=== PATIENT | female | born 1955 | race Caucasian/White ===

== ENCOUNTER → 2017-10-25 10:41 | Outpatient (CLI) | payer OTHER, SELFPAY ==
[2017-10-25 12:47] LABS: AST(SGOT) 19 U/L (15-37); Alanine Aminotransfer ALT/SGPT 30 U/L (13-56); Albumin, Serum 3.7 g/dL (3.2-5.0); Alkaline Phosphatase 70 U/L (45-117); Bilirubin, Direct 0.19 mg/dL (0.00-0.30); Cholesterol 129 mg/dL (200); Globulin 3.2 g/dL (2.2-4.2); High Density Lipoprotein 73 mg/dL; Protein, Total 6.9 g/dL (6.4-8.2); Triglycerides 40 mg/dL; Very Low Density Lipoprotein 8 mg/dL (5-40)
== END ==
PROVIDERS: Family Provider Family Medicine; PCP Family Medicine; Visit Provider Internal Medicine Cardiovascular Disease
DX: E78.5 Hyperlipidemia, unspecified (principal); Z79.899 Other long term (current) drug therapy
CPT/HCPCS: 36415; 80061; 80076

== ENCOUNTER → 2017-11-14 10:41 | Outpatient (CLI) | payer OTHER, SELFPAY ==
--- NOTE | 2017-11-14 10:42 | ECHOD_ITS ---
Reason For Study: CAD/ASHD Procedure This was a 2D Doppler, Color Flow transthoracic echocardiogram. Exam performed in department. Left Ventricle Normal size and thickness. The estimated ejection fraction is 65 %. Normal diastology for age. No regional wall motion abnormalities noted. Right Ventricle Normal size and thickness. Normal systolic function. Atria Normal left atrium. Normal right atrium. Normal atrial septum. Mitral Valve The mitral valve is structurally normal. No prolapse or stenosis seen. Tricuspid Valve Normal tricuspid valve. Mild (1+) tricuspid valve insufficiency. Right ventricular systolic pressure estimated to be 27 mmHg. Aortic Valve Normal aortic valve. Trisinus/trileaflet aortic valve. Pulmonic Valve Normal pulmonic valve. Great Vessels Normal aortic root. Normal arch. Normal inferior vena cava. Inferior vena cava collapse with sniff. Pericardium/Pleural No pericardial effusion. MMode/2D Measurements & Calculations LVIDd: 4.0 cm IVSd: 0.92 cm Ao root diam: 3.2 cm LVIDs: 2.4 cm LVPWd: 0.55 cm RVDd: 2.7 cm FS: 40.2 % LAV(MOD-bp): 35.9 ml EDV(MOD-sp4): 50.5 ml SV(MOD-sp4): 32.9 ml LAV(MOD-bp) Indexed: 19.2 ml/m2 ESV(MOD-sp4): 17.6 ml LAV(MOD-sp2): 39.0 ml EF(MOD-sp4): 65.2 % LAV(MOD-sp4): 33.1 ml LA A4 area: 14.4 cm2 RA A4 area: 14.2 cm2 Time Measurements MV dec time: 0.28 sec Doppler Measurements & Calculations MV E max pasquale: 78.2 cm/sec Lat Peak E' Pasquale: 11.8 cm/sec Med Peak E' Pasquale: 16.8 cm/sec MV A max pasquale: 63.5 cm/sec E/E' lat: 6.6 E/E' med: 4.6 MV E/A: 1.2 Ao V2 max: 141.0 cm/sec LV V1 max: 112.3 cm/sec PA V2 max: 88.1 cm/sec Ao max P.0 mmHg LV V1 max P.0 mmHg TR max pasquale: 235.7 cm/sec TR max P.2 mmHg Interpretation Summary The estimated ejection fraction is 65 %. Normal diastology for age. Mild (1+) tricuspid valve insufficiency. Right ventricular systolic pressure estimated to be 27 mmHg. Compared to echo report dated 04/07/2015, no appreciable changes noted. Ordering Physician: Jimy Oconnell Referring Physician: ARSENIO SORIANO Performed By: Mariam Higginbotham RDCS
== END ==
PROVIDERS: Family Provider Family Medicine; PCP Family Medicine; Visit Provider Internal Medicine Cardiovascular Disease
DX: I25.10 Atherosclerotic heart disease of native coronary artery without angina pectoris (principal); I25.2 Old myocardial infarction
CPT/HCPCS: 93306

== ENCOUNTER → 2017-11-24 13:23 | Outpatient (CLI) | payer OTHER, SELFPAY ==
--- NOTE | 2017-11-24 13:24 | STE_ITS ---
Reason For Study: CHEST PAIN Stress Results Protocol: Bradley Protocol Maximum Predicted HR: 160 bpm Target HR: 136 bpm% Max imum Predicted HR: 101 % DurationHeart Rate Stage (mm:ss) (bpm) BPCom ment BASELINE 79 150/90 STAGE 1 3:00 13 4 182/98 STAGE 2 3:00 15 5 194/98 STAGE 3 1:00 16 2 / SOB , FATIGUE RECOVERY 105 152/9 0 Stress Duration: 7:00 mm:ss Maximum Stress HR: 162 bpm Baseline Echocardiogram Findings The estimated ejection fraction is 65 %. Stress Echo Wall motion Data Resting WMIntermediate WMStress WM Resting Wall Motion No regional wall motion abnormalities noted. EKG Data The baseline ECG demonstrates normal sinus rhythm with at rate of _ beats per minute. The patient exercised according to the regular Bradley protocol for a total duration of 7:00. The maximum heart rate attained was 164 beats per minute. This was 102% of maximum predicted heart rate. The patient exercised into stage 3 of the Bradley protocol. During stress, there were no ST or T wave changes noted to suggest ischemia. No clinical angina was noted. No arrhythmias noted. Interpretation Summary The estimated ejection fraction is 65 %. Normal adequate treadmill echocardiogram. Negative for ischemia by EKG and echocardiographic criteria. No anginal symptoms noted. No arrhythmias noted. Hypertensive blood pressure response to exercise. Average exercise capacity for age. Test terminated due to dyspnea and target heart rate achieved. Final LVEF of 75%. Ordering Physician: Jimy Oconnell Referring Physician: Jimy Oconnell Performed By: Gillian Uribe RDCS
== END ==
PROVIDERS: Family Provider Family Medicine; PCP Family Medicine; Visit Provider Internal Medicine Cardiovascular Disease
DX: I25.10 Atherosclerotic heart disease of native coronary artery without angina pectoris (principal); I25.2 Old myocardial infarction; Z95.5 Presence of coronary angioplasty implant and graft
CPT/HCPCS: 93017; 93350

== ENCOUNTER → 2018-03-14 11:24 | Outpatient (CLI) | payer OTHER, SELFPAY ==
--- NOTE | 2018-03-14 11:29 | RAD_ITS ---
STUDY: X-RAY - LUMBAR SPINE REASON FOR EXAM: Female, 62 years old. Lower back pain. Right hip pain. No recent injury. TECHNIQUE: 5 view(s) of the lumbar spine were obtained. COMPARISON: None FINDINGS: Normal lumbar lordosis. There is no substantial scoliosis. There is a normal alignment of the vertebrae. Minimal endplate spondylosis at L2-3. Normal disc space heights. There is no evidence of acute fracture or loss of vertebral axial height. The soft tissue structures are unremarkable. RAD/L/S Spine Min 4 Views IMPRESSION: Minimal degenerative changes of the lumbar spine. Electronically Signed: Frank Florez DO at 21:18 EDT Tel [phone], Service support ,
== END ==
PROVIDERS: Family Provider Family Medicine; PCP Family Medicine; Visit Provider Family Medicine
DX: G57.01 Lesion of sciatic nerve, right lower limb (principal)
CPT/HCPCS: 72110

== ENCOUNTER → 2018-04-25 12:18 | Outpatient (CLI) | payer OTHER, SELFPAY ==
--- NOTE | 2018-04-25 12:21 | RAD_ITS ---
STUDY: X-RAY - RIGHT KNEE REASON FOR EXAM: Female, 62 years old. Knee pain TECHNIQUE: 4 view(s) of the knee. COMPARISON: None. FINDINGS: Normal visualized distal femur. Normal visualized proximal tibia and fibula. Normal proximal tibiofibular articulation. There is mild degenerative arthrosis of the medial femorotibial compartment. Normal lateral femorotibial compartment. There is mild degenerative arthrosis of the patellofemoral articulation. The soft tissue structures are unremarkable. RAD/Knee 4 or More Views IMPRESSION: Degenerative arthrosis. Electronically Signed: Azul Escalante MD at 7:55 EDT Tel , Service support ,
== END ==
PROVIDERS: Family Provider Family Medicine; PCP Family Medicine; Visit Provider Family Medicine
DX: M25.562 Pain in left knee (principal)
CPT/HCPCS: 73564

== ENCOUNTER → 2018-05-01 09:32 | Outpatient (CLI) | payer OTHER, SELFPAY ==
[2018-05-01 12:28] LABS: AST(SGOT) 23 U/L (15-37); Alanine Aminotransfer ALT/SGPT 28 U/L (13-56); Albumin, Serum 3.8 g/dL (3.2-5.0); Alkaline Phosphatase 84 U/L (45-117); Bilirubin, Direct 0.25 mg/dL (0.00-0.30); Cholesterol 138 mg/dL (200); Globulin 3.2 g/dL (2.2-4.2); High Density Lipoprotein 85 mg/dL; Triglycerides 40 mg/dL; Very Low Density Lipoprotein 8 mg/dL (5-40)
== END ==
PROVIDERS: Family Provider Family Medicine; PCP Family Medicine; Visit Provider Internal Medicine Cardiovascular Disease
DX: E78.5 Hyperlipidemia, unspecified (principal); Z79.899 Other long term (current) drug therapy
CPT/HCPCS: 36415; 80061; 80076

== ENCOUNTER 2018-05-07 11:30 | Outpatient (RCR) | payer OTHER, SELFPAY ==
--- NOTE | 2018-05-07 11:58 | HP.PTDCSUM ---
HP - PT D/C Summary It has been my pleasure to treat MARY VICTOR under orders from Jericho Gastelum, for the diagnosis of PIRIFORMIS AND SCIATICA RIGHT SIDE for a total of 9 visit(s). Discharge Date: 05/07/18 Please see the following information for a summary of their discharge status. - Subjective Subjective: doing well .. no pain - Pain Right Lower Extremity Pain Intensity (Out of 10): 0 - Overall Improvement % Improvement: 75 - Objective Objective/Function: POSTURE: WFL. FLEXABLITY: WFL. MMT: quads/hams /hip 4/5. -SLR. LUMBAR ROM: flexion MIN ,extension min loss,side glides - Goals Goal 1:: Independant with HEP. Goal Progress: Goal Met Goal 2:: Decrease pain 50% right L-S region symptoms below knee to improve function. Goal Progress: Goal Met Goal 3:: Patient to improve ablity to squat and perform job demands /jousework tasks with mi limiations Goal Progress: Goal Met Goal 4:: Patient be d/c to prophalaxis Goal Progress: Goal Met - Plan Plan: D/C TO HEP - D/C Information Discharge Comments: HEP ,PLANS TO JOIN If there are questions or concerns regarding this patient's physical therapy, please feel free to call me at [phone]. Thank you for the referral of this patient. Sincerely, Izaiah Padilla, PT,
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
== END 2018-05-07 19:00 | disposition home or self-care (01) ==
LOC: PT 11:30
PROVIDERS: Family Provider Family Medicine; PCP Family Medicine; Visit Provider Family Medicine
DX: M54.31 Sciatica, right side (principal)
CPT/HCPCS: 97014; 97110; 97162; 97530; G0283

== ENCOUNTER → 2018-05-18 07:06 | Outpatient (CLI) | payer OTHER, SELFPAY ==
--- NOTE | 2018-05-18 07:45 | MRI_ITS ---
STUDY: MRI RIGHT KNEE REASON FOR EXAM: Female, 62 years old. Posterior knee pain x6 months TECHNIQUE: Standardized fat and water weighted pulse sequences were obtained in all 3 orthogonal planes. COMPARISON: X-ray April 25, 2018 FINDINGS: Normal medial meniscus. Normal hyaline cartilage of the medial femorotibial compartment. There is mild osteoarthritic spur formation of the medial knee compartment. Normal medial collateral ligamentous complex (MCL). Normal distal semimembranosus, gracilis and semitendinosus tendons. Normal lateral meniscus. Normal hyaline cartilage of the lateral femorotibial compartment. There is mild osteoarthritic spur formation of the lateral knee compartment. Normal proximal tibiofibular articulation. Normal lateral collateral (fibular) ligament. Normal popliteus tendon. Normal biceps femoris tendon. Normal anterior cruciate ligament (ACL). Normal posterior cruciate ligament (PCL). There is arthrosis of the patellofemoral articulation. There is diffuse, full thickness articular cartilage loss of the patellofemoral compartment. Normal medial and lateral patellar retinaculum. Normal quadriceps tendon. Normal patellar tendon. Normal Hoffa's fat pad. There is a moderate volume joint effusion. There is 0.6 diminished signal in the body of the posterior joint, series 3 image 27/40 There is a 3.3 cm Funes's cyst. The soft tissues are unremarkable. The otherwise visualized osseous structures are unremarkable. MRI/Lower Ext Joint Only (Routine) IMPRESSION: No meniscal tear. Tricompartmental change. Joint effusion with loose body in popliteal cyst Electronically Signed: Chava Rojas MD at 10:48 EDT , Service support ,
== END ==
PROVIDERS: Family Provider Family Medicine; PCP Family Medicine; Referring Provider Family Medicine; Visit Provider Family Medicine
DX: M25.561 Pain in right knee (principal)
CPT/HCPCS: 73721

== ENCOUNTER → 2018-06-19 12:22 | Outpatient (CLI) | payer OTHER, SELFPAY ==
--- NOTE | 2018-06-19 12:24 | BI_ITS ---
MAMMOGRAPHY - BILATERAL SCREENING REASON FOR EXAM: Female, 62 years old. Routine annual screening examination. PERTINENT HISTORY: Non-contributory. TECHNIQUE: Digital bilateral breast peter (3D mammographic acquisition) in the CC and MLO projections. 2-D mediolateral oblique (MLO) and craniocaudad (CC) views of both breasts were obtained. CAD: Full Field Digital Mammography with Computer Added Detection was performed. COMPARISON: Comparison is made with prior study dated May 27, 2015. FINDINGS: Breast Composition: There are scattered areas of fibroglandular density. There are no dominant masses or suspicious calcifications. Stable small bilateral axillary lymph nodes. No other significant abnormalities are identified. There has been no significant change since the prior study. BI/SCREENING MAMM (CAD), BILAT IMPRESSION: Stable bilateral screening mammogram. Yearly follow-up mammogram recommended. (A) ASSESSMENT CATEGORY: BIRADS Category 2: Benign. A letter regarding these results will be sent to the patient by the facility within 30 days. Approximately 10% of breast cancers are not detected by mammography. A normal mammogram should not delay biopsy of a clinically suspicious abnormality. [id number] Electronically Signed: Jimenez Perera MD at 15:38 EST Tel [phone], Service support ,
--- NOTE | 2018-06-19 12:26 | BD_ITS ---
STUDY: DUAL ENERGY X-RAY ABSORPTIOMETRY / DXA REASON FOR EXAM: Female, 62 years old. The patient is postmenopausal. Loss of height. TECHNIQUE: Bone Mineral Density (BMD) measurements of lumbar spine and bilateral hips were obtained. COMPARISON: None. FINDINGS: Lumbar Spine (L1-L4): g/cm2 (0.946) / T-score (-1.9) / Z-score (-0.7) Findings are suggestive of osteopenia with a moderate fracture risk. Left Femur Total: g/cm2 (0.957) / T-score (-0.4) / Z-score (0.5) Left Femoral Neck: g/cm2 (0.934) / T-score (-0.7) / Z-score (0.5) Right Femur Total: g/cm2 (0.938) / T-score (-0.6) / Z-score (0.4) Right Femoral Neck: g/cm2 (0.907) / T-score (-0.9) / Z-score (0.3) BD/Dexa Bone Density Study IMPRESSION: The patient is considered osteopenic as outlined below according to World Harshad Organization (WHO) criteria with a moderate fracture risk. Reference Information: The T-score is the number of standard deviations above or below the standard which is normal for young adults at their peak bone mineral density. The World Health Organization (WHO) interprets the T-scores as follows: Above -1 Normal bone density Between -1 and -2.5 Osteopenia Equal to / or below -2.5 Osteoporosis As a practical clinical guideline, osteopenia may be graded as follows: Mild -1 through -1.5 Moderate -1.6 through -2.0 Severe -2.1 through -2.4 The Z-score is the number of standard deviations above or below age-matched controls. A Z-score of less than -1.5 would be considered abnormal. References: 1. NIH Osteoporosis and Related Bone Diseases http://www.osteo.org 2. International Society for Clinical Densitometry http://www.iscd.org 3. National Osteoporosis Foundation http://www.nof.org Electronically Signed: Jimenez Perera MD at 9:27 EST Tel [phone], Service support ,
== END ==
PROVIDERS: Family Provider Family Medicine; PCP Family Medicine; Referring Provider Family Medicine; Visit Provider Family Medicine
DX: Z12.31 Encounter for screening mammogram for malignant neoplasm of breast (principal); M85.80 Other specified disorders of bone density and structure, unspecified site; Z78.0 Asymptomatic menopausal state
CPT/HCPCS: 77063; 77067; 77080

== ENCOUNTER → 2018-08-17 14:22 | Outpatient (CLI) | payer OTHER, SELFPAY ==
[2018-06-08 16:05] VITALS: BMI 23.8
[2018-08-17 15:49] LABS: Absolute Lymphocyte Count 1.62 X10^3/ul (0.83-4.51); Absolute Neutrophil Count 2.7 X10^3/uL (2.0-7.7); Basophil# 0.05 X10^3/uL; Eosinophil# 0.12 X10^3/uL; Eosinophils% 2.5 % (0-5); Hematocrit 39.6 % (37-47); Hemoglobin 13.1 g/dl (12.0-15.0); Lymphocyte # 1.62 X10^3/ul (4.0); Lymphocyte % 33.3 % (19-41); Mean Corp Hgb Conc 33.1 g/gl (32-36); Mean Corpuscular Hgb 31.4 pg (27.0-32.0); Mean Platelet Vol. 11.4 fl (6.2-12.0); Monocyte# 0.35 X10^3/uL; Monocyte% 7.2 % (0-10); Neutrophil # 2.72 X10^3/uL (2.7-7.7); Neutrophil % 55.8 % (47-70); Platelet Count 173 K/mm3 (150-450); RBC Distribution Width CV 12.6 % (11.6-14.6); RBC Distribution Width SD 42.8 fl (35.1-43.9); Red Blood Count 4.17 M/mm3 (4.2-5.4); White Blood Count 4.9 K/mm3 (4.4-11.0)
[2018-08-17 15:50] LABS: POSITIVE COUNT NO; POSITIVE DIFFERENTIAL NO; POSITIVE MORPHOLOGY NO
[2018-08-17 16:25] LABS: ALB/GLOB Ratio 1.4 RATIO (0.9-2.4); AST(SGOT) 20 U/L (15-37); Alanine Aminotransfer ALT/SGPT 31 U/L (13-56); Albumin, Serum 3.8 g/dL (3.2-5.0); Alkaline Phosphatase 75 U/L (45-117); Anion Gap 9 (5-15); BUN 13 mg/dL (7-18); BUN/Creat Ratio 17.1 RATIO (10-20); Calcium,Total 8.8 mg/dL (8.5-10.1); Chloride 107 mmol/L (98-107); Creatinine, Serum 0.76 mg/dL (0.55-1.02); EST Glomerular Filtration Rate 82 mL/min (>60); Est Glom Filt Rate - Afr Amer 100 mL/min (>60); Ferritin 56 ng/mL (8-252); Globulin 2.7 g/dL (2.2-4.2); Glucose 82 mg/dL (74-106); Iron 101 ug/dL (50-170); Protein, Total 6.5 g/dL (6.4-8.2); Sodium Level 142 mmol/L (136-145)
[2018-08-17 16:43] LABS: Vitamin B12 224 pg/mL (211-911); Vitamin D,25 Hydroxy 40.1 ng/mL (29.95-100.01)
== END ==
PROVIDERS: Family Provider Family Medicine; PCP Family Medicine; Referring Provider Family Medicine; Visit Provider Family Medicine
DX: R53.83 Other fatigue (principal)
CPT/HCPCS: 36415; 80053; 82306; 82607; 82728; 83540; 84443; 85025

== ENCOUNTER → 2018-12-31 08:53 | Outpatient (CLI) | payer OTHER, SELFPAY ==
[2018-12-31 13:59] LABS: Vitamin B12 549 pg/mL (211-911)
== END ==
PROVIDERS: Family Provider Family Medicine; PCP Family Medicine; Referring Provider Family Medicine; Visit Provider Family Medicine
DX: E53.8 Deficiency of other specified B group vitamins (principal)
CPT/HCPCS: 36415; 82607

== ENCOUNTER → 2019-07-17 10:54 | Outpatient (CLI) | payer OTHER, SELFPAY ==
[2019-05-30 11:18] VITALS: BMI 21.9
[2019-07-17 11:54] LABS: AST(SGOT) 24 U/L (15-37); Alanine Aminotransfer ALT/SGPT 33 U/L (13-56); Albumin, Serum 3.7 g/dL (3.2-5.0); Alkaline Phosphatase 80 U/L (45-117); Bilirubin, Direct 0.19 mg/dL (0.00-0.30); Cholesterol 156 mg/dL (200); Globulin 3.1 g/dL (2.2-4.2); High Density Lipoprotein 83 mg/dL; Protein, Total 6.8 g/dL (6.4-8.2); Triglycerides 57 mg/dL; Very Low Density Lipoprotein 11 mg/dL (5-40)
== END ==
PROVIDERS: Family Provider Family Medicine; PCP Family Medicine; Referring Provider Internal Medicine Cardiovascular Disease; Visit Provider Internal Medicine Cardiovascular Disease
DX: E78.00 Pure hypercholesterolemia, unspecified (principal)
CPT/HCPCS: 36415; 80061; 80076

== ENCOUNTER → 2019-08-08 09:19 | Outpatient (CLI) | payer OTHER, SELFPAY ==
[2019-07-22 15:23] VITALS: BMI 23.2
--- NOTE | 2019-08-08 09:19 | ECHOD_ITS ---
Reason For Study: CAD/ASHD Procedure This was a 2D Doppler, Color Flow transthoracic echocardiogram. Exam performed in department. Left Ventricle Normal size and thickness. The estimated ejection fraction is 65 %. Stage 1 diastolic dysfunction. No regional wall motion abnormalities noted. Right Ventricle Normal size and thickness. Normal systolic function. Atria Normal left atrium. Normal right atrium. Normal atrial septum. Mitral Valve The mitral valve is structurally normal. No prolapse or stenosis seen. Trivial mitral valve insufficiency. Tricuspid Valve Normal tricuspid valve. Mild (1+) tricuspid valve insufficiency. Right ventricular systolic pressure estimated to be 27 mmHg. Aortic Valve Normal aortic valve. Trisinus/trileaflet aortic valve. Pulmonic Valve Normal pulmonic valve. Great Vessels Normal aortic root. Normal arch. Normal inferior vena cava. Inferior vena cava collapse with sniff. Pericardium/Pleural No pericardial effusion. MMode/2D Measurements & Calculations LVIDd: 4.9 cm IVSd: 1.0 cm Ao root diam: 3.2 cm LVIDs: 3.1 cm LVPWd: 0.90 cm RVDd: 2.9 cm FS: 37.6 % LAV(MOD-bp): 72.8 ml LA A4 area: 20.9 cm2 LA dimension(2D): 3.6 cm LAV(MOD-bp) Indexed: 39.0 ml/m2 LAV(MOD-sp2): 74.8 ml LAV(MOD-sp4): 62.4 ml RA A4 area: 15.9 cm2 Time Measurements MV dec time: 0.21 sec Doppler Measurements & Calculations MV E max pasquale: 71.6 cm/sec Lat Peak E' Pasquale: 10.3 cm/sec Med Peak E' Pasquale: 7.7 cm/sec MV A max pasquale: 86.1 cm/sec E/E' lat: 6.9 E/E' med: 9.3 MV E/A: 0.83 Ao V2 max: 121.8 cm/sec LV V1 max: 113.9 cm/sec PA V2 max: 81.4 cm/sec Ao max P.9 mmHg LV V1 max P.2 mmHg TR max pasquale: 231.8 cm/sec TR max P.5 mmHg Interpretation Summary The estimated ejection fraction is 65 %. Stage 1 diastolic dysfunction. Trivial mitral valve insufficiency. Mild (1+) tricuspid valve insufficiency. Right ventricular systolic pressure estimated to be 27 mmHg. Compared to echo report dated 11/14/2017, no appreciable changes noted. Ordering Physician: Jimy Oconnell Referring Physician: Jericho Gastelum Performed By: Solange Luna, KATELIN, RVT
== END ==
PROVIDERS: Family Provider Family Medicine; PCP Family Medicine; Referring Provider Internal Medicine Cardiovascular Disease; Visit Provider Internal Medicine Cardiovascular Disease
DX: I25.10 Atherosclerotic heart disease of native coronary artery without angina pectoris (principal); I25.2 Old myocardial infarction; I36.1 Nonrheumatic tricuspid (valve) insufficiency; Z95.5 Presence of coronary angioplasty implant and graft
CPT/HCPCS: 93306

== ENCOUNTER → 2019-08-23 10:10 | Outpatient (CLI) | payer OTHER, SELFPAY ==
[2019-07-22 15:23] VITALS: BMI 23.2
--- NOTE | 2019-08-23 10:12 | STEWCON_ITS ---
Reason For Study: CAD/ASHD Stress Results Protocol: Bradley Protocol WITH DEFINITY Maximum Predicted HR: 159 bpm Target HR: 135 bpm % Maximum Predicted HR: 97 % DurationHeart Rate Stage (mm:ss) (bpm) BP BASELINE 76 170/94 STAGE 1 3:00 118 174/94 STAGE 2 3:00 144 190/100 STAGE 3 3:00 155 210/110 RECOVERY 98 164/98 Stress Duration: 9:00 mm:ss Maximum Stress HR: 155 bpm Baseline Echocardiogram Findings The estimated ejection fraction is 65 %. Stress Echo Wall motion Data Resting WM Intermediate WM Stress WM Resting Wall Motion Wall Motion Stress No regional wall motion No regional wall motion abnormalities noted. abnormalities noted. EKG Data The baseline ECG displays normal sinus rhythm. The patient exercised according to the regular Bradley protocol for a total duration of 9:00. The maximum heart rate attained was 166 beats per minute. This was 104% of maximum predicted heart rate. The patient exercised into stage 4 of the Bradley protocol. During stress, there were no ST or T wave changes noted to suggest ischemia. No clinical angina was noted. No arrhythmias noted. Interpretation Summary The estimated ejection fraction is 65 %. Normal, adequate, treadmill echocardiogram. Negative for ischemia by EKG and echocardiographic criteria. No anginal symptoms noted. Rare PVC noted. Hypertensiive blood pressure response to exercise. Average exercise capacity for age. Test terminated due to the attainment target heart rate. Final LVEF is 75%. Decreased sensitivity due to poor echo windows requirinng Definity enhancing agent. Patient tolerated procedure well. No complications. The study was technically difficult. Contrast injection was performed. Ordering Physician: Jimy Oconnell MD Referring Physician: Jimy Oconnell Performed By: Alcon Medina RCS
== END ==
PROVIDERS: Family Provider Family Medicine; PCP Family Medicine; Referring Provider Internal Medicine Cardiovascular Disease; Visit Provider Internal Medicine Cardiovascular Disease
DX: I25.10 Atherosclerotic heart disease of native coronary artery without angina pectoris (principal); I25.2 Old myocardial infarction; Z95.5 Presence of coronary angioplasty implant and graft
CPT/HCPCS: 93017; 93350; Q9957; A4216; C8928

== ENCOUNTER → 2020-03-09 07:12 | Outpatient (CLI) | payer OTHER, SELFPAY ==
[2019-10-08 10:05] VITALS: BMI 23.2
--- NOTE | 2020-03-09 07:14 | BI_ITS ---
MAMMOGRAPHY - BILATERAL SCREENING REASON FOR EXAM: Female, 64 years old. Routine annual screening examination. PERTINENT HISTORY: Non-contributory. TECHNIQUE: Digital bilateral breast jose luis (3D mammographic acquisition) in the CC and MLO projections. 2-D mediolateral oblique (MLO) and craniocaudad (CC) views of both breasts were obtained. CAD: Full Field Digital Mammography with Computer Added Detection was performed. COMPARISON: Comparison is made with prior study dated 06-19-18 and 05-27-15. FINDINGS: Breast Composition: There are scattered areas of fibroglandular density. There are no dominant masses or suspicious calcifications. Stable benign-appearing bilateral axillary lymph nodes No other significant abnormalities are identified. There has been no significant change since the prior study. BI/SCREEN MAMM (CAD) W/JOSE LUIS BILAT IMPRESSION: Stable bilateral screening mammogram. Yearly follow-up mammogram recommended. (A) ASSESSMENT CATEGORY: BIRADS Category 2: Benign. A letter regarding these results will be sent to the patient by the facility within 30 days. Approximately 10% of breast cancers are not detected by mammography. A normal mammogram should not delay biopsy of a clinically suspicious abnormality. [id number] Electronically Signed: Jimenez Perera, at 8:40 EDT , Service support ,
== END ==
PROVIDERS: PCP Family Medicine; Referring Provider Family Medicine; Visit Provider Family Medicine
DX: Z12.31 Encounter for screening mammogram for malignant neoplasm of breast (principal)
CPT/HCPCS: 77063; 77067

== ENCOUNTER → 2020-04-17 09:45 | Outpatient (CLI) | payer OTHER, SELFPAY ==
[2019-10-08 10:05] VITALS: BMI 23.2
[2020-04-17 11:09] LABS: AST(SGOT) 24 U/L (15-37); Alanine Aminotransfer ALT/SGPT 30 U/L (13-56); Albumin, Serum 3.9 g/dL (3.2-5.0); Alkaline Phosphatase 78 U/L (45-117); Bilirubin, Direct 0.24 mg/dL (0.00-0.30); Cholesterol 140 mg/dL (200); Globulin 3.1 g/dL (2.2-4.2); High Density Lipoprotein 82 mg/dL; Triglycerides 45 mg/dL; Very Low Density Lipoprotein 9 mg/dL (5-40)
== END ==
PROVIDERS: PCP Family Medicine; Referring Provider Internal Medicine Cardiovascular Disease; Visit Provider Internal Medicine Cardiovascular Disease
DX: E78.00 Pure hypercholesterolemia, unspecified (principal)
CPT/HCPCS: 80061; 80076

== ENCOUNTER 2020-04-29 17:15 | Outpatient (RCR) | payer OTHER, SELFPAY ==
[2019-10-08 10:05] VITALS: BMI 23.2
== END 2020-04-29 18:00 | disposition home or self-care (01) ==
LOC: EMPH 17:15
PROVIDERS: PCP Family Medicine; Visit Provider Family Medicine Geriatric Medicine
DX: Z11.59 Encounter for screening for other viral diseases (principal)
CPT/HCPCS: 87635; U0003

== ENCOUNTER 2020-06-11 15:52 | Outpatient (RCR) | payer OTHER, SELFPAY ==
[2019-10-08 10:05] VITALS: BMI 23.2
[2020-05-20 14:44] VITALS: BMI 22.8
== END 2020-06-13 23:59 ==
LOC: EMPH 15:52
PROVIDERS: PCP Family Medicine; Referring Provider Family Medicine Geriatric Medicine; Visit Provider Family Medicine Geriatric Medicine
DX: Z03.818 Encounter for observation for suspected exposure to other biological agents ruled out (principal)
CPT/HCPCS: 87426

== ENCOUNTER 2020-07-08 13:39 | Outpatient (RCR) | payer OTHER, SELFPAY ==
[2020-05-20 14:44] VITALS: BMI 22.8
== END 2020-07-13 23:59 ==
LOC: EMPH 13:39
PROVIDERS: PCP Family Medicine; Referring Provider Family Medicine Geriatric Medicine; Visit Provider Family Medicine Geriatric Medicine
DX: Z03.818 Encounter for observation for suspected exposure to other biological agents ruled out (principal)
CPT/HCPCS: 87426

== ENCOUNTER 2020-08-10 11:42 | Outpatient (RCR) | payer OTHER, SELFPAY ==
[2020-05-20 14:44] VITALS: BMI 22.8
[2020-08-10 11:40] LABS: Probe Check PASS; Specimen Processing Control PASS
== END 2020-08-13 23:59 ==
LOC: EMPH 11:42
PROVIDERS: PCP Family Medicine; Referring Provider Family Medicine Geriatric Medicine; Visit Provider Family Medicine Geriatric Medicine
DX: Z03.818 Encounter for observation for suspected exposure to other biological agents ruled out (principal)
CPT/HCPCS: 87426; 87635; U0002

== ENCOUNTER 2020-11-13 08:47 | Emergency (ER) | payer OTHER, SELFPAY ==
[2020-05-20 14:44] VITALS: BMI 22.8
[2020-11-13 08:48] VITALS: BP 197/101; PULSE 87; RESP 18; TEMP 36.9; O2SAT 100; BMI 23.6
[2020-11-13 09:00] VITALS: BP 199/99; PULSE 75; RESP 15; O2SAT 100
--- NOTE | 2020-11-13 09:04 | ED.RN ---
No visual acuity done per verbal MD instruction.
--- NOTE | 2020-11-13 09:05 | EKG12_ITS ---
Test Reason : LEFT ARM PAIN Blood Pressure : / mmHG Vent. Rate : 071 BPM Atrial Rate : 071 BPM P-R Int : 146 ms QRS Dur : 124 ms QT Int : 440 ms P-R-T Axes : 065 029 011 degrees QTc Int : 478 ms Normal sinus rhythm Right bundle branch block Abnormal ECG Confirmed by WALLACE PAPPAS, MISTI ([id number]), desk editor VAZQUEZ PÉREZ ([id number]) on 11/18/2020 8:08:38 AM Referred By: NAIF Confirmed By:MISTI GONSALEZ MD
--- NOTE | 2020-11-13 09:10 | ED.DCSUM_ITS ---
- ER Visit Summary Date of Service: 11/13/20 Chief Complaint: Left shoulder pain and left eye twitching History of Present Illness: The patient is a 65 F who presents with left shoulder pain and left eye twitching that has been intermittent over the past week. Patient describes her pain as aching. Patient states it is over the posterior aspect of her left shoulder. Patient states nothing makes it better nothing makes it worse. Patient states this pain is different from the pain she had with her OK 6 years ago. Patient states it is her left eyelid that twitches occasionally. Patient is unsure if this is related to allergies. Patient denies any visual changes. Patient denies any foreign body sensation. Patient denies any shortness of breath. Patient denies any nausea or vomiting. Patient denies any diaphoresis. Physical Examination: Vital signs are stable except for an elevated blood pressure of 197/101. Patient is afebrile. Patient is in no acute distress. Oral mucosa is pink and moist. Neck is supple. Trachea is midline. There is no JVD noted. Heart was regular rate and rhythm. Lungs are clear and equal bilaterally. Abdomen is soft. Bowel sounds are normal. There is no tenderness. There is no rebound or guarding noted. Skin is warm dry. Cranial nerves II through XII are intact. There are no focal motor or sensory deficits noted. Extremities are intact. There is no calf tenderness or edema. There is mild tenderness and spasm of the left supraspinatus muscle. There is no bony crepitance or step-off. There is good range of motion of the left shoulder. Test Results: EKG was obtained. On my interpretation, it showed a normal sinus rhythm with a rate of []. ME interval, QRS interval, and QTc intervals were all normal. [place] was normal. There are no acute ST or T wave changes. There is a right bundle branch block pattern noted. There are no prior EKGs available for comparison. Portable 1 view chest x-ray was obtained. On my interpretation, lung macias are clear. There is normal cardiac silhouette. Bony thorax is normal. There is no acute process noted. Radiologist also interpreted the x- ray and agrees. CBC, basic metabolic profile, and troponin were obtained and were within normal limits. Emergency Department Course and Treatment: Patient was given aspirin. Patient's blood pressure improved to 173/82. Patient was feeling better on reevaluation. Patient was advised of her findings. Patient has a HEART score of 3. Patient was advised that this is low risk for acute cardiac event. 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 Patient was instructed to return if worse in any way. Patient understood and was agreeable with the plan. All questions were answered. Disposition: Discharge home Impression: 1. Left shoulder pain This note was generated with [employer] dictation software. It may contain incorrect words, spelling, and punctuation that were not noted in review of the chart prior to signing ED Disposition - Plan for ED Patient: Disposition: Home or Assisted Living Diagnosis: Left shoulder pain Instructions: ED Shoulder Pain, Uncertain Cause Referrals: Kaushal Gastelum MD [Primary Care Provider] - 5-7 Days
[2020-11-13 09:36] LABS: Absolute Neutrophil Count 3.2 X10^3/uL (2.0-7.7); Basophil% 1.2 % (0-1); Eosinophils% 2.6 % (0-5); Hematocrit 41.5 % (37-47); Hemoglobin 13.7 g/dL (12.0-15.0); Mean Corpuscular Hgb 31.3 pg (27.0-32.0); Mean Corpuscular Volume 94.7 fL (81-99); Mean Platelet Vol. 10.8 fl (6.2-12.0); Neutrophil # 3.24 X10^3/uL (2.7-7.7); Platelet Count 199 K/mm3 (150-450); RBC Distribution Width CV 13.1 % (11.6-14.6); RBC Distribution Width SD 45.7 fl (35.1-43.9); Red Blood Count 4.38 M/mm3 (4.2-5.4)
[2020-11-13 09:37] LABS: Basophil# 0.06 X10^3/uL; Eosinophil# 0.13 X10^3/uL; Monocyte# 0.35 X10^3/uL; NRBC Flagged by Analyzer 0 % (0-5)
[2020-11-13] MEDS: Aspirin 81 MG TAB.CHEW 324 MG PO (09:51)
--- NOTE | 2020-11-13 09:53 | RAD_ITS ---
STUDY: X-RAY CHEST REASON FOR EXAM: Female, 65 years old. Chest pain TECHNIQUE: Single AP portable view of the chest. COMPARISON: Comparison is made with prior study dated 11/18/2014. FINDINGS: EKG electrodes are seen. Hyperinflation. The lungs are clear. There is no demonstrated pleural abnormality. Normal size heart. Normal mediastinum and isidro. Normal visualized pulmonary arteries. Normal visualized aortic arch and descending thoracic aorta. Normal visualized thoracic spine. Normal visualized ribs, clavicles, and shoulders. There is no demonstrated abnormality of the visualized soft tissue structures of the upper abdomen. RAD/Chest 1 View (Portable) IMPRESSION: Hyperinflation. The lungs are clear. Electronically Signed: Jimenez Perera MD at 10:10 EDT , Service support ,
[2020-11-13 09:54] LABS: Anion Gap 4 (5-15); BUN 11 mg/dL (7-18); BUN/Creat Ratio 14.5 RATIO (10-20); Calcium,Total 9.1 mg/dL (8.5-10.1); Chloride 105 mmol/L (98-107); Creatinine, Serum 0.76 mg/dL (0.55-1.02); EST Glomerular Filtration Rate 82 mL/min (>60); Est Glom Filt Rate - Afr Amer 99 mL/min (>60); Estimated Creatinine Clearance 79.18 ml/min; Glucose 95 mg/dL (74-106); Potassium 3.7 mmol/L (3.5-5.1); Sodium Level 138 mmol/L (136-145)
[2020-11-13 09:55] VITALS: O2SAT 99
[2020-11-13 10:32] VITALS: BP 184/79; PULSE 62; RESP 15; O2SAT 97
== END 2020-11-13 10:35 | disposition home or self-care (01) ==
PROVIDERS: Emergency Provider Emergency Medicine; PCP Family Medicine
DX: M25.512 Pain in left shoulder (principal); I25.10 Atherosclerotic heart disease of native coronary artery without angina pectoris; I10 Essential (primary) hypertension; I25.2 Old myocardial infarction; M19.90 Unspecified osteoarthritis, unspecified site; Z79.82 Long term (current) use of aspirin; Z79.899 Other long term (current) drug therapy
CPT/HCPCS: 71045; 80048; 84484; 85025; 93005; 99285

== ENCOUNTER → 2021-04-01 12:35 | Outpatient (CLI) | payer OTHER, SELFPAY ==
[2020-05-20 14:44] VITALS: BMI 22.8
--- NOTE | 2021-04-01 12:37 | BI_ITS ---
MAMMOGRAPHY - BILATERAL SCREENING REASON FOR EXAM: Female, 65 years old. Routine annual screening examination. PERTINENT HISTORY: Non-contributory. TECHNIQUE: Digital bilateral breast peter (3D mammographic acquisition) in the CC and MLO projections. 2-D mediolateral oblique (MLO) and craniocaudad (CC) views of both breasts were obtained. CAD: Full Field Digital Mammography with Computer Added Detection was performed. COMPARISON: Comparison is made with prior study dated 03/09/2020 and 06/19/2018. FINDINGS: Breast Composition: There are scattered areas of fibroglandular density. There are no dominant masses or suspicious calcifications. Stable small benign-appearing bilateral axillary lymph nodes. No other significant abnormalities are identified. There has been no significant change since the prior study. BI/SCREENING MAMM (CAD), BILAT IMPRESSION: Stable bilateral screening mammogram. Yearly follow-up mammogram recommended. (A) ASSESSMENT CATEGORY: BIRADS Category 2: Benign. A letter regarding these results will be sent to the patient by the facility within 30 days. Approximately 10% of breast cancers are not detected by mammography. A normal mammogram should not delay biopsy of a clinically suspicious abnormality. [id number] Electronically Signed: Jimenez Perera MD at 13:57 EDT , Service support ,
== END ==
PROVIDERS: PCP Family Medicine; Referring Provider Family Medicine; Visit Provider Family Medicine
DX: Z12.31 Encounter for screening mammogram for malignant neoplasm of breast (principal)
CPT/HCPCS: 77067

== ENCOUNTER → 2022-04-13 | Outpatient (CLI) | payer OTHER, SELFPAY ==
--- NOTE | 2022-04-13 12:17 | BI_ITS ---
MAMMOGRAPHY - BILATERAL SCREENING REASON FOR EXAM: Female, 66 years old. Routine annual screening examination. PERTINENT HISTORY: Non-contributory. TECHNIQUE: Digital bilateral breast jose luis (3D mammographic acquisition) in the CC and MLO projections. 2-D mediolateral oblique (MLO) and craniocaudad (CC) views of both breasts were obtained. CAD: Full Field Digital Mammography with Computer Added Detection was performed. COMPARISON: Comparison is made with prior study 04/01/2021 and 03/09/2020. FINDINGS: Breast Composition: There are scattered areas of fibroglandular density. There are no dominant masses or suspicious calcifications. Stable small benign-appearing bilateral axillary lymph nodes. No other significant abnormalities are identified. There has been no significant change since the prior study. BI/SCRN MAMM (CAD)W/JOSE LUIS BILAT IMPRESSION: Stable bilateral screening mammogram. Yearly follow-up mammogram recommended. (A) ASSESSMENT CATEGORY: BIRADS Category 2: Benign. A letter regarding these results will be sent to the patient by the facility within 30 days. Approximately 10% of breast cancers are not detected by mammography. A normal mammogram should not delay biopsy of a clinically suspicious abnormality. [id number] Electronically Signed: Jimenez Perera MD at 12:54 EDT ,
== END | disposition home or self-care (01) ==
PROVIDERS: PCP Family Medicine; Referring Provider Family Medicine; Visit Provider Family Medicine
DX: Z12.31 Encounter for screening mammogram for malignant neoplasm of breast (principal)
CPT/HCPCS: 77063; 77067

== ENCOUNTER → 2022-05-04 | Outpatient (CLI) | payer OTHER, SELFPAY ==
[2022-05-04 17:53] LABS: Anion Gap 8 (5-15); BUN 12 mg/dL (7-18); BUN/Creat Ratio 15.9 RATIO (10-20); Calcium,Total 9.2 mg/dL (8.5-10.1); Chloride 105 mmol/L (98-107); Creatinine, Serum 0.75 mg/dL (0.55-1.02); EST Glomerular Filtration Rate 82 mL/min (>60); Est Glom Filt Rate - Afr Amer 99 mL/min (>60); Glucose 90 mg/dL (74-106); Potassium 3.8 mmol/L (3.5-5.1); Sodium Level 141 mmol/L (136-145)
== END | disposition home or self-care (01) ==
LOC: MFPLAB 14:53
PROVIDERS: PCP Family Medicine; Referring Provider Family Medicine; Visit Provider Family Medicine
DX: Z00.00 Encounter for general adult medical examination without abnormal findings (principal); I10 Essential (primary) hypertension
CPT/HCPCS: 36415; 80048

== ENCOUNTER 2023-01-16 19:08 | Emergency (ER) | payer OTHER, SELFPAY ==
[2023-01-16 19:09] VITALS: BP 213/100; PULSE 105; RESP 18; TEMP 36.1; O2SAT 100; BMI 23.8
--- NOTE | 2023-01-16 19:41 | CT_ITS ---
EXAM: CT HEAD WITHOUT INTRAVENOUS CONTRAST CLINICAL INDICATION: vertigo TECHNIQUE: Multiple axial images were obtained of the head without intravenous contrast. This CT exam was performed using one or more of the following dose reduction techniques: automated exposure control, adjustment of the mA and/or kV according to patient size, and/or use of iterative reconstruction technique. RADIATION DOSE: CTDIvol = 44.99 mGy, DLP = 863.60 mGy-cm COMPARISON: No relevant prior studies available. FINDINGS: BRAIN AND EXTRA-AXIAL SPACES: Unremarkable. No intra- or extra-axial hemorrhage. No evidence of acute infarct. No intracranial mass or mass effect. There is preservation of the lundy/white matter interface. Posterior fossa structures are unremarkable. Ventricles are appropriate for age. No hydrocephalus. Basal cisterns are patent. BONES/JOINTS: Unremarkable. No discrete lytic or blastic abnormalities. SINUSES: Unremarkable as visualized. Clear. MASTOID AIR CELLS: Unremarkable. Clear. ORBITS: Visualized globes, extraocular muscles, optic nerves and retrobulbar fat appear unremarkable. CT/Brain/Head without Contrast IMPRESSION: Negative head/brain CT without intravenous contrast. Electronically Signed: Sammy Barragan MD at 20:15 EDT ,
--- NOTE | 2023-01-16 19:41 | EKG12_ITS ---
Test Reason : DYSRHYTHMIA Blood Pressure : / mmHG Vent. Rate : 088 BPM Atrial Rate : 088 BPM P-R Int : 142 ms QRS Dur : 122 ms QT Int : 402 ms P-R-T Axes : 068 022 -04 degrees QTc Int : 486 ms Normal sinus rhythm Right bundle branch block T wave abnormality, consider inferior ischemia Abnormal ECG Confirmed by ELSA PAPPAS, KAYE ([id number]), editor greeting card RUSS DEXTER ([id number]) on 01/18/2023 9:35:14 AM Referred By: GERALD Confirmed By:KAYE HUNTER MD
--- NOTE | 2023-01-16 19:43 | EDS_ITS ---
HPI History of Present Illness Chief Complaint: Hypertension Narrative Narrative: Patient presents with elevated blood pressure and a couple episodes of transient vertigo. Patient states that when she rolled over in bed this morning she got vertigo. She went back to sleep. She was able to get up and do normal things. When she tilted her head far to the left she got vertigo for a moment again but then went away. As long as she does not make a quick move or bending to the side she feels fine. No numbness tingling weakness or discoordination though. No headache. She does check her blood pressure frequently and noticed that today her blood pressure is elevated. Normally it is in the low 100s. She was switched from metoprolol 25 twice a day to losartan back in June. She is also on hydrochlorothiazide. She does admit that she ate differently over the weekend and had some very salty burritos that may have contributed to this. She also has some allergy symptoms. But she has no chest pain trouble breathing. She has had a heart attack in 2014 but no symptoms related to that at all. [facility] Medical History (Updated 01/16/23 @ 20:[address] Jasper Hurst MD) Allergies Arthritis Atherosclerosis of [place] coronary artery of [place] heart without angina pectoris Bilateral headaches Essential (primary) hypertension Mixed hyperlipidemia Non-rheumatic tricuspid valve insufficiency Old myocardial infarction (~11/18/14) Home Medications aspirin 81 mg tablet,delayed release (Adult Low Dose Aspirin) 81 mg PO Q OTHER DAY 12/09/20 [History Last Taken Unknown] atorvastatin 80 mg tablet 80 mg PO QHS #90 tabs 10/25/21 [Rx Last Taken Unknown] hydrochlorothiazide 25 mg tablet 25 mg PO DAILY #90 tabs 04/19/22 [Rx Last Taken Unknown] losartan 25 mg tablet 50 mg PO DAILY 01/16/23 [History Last Taken Unknown] Allergy/AdvReac Type Severity Reaction Status Date / Time codeine Allergy Itching Verified 01/16/23 19:09 lisinopril AdvReac Intermediate cough Verified 01/16/23 19:09 Family History Other Cancer Hypertension Surgical History H/O total hysterectomy History of coronary artery stent placement (~11/18/14) Social History Smoking Status: Former smoker alcohol intake: current alcohol intake frequency: a few times a month Alcohol type: wine substance use type: does not use what type of physical activity do you participate in: walking frequency: 3-4 times per week ROS ROS ED ROS Narrative A complete review of systems was performed and is negative except as documented in the history of present illness. Some specific details below. Constitutional: No recent fevers or chills. No malaise. EYE: No discharge, visual complaints, or pain. ENT: No difficulty swallowing. No swelling. No pain. No reflux symptoms. Mild nasal congestion and runny nose. She occasionally feels as though her ears might be plugged slightly. But no pain. CV: No chest pain pressure tightness or palpitations. Respiratory: No cough or trouble breathing. GI: No abdominal pain. No nausea vomiting diarrhea. No blood in stool. : No frequency dysuria or hematuria. Musculoskeletal: No recent trauma. No pains. No swelling. Skin: No rash. Nondiaphoretic. Neuro: No weakness or numbness. Please see history of present illness. Endocrine: No polyuria or polydipsia. EXAM Physical Exam Narrative Exam Narrative: CONSTITUTIONAL: Patient is nontoxic in appearance. The patient looks comfortable. Work of breathing looks normal. HEENT: No notable trauma. Mucous membranes moist. No sinus tenderness. No indication of pain with swallowing. EYES: No conjunctival injection. No proptosis. NECK:No JVD. No stridor. No bruits are heard. CARDIOVASCULAR: Regular rate. Regular rhythm. No notable murmur. No JVD. Heart rate on the monitor is about 90 and appears to be normal sinus rhythm. RESPIRATORY: No respiratory distress. Breathing is unlabored. No wheezes. No rhonchi. No rales. No pain with a deep breath. No chest wall tenderness. GASTROINTESTINAL: Not distended. Bowel sounds are normal. No tenderness. No guarding. No rebound. No palpable mass. No bruit is heard. GENITOURINARY: No tenderness over the bladder. No CVA tenderness. MUSCULOSKELETAL: Atraumatic. No peripheral edema. No cord. No tenderness along the deep venous system. No asymmetry. No distended veins. NEUROLOGICAL: Patient is alert and appropriate. No focal deficit noted. No discoordination. No sensory loss. Speech is normal. She has no symptoms of any neurologic deficit or vertigo at this time either. SKIN: No noted rashes. No diaphoresis. PSYCHIATRIC: Patient is calm. Mood is appropriate. Const Vital Signs: 01/16/23 19:09 01/16/23 19:19 01/16/23 20:35 Temperature 97 F L Temperature Source Temporal Pulse Rate 105 H 72 Respiratory Rate 18 18 Respiratory Effort Normal Non-Labored Respiratory Pattern Normal Blood Pressure 213/100 H 163/88 H Blood Pressure Mean 137 113 Pulse Ox 100 98 Oxygen Delivery Method Room Air Room Air MDM MDM MDM Narrative Medical decision making narrative: My independent interpretation the patient's CT scan of the head without contrast shows no acute process. Final reading was negative head/brain CT without IV contrast. Patient CBC is normal. Patient's electrolytes are normal other than minimally low potassium at 3.1. This should self correct with diet. Patient's blood pressure is down to 168/88 at this time without therapy. She now recalls that she took her medicines with a glass of wine after dinner last night. Normally she takes them separately later in the evening. This certainly could have caused some variation in absorption. It is also possible that the salty burrito contributed to her transient elevation of blood pressure. Her vertigo is only there if she turns certain directions. I do not think this req uires any further evaluation or treatment. She has an appointment with her physician tomorrow at about 11:45 in the morning which she will keep. I think she is appropriate for discharge. I do not think we need to change her medications at this time. Lab Data Attestation: I reviewed the patient's lab results. Labs: Laboratory Results - last 24 hr 01/16/23 01/16/23 19:50 19:50 WBC 5.9 RBC 4.23 Hgb 13.0 Hct 39.6 MCV 93.6 MCH 30.7 MCHC 32.8 RDW Std Deviation 42.7 RDW Coeff of Chapo 12.4 Plt Count 194 MPV 10.2 Immature Gran % (Auto) 0.200 Neut % (Auto) 66.4 Lymph % (Auto) 23.6 [place] % (Auto) 7.5 Eos % (Auto) 1.4 Baso % (Auto) 0.9 Absolute Neuts (auto) 3.9 Absolute Lymphs (auto) 1.38 Nucleated RBC % 0 Sodium 142 Potassium 3.1 L Chloride 107 Carbon Dioxide 29.0 Anion Gap 6 BUN 9 Creatinine 0.76 Estim Creat Clear Calc 77.12 Est GFR (MDRD) Af Amer 99 Est GFR (MDRD) Non-Af 82 BUN/Creatinine Ratio 11.9 Glucose 99 Calcium 9.4 Radiography Diagnostic Testing: Clinical Impression(s) from Imaging Studies Brain CT 01/16/23 19:41 IMPRESSION: Negative head/brain CT without intravenous contrast. Electronically Signed: Sammy Barragan MD at 20:15 EDT , EKG Initial EKG: Comments: My independent interpretation the patient's EKG shows normal sinus rhythm with a right bundle branch block which is not new. Overall rate is 88. Diffuse nonspecific ST and T wave changes likely related to the bundle branch block. [place] interval is normal. QRS duration is slightly long at 122 ms. QTc is slightly long at 486 ms. However, these EKG findings are similar to 13 November 2020. Discharge Plan Triage Chief Complaint: Hypertension ED Provider: Jasper Hurst Dx/Rx/DC Orders Clinical Impression: Elevated blood pressure reading, Intermittent vertigo Instructions: ED High Blood Pressure Hypertension Prescriptions: No Action aspirin [Adult Low Dose Aspirin] 81 mg tablet,delayed release (DR/EC) 81 mg PO Q OTHER DAY Rx Instructions: Alternates plavix and aspirin losartan 25 mg tablet 50 mg PO DAILY atorvastatin 80 mg tablet 80 mg PO QHS Qty: 90 3RF hydrochlorothiazide 25 mg tablet 25 mg PO DAILY Qty: 90 3RF Primary Care Provider: Kaushal Gastelum Referrals: Kaushal Gastelum MD [Primary Care Provider] - 1 Day Disposition Disposition: Home, Self Care
[2023-01-16 20:00] LABS: Absolute Lymphocyte Count 1.38 X10^3/uL (0.83-4.51); Absolute Neutrophil Count 3.9 X10^3/uL (2.0-7.7); Basophil# 0.05 X10^3/uL; Basophil% 0.9 % (0-1); Eosinophil# 0.08 X10^3/uL; Eosinophils% 1.4 % (0-5); Hematocrit 39.6 % (37-47); Lymphocyte # 1.38 X10^3/ul (0.83-4.51); Lymphocyte % 23.6 % (19-41); Mean Corp Hgb Conc 32.8 g/dL (32-36); Mean Corpuscular Hgb 30.7 pg (27.0-32.0); Mean Corpuscular Volume 93.6 fL (81-99); Mean Platelet Vol. 10.2 fl (6.2-12.0); Monocyte# 0.44 X10^3/uL; Monocyte% 7.5 % (0-10); NRBC Flagged by Analyzer 0 % (0-5); Neutrophil # 3.89 X10^3/uL (2.7-7.7); Neutrophil % 66.4 % (47-70); Platelet Count 194 K/mm3 (150-450); RBC Distribution Width CV 12.4 % (11.6-14.6); RBC Distribution Width SD 42.7 fl (35.1-43.9); Red Blood Count 4.23 M/mm3 (4.2-5.4); White Blood Count 5.9 K/mm3 (4.4-11.0)
[2023-01-16 20:16] LABS: Anion Gap 6 (5-15); BUN 9 mg/dL (7-18); BUN/Creat Ratio 11.9 RATIO (10-20); Calcium,Total 9.4 mg/dL (8.5-10.1); Chloride 107 mmol/L (98-107); Creatinine, Serum 0.76 mg/dL (0.55-1.02); EST Glomerular Filtration Rate 82 mL/min (>60); Est Glom Filt Rate - Afr Amer 99 mL/min (>60); Estimated Creatinine Clearance 77.12 ml/min; Glucose 99 mg/dL (74-106); Potassium 3.1 mmol/L (3.5-5.1); Sodium Level 142 mmol/L (136-145)
[2023-01-16 20:35] VITALS: BP 163/88; PULSE 72; RESP 18; O2SAT 98
[2023-01-16 20:44] VITALS: BP 172/89; PULSE 87; RESP 18; O2SAT 100
== END 2023-01-16 20:56 | disposition home or self-care (01) ==
PROVIDERS: Emergency Provider Emergency Medicine; PCP Family Medicine; Visit Provider Emergency Medicine
DX: R42 Dizziness and giddiness (principal); Z87.891 Personal history of nicotine dependence; I25.10 Atherosclerotic heart disease of native coronary artery without angina pectoris; I10 Essential (primary) hypertension; E78.2 Mixed hyperlipidemia; Z79.899 Other long term (current) drug therapy
CPT/HCPCS: 70450; 80048; 85025; 93005; 99282; A4216

== ENCOUNTER → 2023-04-24 | Outpatient (CLI) | payer OTHER, SELFPAY ==
--- NOTE | 2023-04-24 10:51 | BI_ITS ---
MAMMOGRAPHY - BILATERAL SCREENING REASON FOR EXAM: Female, 67 years old. Routine annual screening examination. PERTINENT HISTORY: Non-contributory. TECHNIQUE: Digital bilateral breast jose luis (3D mammographic acquisition) in the CC and MLO projections. 2-D mediolateral oblique (MLO) and craniocaudad (CC) views of both breasts were obtained. CAD: Full Field Digital Mammography with Computer Added Detection was performed. COMPARISON: Comparison is made with prior study dated April 13, 2022 and April 01, 2021. FINDINGS: Breast Composition: There are scattered areas of fibroglandular density. There are no dominant masses or suspicious calcifications. Stable benign-appearing bilateral axillary lymph nodes. No other significant abnormalities are identified. There has been no significant change since the prior study. BI/SCRN MAMM (CAD)W/JOSE LUIS BILAT IMPRESSION: Stable bilateral screening mammogram. Yearly follow-up mammogram recommended. (A) ASSESSMENT CATEGORY: BIRADS Category 2: Benign. A letter regarding these results will be sent to the patient by the facility within 30 days. Approximately 10% of breast cancers are not detected by mammography. A normal mammogram should not delay biopsy of a clinically suspicious abnormality. [id number] Electronically Signed: Jimenez Perera MD at 12:43 EDT ,
== END | disposition home or self-care (01) ==
LOC: OPBI 10:50
PROVIDERS: PCP Family Medicine; Referring Provider Family Medicine; Visit Provider Family Medicine
DX: Z12.31 Encounter for screening mammogram for malignant neoplasm of breast (principal)
CPT/HCPCS: 77063; 77067

== ENCOUNTER → 2023-06-07 | Outpatient (CLI) | payer OTHER, SELFPAY ==
--- NOTE | 2023-06-07 13:35 | CT_ITS ---
STUDY: CT ABDOMEN AND PELVIS WITHOUT CONTRAST REASON FOR EXAM: Female, 67 years old. URINARY STONE-LEFT FLANK PAIN. PRIOR HERNIA ,HYSTER RADIATION DOSAGE (If Supplied By Facility): CTDIvol = ( 7.78 ) mGy, DLP = ( 352.30 ) mGycm TECHNIQUE: Transaxial images were obtained from the dome of the diaphragm to the symphysis pubis without oral contrast, and without intravenous contrast. Sagittal and coronal images were reconstructed. Individualized dose optimization techniques were used for this CT. COMPARISON: None. FINDINGS: The visualized lung bases are unremarkable. The visualized portions of the heart are within normal limits. Normal liver. Normal gallbladder and extrahepatic biliary system. Normal spleen. Normal pancreas. Normal bilateral adrenal glands. Normal right kidney. Punctate calcification seen in the upper and lower pole of the left renal cortex. Normal visualized stomach. Normal small intestine. There are multiple colonic diverticula consistent with diverticulosis. The appendix is visualized and appears normal. There is scattered atherosclerotic calcification of the abdominal aorta, without a demonstrated aneurysm. Normal inferior vena cava. Normal retroperitoneum. Normal urinary bladder. There is absence of the uterus consistent with a prior hysterectomy. There is evidence of prior right inguinal hernia repair with a mesh. There are mild degenerative changes of the visualized lumbar spine. CT/Abdomen/Pelvis without Cont IMPRESSION: No obstructive uropathy is seen at this time. Electronically Signed: Jimenez Perera MD at 15:25 EDT ,
== END | disposition home or self-care (01) ==
LOC: CT 13:33
PROVIDERS: PCP Family Medicine; Referring Provider Family Medicine; Visit Provider Family Medicine
DX: R10.9 Unspecified abdominal pain (principal)
CPT/HCPCS: 74176

== ENCOUNTER → 2023-09-26 | Outpatient (CLI) | payer OTHER, SELFPAY ==
--- OUTSIDE RECORDS SUMMARY | 2023-09-26 06:33 | XMS RPT_ITS | CCD ---
Author Name Unknown Address [id number] [place] [address] Organization [facility] Care Team Providers Care Nail Feeder Name Role Phone Cathryn Borja LPN Unavailable [phone] NANCI Mccann, Fanny Sauceda Unavailable Unavailmelissa Mccann RN, Fanny Sauceda Unavailable Unavailmelissa almazan DeFinis, Harumi Y Unavailable Unavailable Kim Shultz Unavailable Unavailable Amber Pineda LPN Unavailable Unavailable Amber Pineda LPN Unavailable Unavailable Unavailable Primary Care Provider Arsenio Ford MD Primary Care Provider OLE DORADO Attending Unavailable SELF, SELF Referring Unavailable ARSENIO SORIANO Primary Care Unavailmelissa almazan Allergies Allergy Classification Reported Allergen(s) Allergy Type Date of Onset Reaction(s) Facility (7 sources) lisinopril drug allergy 11-25-2014 Cough [facility] Work Phone: (2 sources) Codeine Drug Allergy 06-21-2022 [facility] Medications Current Medications Medication Drug Class(es) Dates Sig (Normalized) Sig (Original) aspirin 81 mg chewable tablet (20 sources) Nonsteroidal Anti-inflammatory Drug Start: 06-21-2022 aspirin 81 MG Chew Tab chewable tablet Indications: Coronary artery disease involving [place] coronary artery of [place] heart without angina pectoris , Essential hypertension, benign , Mixed hyperlipidemia Chew 1 tablet daily. 0 06/21/2022 Active Completed/Discontinued Medications Medication Drug Class(es) Dates Sig (Normalized) Sig (Original) azithromycin 250 mg oral tablet (1 source) Macrolide Antimicrobial Start: 05-09-20 End: 05-14-20 17 ZITHROMAX Z-LORE 250 MG TABS Take 2 pills on day 1 then 1 pill days 2 through 5 AZITHROMYCIN [id number] [facility] clopidogrel 75 mg oral tablet (7 sources) P2Y12 Platelet Inhibitor Start: 11-26-19 15 take 1 tablet by mouth once daily PLAVIX 75 MG TABS One tablet by mouth daily CLOPIDOGREL BISULFATE [id number] Jimy Oconnell MD hydroCHLOROthiazide 12.5 mg oral tablet (9 sources) Thiazide Diuretic Start: 05-25-20 16 take 1 tablet by mouth once daily HYDROCHLOROTHIAZIDE 12.5 MG TABS One tablet by mouth daily HYDROCHLOROTHIAZIDE [id number] Jimy Oconnell MD Problems Active Problems Problem Classification Problem Date Documented Date Episodic/Chronic Acute myocardial infarction (20 [address]) ST elevation (STEMI) myocardial infarction involving other coronary artery of anterior wall; Translations: [Myocardial infarction] Onset: 12-01-2014 Resolved: 05-06-2016 05-06-2016 Chronic Coronary atherosclerosis and other heart disease (20 sources) Atherosclerotic heart disease of [place] coronary artery without angina pectoris; Translations: [Old myocardial infarction] Onset: 11-25-2014 11-25-2014 Chronic Disorders of lipid metabolism (9 sources) Hyperlipidemia; Translations: [Mixed hyperlipidemia] Onset: 11-25-2014 11-25-2014 Chronic Essential hypertension (9 sources) Hypertensive disorder; Translations: [Benign essential hypertension] Onset: 11-25-2014 11-25-2014 Chronic Heart valve disorders (7 sources) Nonrheumatic tricuspid (valve) insufficiency; Translations: [Nonrheumatic tricuspid (valve) insufficiency] Onset: 05-06-2016 05-06-2016 Chronic Past or Other Problems Problem Classification Problem Date Documented Da te Episodic/Chronic Chronic obstructive pulmonary disease and bronchiectasis (1 source) Bronchitis; Translations: [Bronchitis, not specified as acute or chronic] Onset: 05-09-2017 05-09-2017 Episodic Coronary atherosclerosis and other heart disease (7 sources) Coronary angioplasty status; Translations: [Coronary angioplasty status] Onset: 11-25-2014 11-25-2014 Episodic Other aftercare (14 sources) Long-term (current) use of other medications; Translations: [Other ad terminal makeup operator (current) drug therapy] Onset: 11-25-2014 11-25-2014 Episodic Other upper respiratory infections (8 sources) Sinusitis; Translations: [Acute pharyngitis] Onset: 08-19-2016 05-09-2017 Episodic Superficial injury; contusion (7 sources) Contusion of left thumb without damage to nail, initial encounter; Translations: [Contusion of left thumb without damage to nail, initial encounter] Onset: 02-17-2017 02-17-2017 Episodic Results Test Name Value Interpretation Reference Range Facil ity Vital Signs Date Time Vital Sign Value Performing Clinician Irlanda bowmany 06-22-2023 11:36-0500 Body height 177.8 cm [facility] APARTMENT LEASING MANAGER-DIRECTOR STAGE Work Phone: [facility] 06-22-2023 11:36-0500 Body mass index (BMI) [Ratio] 23.17 kg/m2 [facility] APARTMENT LEASING MANAGER-DIRECTOR STAGE Work Phone: [facility] 06-22-2023 11:36-0500 Body weight 73.26 kg [facility] APARTMENT LEASING MANAGER-DIRECTOR STAGE Work Phone: [facility] 06-22-2023 11:36-0500 Diastolic blood pressure 80 mm[Hg] [facility] APARTMENT LEASING MANAGER-DIRECTOR STAGE Work Phone: [facility] 06-22-2023 11:36-0500 Heart rate 67 /min [facility] APARTMENT LEASING MANAGER-DIRECTOR STAGE Work Phone: [facility] 06-22-2023 11:36-0500 SaO2% (BldA) [Mass fraction] 99 % [facility] APARTMENT LEASING MANAGER-DIRECTOR STAGE Work Phone: [facility] 06-22-2023 11:36-0500 Systolic blood pressure 150 mm[Hg] [facility] APARTMENT LEASING MANAGER-DIRECTOR STAGE Work Phone: [facility] 06-21-2022 14:38-0500 Body height 176.5 cm Simone Fritz DO Work Phone: [facility] 06-21-2022 14:38-0500 Body mass index (BMI) [Ratio] 23.65 kg/m2 Simone Fritz DO Work Phone: [facility] 06-21-2022 14:38-0500 Body weight 73.71 kg Simone Fritz DO Work Phone: [facility] 06-21-2022 14:38-0500 Diastolic blood pressure 72 mm[Hg] Simone Fritz DO Work Phone: [facility] 06-21-2022 14:38-0500 Heart rate 65 /min Simone Fritz DO Work Phone: [facility] 06-21-2022 14:38-0500 Systolic blood pressure 122 mm[Hg] Simone Fritz DO Work Phone: [facility] 05-09-2017 10:27-0400 BMI (Body Mass Index) 22.96 kg/m2 Cathryn Reynosotheresa PAZN [facility] Work Phone: 05-09-2017 10:27-0400 Body Temperature 97 [degF] Cathryn Reynosotheresa PAZN [facility] Work Phone: 05-09-2017 10:27-0400 BP Diastolic 84 mm[Hg] Cathryn Reynosotheresa YARD ASSISTANT [facility] Work Phone: 05-09-2017 10:27-0400 BP Systolic 122 mm[Hg] Cathryn eRynosotheresa YARD ASSISTANT [facility] Work Phone: 05-09-2017 10:27-0400 Height 177.8 cm Cathryn Reynosotheresa YARD ASSISTANT [facility] Work Phone: 05-09-2017 10:27-0400 Pulse (Heart Rate) 87 /min Cathryn Reynosotheresa PAZN [facility] Work Phone: 05-09-2017 10:27-0400 Respiratory Rate 16 /min Catrhyn Reynosotheresa PAZN [facility] Work Phone: 05-09-2017 10:27-0400 Weight 72.58 kg Cathryn Borja [facility] Work Phone: 04-13-2017 14:10-0400 BMI (Body Mass Index) 22.96 kg/m2 [facility] Work Phone: 04-13-2017 14:10-0400 BP Diastolic 62 mm[Hg] [facility] Work Phone: 04-13-2017 14:10-0400 BP Systolic 126 mm[Hg] [facility] Work Phone: 04-13-2017 14:10-0400 Height 177.8 cm [facility] Work Phone: 04-13-2017 14:10-0400 Pulse (Heart Rate) 68 /min [facility] Work Phone: 04-13-2017 14:10-0400 Respiratory Rate 18 /min [facility] Work Phone: 04-13-2017 14:10-0400 Weight 72.58 kg [facility] Work Phone: 02-17-2017 11:30-0400 BMI (Body Mass Index) 23.01 kg/m2 Amber Pineda [facility] Work Phone: 02-17-2017 11:30-0400 Body Temperature 97.7 [degF] Amber Pineda [facility] Work Phone: 02-17-2017 11:30-0400 BP Diastolic 70 mm[Hg] Amber Pineda LPN [facility] Work Phone: 02-17-2017 11:30-0400 BP Systolic 130 mm[Hg] Amebr Pineda LPN [facility] Work Phone: 02-17-2017 11:30-0400 Height 177.8 cm Amber Pineda LPN [facility] Work Phone: 02-17-2017 11:30-0400 Pulse (Heart Rate) 70 /min Amber Pineda [facility] Work Phone: 02-17-2017 11:30-0400 Weight 72.76 kg Amber Pineda LPN [facility] Work Phone: 10-03-2016 12:46-0500 BSA (Body Surface Area) 1.89 m2 Amber Pineda LPN [facility] Work Phone: 10-03-2016 12:46-0500 Respiratory Rate 18 /min Amber Pineda LPN [facility] Work Phone: 08-19-2016 13:36-0500 Height 177.8 cm Amber Pineda LPN [facility] Work Phone: 08-19-2016 13:36-0500 Weight 72.45 kg Amber Pineda LPN [facility] Work Phone: Encounters Encounter Date Encounter Type Care Provider Facility Start: 06-22-2023 ambulatory [facility] Facility:[facility] Start: 06-22-2023 End: 06-22-2023 Office outpatient visit [address] [facility] [address] APARTMENT LEASING MANAGER-DIRECTOR STAGE Work Phone: [facility] [place] Procedures Date Procedure Procedure Detail Performing Clinician Start: 04-13-2017 End: 04-18-2017 *Hepatic Function Panel Jimy Oconnell MD Work Phone: Start: 04-13-2017 End: 04-13-2017 МАРИЯ Oconnell MD Work Phone: Start: 04-13-2017 End: 04-13-2017 Follow Up Appt 6 months Jimy Oconnell MD Work Phone: Start: 04-13-2017 End: 04-18-2017 Lipid panel [AGGREGATE] Jimy Oconnell MD Work Phone: Start: 10-03-2016 End: 10-03-2016 МАРИЯ Oconnell MD Work Phone: Start: 10-03-2016 End: 10-03-2016 Follow Up Appt 6 months Jimy Oconnell MD Work Phone: Start: 08-19-2016 End: 08-19-2016 Rapid strep test [facility] Work Phone: Start: 08-19-2016 End: 08-19-2016 Strep a assay w/optic [facility] PA Work Phone: Start: 06-08-2016 End: 06-08-2016 *BMP Ling Jeffries PA-C Work Phone: Start: 06-08-2016 End: 06-08-2016 Follow Up BP Check Ling Jeffries PA-C Work Phone: Start: 05-06-2016 End: 05-06-2016 МАРИЯ Oconnell MD Work Phone: Start: 05-06-2016 End: 05-06-2016 Follow Up Appt 6 months Jimy Oconnell MD Work Phone: Start: 05-06-2016 End: 05-06-2016 Follow Up BP Check Jimy Oconnell MD Work Phone: Start: 04-25-2016 End: 06-09-2016 *Hepatic Function Panel Jimy Oconnell MD Work Phone: Start: 04-25-2016 End: 06-09-2016 Lipid panel [AGGREGATE] Jimy Oconnell MD Work Phone: Start: 10-06-2015 End: 10-23-2015 *Hepatic Function Panel Jimy Oconnell MD Work Phone: Start: 10-06-2015 End: 10-06-2015 ESTIVENN Jimy Oconnell MD Work Phone: Start: 10-06-2015 End: 10-06-2015 Follow Up Appt 1 year Sohail Combs Work Phone: Start: 10-06-2015 End: 10-23-2015 Lipid panel [AGGREGATE] Jimy Oconnell MD Work Phone: Start: 06-12-2015 End: 10-06-2015 *Hepatic Function Panel Jimy Oconnell MD Work Phone: Start: 06-12-2015 End: 10-06-2015 Lipid panel [AGGREGATE] Jimy Oconnell MD Work Phone: Start: 03-31-2015 End: 03-31-2015 ESTVIENN Jimy Oconnell MD Work Phone: Start: 03-31-2015 End: 04-08-2015 Echocardiography Jimy Oconnell MD Work Phone: Start: 03-31-2015 End: 03-31-2015 Follow Up Appt 6 months Jimy Oconnell MD Work Phone: Start: 03-31-2015 End: 04-28-2015 Thyroid stimulating hormone (TSH) Jimy Oconnell MD Work Phone: Start: 03-31-2015 End: 04-28-2015 Thyroxine (T4) Jimy Oconnell MD Work Phone: Start: 12-11-2014 End: 12-11-2014 *Hepatic Function Panel Jimy Oconnell MD Work Phone: Start: 12-11-2014 End: 01-29-2015 Lipid panel [AGGREGATE] Jimy Oconnell MD Work Phone: Start: 12-11-2014 End: 01-29-2015 Thyroxine (T4) Jimy Oconnell MD Work Phone: Start: 12-01-2014 End: 12-01-2014 Cardiac Rehab Jimy Oconnell MD Work Phone: Start: 12-01-2014 End: 12-01-2014 ESTIVENN Jimy Oconnell MD Work Phone: Start: 12-01-2014 End: 03-25-2015 Echocardiography Jimy Oconnell MD Work Phone: Start: 12-01-2014 End: 12-01-2014 Electrocardiogram, complete Jimy christine MD Work Phone: Start: 12-01-2014 End: 12-01-2014 Follow Up Appt 4 months Jimy Oconnell MD Work Phone: Start: 11-25-2014 End: 12-01-2014 Cardiac Rehab Jimy Oconnell MD Work Phone: Plan of Treatment Date Care Activity Detail Author Start: 05-07-2028 Tetanus vaccination TETANUS [facility] Start: 05-29-2024 End: 05-29-2024 Patient encounter procedure 05/29/2024 2:00 PM EDT Office Visit [facility] [place] [address] [phone] Ole Dorado APRN-CNP [address] [phone] [facility] [place] Start: 06-27-2023 End: 06-27-2023 Patient encounter procedure 06/27/2023 Office Visit Cardiovascular Medicine Simone Fritz DO [address] [phone] [facility] [place] Start: 10-30-2017 End: 10-30-2017 Appointment Appointment [facility] Work Phone: Start: 10-16-2017 End: 04-21-2017 *Hepatic Function Panel *Hepatic Function Panel [facility] Work Phone: Start: 10-16-2017 End: 04-21-2017 Lipid panel [AGGREGATE] *Lipid Profile CC PCP [facility] Work Phone: Start: 04-13-2017 End: 04-13-2017 Appointment Appointment [facility] Work Phone: Start: 04-13-2017 End: 04-18-2017 *Hepatic Function Panel *Hepatic Function Panel [facility] Work Phone: Start: 04-13-2017 End: 04-13-2017 МАРИЯ HSIEH [facility] Work Phone: Start: 04-13-2017 End: 04-13-2017 Follow Up Appt 6 months Follow Up Appt 6 months [facility] Work Phone: Start: 04-13-2017 End: 04-18-2017 Lipid panel [AGGREGATE] *Lipid Profile CC PCP [facility] Work Phone: Start: 04-06-2017 End: 04-06-2017 Appointment Appointment [facility] Work Phone: Start: 02-17-2017 End: 02-17-2017 Appointment Appointment [facility] Work Phone: Start: 10-23-2016 End: 06-09-2016 *Hepatic Function Panel *Hepatic Function Panel [facility] Work Phone: Start: 10-23-2016 End: 06-09-2016 Lipid panel [AGGREGATE] *Lipid Profile CC PCP [facility] Work Phone: Start: 10-03-2016 End: 10-03-2016 МАРИЯ HSIEH [facility] Work Phone: Start: 10-03-2016 End: 10-03-2016 Follow Up Appt 6 months Follow Up Appt 6 months [facility] Work Phone: Start: 06-08-2016 End: 06-08-2016 *BMP *BMP [facility] Work Phone: Start: 06-08-2016 End: 06-08-2016 Follow Up BP Check Follow Up BP Check [facility] Work Phone: Start: 05-06-2016 End: 05-06-2016 МАРИЯ HSIEH [facility] Work Phone: Start: 05-06-2016 End: 05-06-2016 Follow Up Appt 6 months Follow Up Appt 6 months [facility] Work Phone: Start: 05-06-2016 End: 05-06-2016 Follow Up BP Check Follow Up BP Check [facility] Work Phone: Start: 04-25-2016 End: 06-09-2016 *Hepatic Function Panel *Hepatic Function Panel [facility] Work Phone: Start: 04-25-2016 End: 06-09-2016 Lipid panel [AGGREGATE] *Lipid Profile CC PCP [facility] Work Phone: Start: 10-06-2015 End: 10-23-2015 *Hepatic Function Panel *Hepatic Function Panel [facility] Work Phone: Start: 10-06-2015 End: 10-06-2015 DJN ESTIVENN [facility] Work Phone: Start: 10-06-2015 End: 10-06-2015 Follow Up Appt 1 year Follow Up Appt 1 year [facility] Work Phone: Start: 10-06-2015 End: 10-23-2015 Lipid panel [AGGREGATE] *Lipid Profile CC PCP [facility] Work Phone: Start: 06-12-2015 End: 10-06-2015 *Hepatic Function Panel *Hepatic Function Panel [facility] Work Phone: Start: 06-12-2015 End: 10-06-2015 Lipid panel [AGGREGATE] *Lipid Profile CC PCP [facility] Work Phone: Start: 03-31-2015 End: 03-31-2015 МАРИЯ DJN [facility] Work Phone: Start: 03-31-2015 End: 03-31-2015 Echocardiography Echocardiogram (complete) [facility] Work Phone: Start: 03-31-2015 End: 03-31-2015 Follow Up Appt 6 months Follow Up Appt 6 months [facility] Work Phone: Start: 03-31-2015 End: 04-28-2015 Thyroid stimulating hormone (TSH) *TSH [facility] Work Phone: Start: 03-31-2015 End: 04-28-2015 Thyroxine (T4) *T4 (Total) [facility] Work Phone: Start: 12-15-2014 End: 12-11-2014 *Hepatic Function Panel *Hepatic Function Panel [facility] Work Phone: Start: 12-15-2014 End: 12-02-2014 Lipid panel [AGGREGATE] *Lipid Profile CC PCP [facility] Work Phone: Start: 12-01-2014 End: 12-01-2014 Cardiac Rehab Cardiac Rehab [facility] Work Phone: Start: 12-01-2014 End: 12-01-2014 DJN DJN [facility] Work Phone: Start: 12-01-2014 End: 12-01-2014 Echocardiography Echocardiogram (complete) [facility] Work Phone: Start: 12-01-2014 End: 12-01-2014 Electrocardiogram, complete EKG (In office) [facility] Work Phone: Start: 12-01-2014 End: 12-01-2014 Follow Up Appt 4 months Follow Up Appt 4 months [facility] Work Phone: Start: 11-25-2014 End: 12-01-2014 Cardiac Rehab Cardiac Rehab [facility] Work Phone: Start: 2002 Screening for malignant neoplasm of colon COLORECTAL CANCER SCREENING DISCUSSION [facility] Start: 1997 Lipid panel LIPID SCREENING [facility] Start: 1997 Screening for malignant neoplasm of breast MAMMOGRAM SCREENING DISCUSSION [facility] Start: 1978 Screening for malignant neoplasm of cervix CERVICAL CANCER SCREENING DISCUSSION [facility] Start: 1972 HIV screening HIV SCREENING DISCUSSION [facility] Start: 04-07-1958 COVID-19 VACCINE (#1) COVID-19 VACCINE (#1) [facility] Start: 1957 Hepatitis C screening HEPATITIS C VIRUS SCREENING [facility] Start: 1957 Potassium [Moles/volume] in Serum or Plasma POTASSIUM [facility] Start: 1957 Screening for osteoporosis DEXA SCAN DISCUSSION [facility] Ambulatory ECG [place] ECG (OFFICE R EAD ONLY) [place] - OFFICE PERFORMED Routine Coronary artery disease involving [place] coronary artery of [place] heart without angina pectoris Essential hypertension, benign Mixed hyperlipidemia Ordered: 06/21/2022 [facility] Payers Date Payer Category Payer Private Health Insurance [employer] [id number] 2023-Present [address] JIM RAMIREZ [id number] 2023 Private Health Insurance [id number] 2019 Unknown [facility] [employer] [id number] 2019-Present [address] [address] [place] [address] [id number] 2019 Unknown [id number] 1957 Unknown [id number] 1957 Unknown [id number] 1957 Unknown [id number] 1957 Unknown [id number] Social History Date Type Detail Facility Start: 06-21-2022 Tobacco smoking stat [facility] Never smoked tobacco [facility] Start: 06-21-2022 Tobacco use and exposure Smokeless tobacco non-user [facility] Start: 06-21-2022 End: 06-22-2023 Alcohol intake Current drinker of alcohol (finding) [facility] Start: 06-21-2022 Alcohol Comment [address] [facility] Start: 1955 Sex Assigned At Not on file O JENKINS [facility] Start: 06-22-2023 History of Social function [facility] Start: 06-22-2023 Tobacco use panel [facility] History of Present illness Narrative 06-22-2023 Ole Dorado, LISSETTE-YANETH - 06/22/2023 12:00 PM EST Note Date & Type Note Facility 06-22-2023 History of Present illness Narrative , is a 67 y.o. female who presented 06/22/2023 at the [facility] [place]. Mary has a medical history of CAD/STEMI 11/2014 s/p MLAD PCI RENY, HTN, HLD who presented for a follow up. Patient states she is doing well. She is active w/o any cardiac symptoms. Denies chest pain, shortness of breath, palpitations, syncope, edema. Review of Systems All other systems reviewed and are negative. Physical Exam Vitals and nursing note reviewed. Constitutional: Appearance: Normal appearance. Cardiovascular: Rate and Rhythm: Normal rate and regular rhythm. Pulses: Normal pulses. Heart sounds: Normal heart sounds. Pulmonary: Effort: Pulmonary effort is normal. Breath sounds: Normal breath sounds. Skin: General: Skin is warm and dry. Neurological: General: No focal deficit present. Mental Status: Alert and oriented to person, place, and time. Psychiatric: Mood and Affect: Mood normal. Vitals: 06/22/23 1136 BP: 150/80 Pulse: 67 SpO2: 99% Weight: 73.3 kg (161 lb 8 oz) Height: 1.778 m (5' 10 ) Wt Readings from Last 3 Encounters: 06/22/23 73.3 kg (161 lb 8 oz) 06/21/22 73.7 kg (162 lb 8 oz) Body mass index is 23.17 kg/m . Current Outpatient Medications Medication Sig aspirin 81 MG Chew Tab chewable tablet Chew 1 tablet daily. atorvastatin 80 MG tablet Take 1 tablet by mouth at bedtime. hydroCHLOROthiazide 25 MG tablet Take 25 mg by mouth daily. Losartan 50 MG tablet Take 1 tablet by mouth daily. Metoprolol 25 MG tab regular release Take 1 tablet by mouth 2 times daily. Multiple Vitamins-Minerals (WOMENS MULTI PO) Take by mouth. tiZANidine 4 MG tablet Take 4 mg by mouth every 6 hours as needed for Muscle spasms. Vitamin D-Vitamin K (D3 + K2 DOTS PO) Take by mouth. Takes QOD Review Of Tests and Records: ELVIRA 2019 no evidence of ischemia, METS 10.1 TTE 2019 normal biV function, impaired relaxation, no significant valve disease [facility] 11/2014 s/p PCI RENY x1 mLAD, moderate disease distally w/o intervention ASSESSMENT/PLAN: * CAD - S/p STEMI PCI 2014 - 2019 no evidence of ischemia, METS 10.1 - TTE 2018 normal biV function, impaired relaxation, no significant valve disease - [facility] 11/2014 s/p PCI RENY x1 mLAD, moderate disease distally w/o intervention - Asympotmatic - Continue Metoprolol, Losartan, Atorvastatin, ASA, Hydrochlorothiazide * Essential hypertension - Blood pressure is suboptimal today at 150/80. Likely d/t situation. Patient reports her blood pressure is well controlled at home. - Continue current regimen * Hyperlipidemia - Continue high dose Atorvastatin ASA Follow up with Dr. Fritz in one year documented in this encounter [facility] History of Present illness Narrative 06-21-2022 Teresa Akers MA - 06/21/2022 2:30 PM ESTSimone Fritz DO - 06/21/2022 2:30 PM EST Note Date & Type Note Facility 06-21-2022 History of Present illness Narrative 12 Lead EKG performed per provider's order, per policy, and given to Dr. Fritz for interpretation. HISTORY It was my privilege to see Ms. Mary Victor at [facility] [place] on 06/21/2022 for her CAD. She is a 66 y.o. female hx CAD/STEMI 11/2014 s/p mLAD PCI RENY, HTN, HLP, presenting here to re-establish with cardiology. She denies any CP, SOB, orthopnea/PND, worsening LE edema, palpitations, syncope. 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 She reports compliance to her Lipitor/[place]arta/HCTZ, however has not taken her ASA for several years. She originally had a TTE post STEMI showing mild anteroapical WMA ~50% which reportedly resolved shortly after F/U TTE. She has since had multiple TTEs and stress echos (last stress echo 2019 performing 10.1 METs) that was unremarkable. Denies smoking. Last saw cardiology 10/2021 locally with no major issues at that time. ROS Pertinent negatives include: She denies angina, chest pain, SOB, SPARKS, orthopnea, palpitations, syncope, near syncope, or LE edema. She also denies fever, chills, n/v, and the remainder of her 12-point review of systems is otherwise negative. PAST MEDICAL HISTORY Past Medical History: Diagnosis Date CT (myocardial infarction) Migraine PAST SOCIAL HISTORY Social History Socioeconomic History Marital status: Single Spouse name: Not on file Number of children: Not on file Years of education: Not on file Highest education level: Not on file Occupational History Not on file Tobacco Use Smoking status: Never Smokeless tobacco: Never Vaping Use Vaping Use: Never used Substance and Sexual Activity Alcohol use: Yes Comment: 1 Drug use: Never Sexual activity: Not on file Other Topics Concern Not on file Social History Narrative Not on file Social Determinants of Health Financial Resource Strain: Not on file Food Insecurity: Not on file Transportation Needs: Not on file Physical Activity: Not on file Stress: Not on file Social Connections: Not on file Intimate Partner Violence: Not on file Housing Stability: Not on file MEDICATIONS AND ALLERGIES Current Outpatient Medications Medication Sig losartan 50 MG tablet Take 1 tablet by mouth daily. aspirin 81 MG Chew Tab chewable tablet Chew 1 tablet daily. atorvastatin 80 MG tablet Take 80 mg by mouth at bedtime. hydroCHLOROthiazide 25 MG tablet Take 25 mg by mouth daily. Multiple Vitamins-Minerals (WOMENS MULTI PO) Take by mouth. tiZANidine 4 MG tablet Take 4 mg by mouth every 6 hours as needed for Muscle spasms. Vitamin D-Vitamin K (D3 + K2 DOTS PO) Take by mouth. Takes QOD Allergies Allergen Reactions Codeine PHYSICAL EXAM BP 122/72 (BP Location: Left arm, BP Position: Sitting) Pulse 65 Ht 1.765 m (5' 9.5 ) Wt 73.7 kg (162 lb 8 oz) BMI 23.65 kg/m Smoking Status Never Wt Readings from Last 3 Encounters: 06/21/22 73.7 kg (162 lb 8 oz) Gen: Alert, Awake, Oriented x 3, in NAD Eyes: PERRLA, EOMI, no icterus ENT: MMM, trachea midline Resp: lungs are clear to auscultation bilaterally, with normal respiratory effort Cardio: RRR, normal S1, S2, no M/R/G. No CURLY. GI: Soft/Nontender/Non-distended, normoactive BS MS: No joint effusions or erythema: Skin: No jaundice or rash Neuro: auto radiator specialist grossly intact. Strength grossly equal in muscle groups of the bilateral UEs and LEs. Psych: appropriate affect and cognition LABS AND TEST RESULTS No results found for: CHOLESTEROL, TRIG, HDL, LDLCALC No results found for: ALT, GLUCOSE, HGBA1C, TSH No results found for: SODIUM, POTASSIUM, CHLORIDE, CO2, BUN, CREATSERUM, GLUCOSE Reviewed all testing and notes from 2014 to 10/2021 [facility] 11/2014 - s/p PCI RENY x 1 mLAD; moderate disease distally without intervention. TTE 2018 - normal biV function, impaired relaxation, no significant valve disease ELVIRA 2019 - no evidence of ischemia, 10.1 METs ASSESSMENT AND PLAN In summary, Ms. Mary Victor is a 66 y.o. female with hx CAD/STEMI 11/2014 s/p mLAD PCI RENY, HTN, HLP, presenting here to re-establish with cardiology. 1. CAD/STEMI - s/p PCI 2014. Recommend she restart ASA 81 mg daily. Will also consolidate some of her medications. Given no angina, OK to stop Lopressor. Reviewed 7 years worth of testing and notes that patient brought with her as described above. Reviewed [facility] film of her mLAD post-PCI that appears only mild-moderately stenosed distally. Would not recommend further ischemic eval for this given multiple stress test that were unremarkable with no Sx. 2. HTN - stable. Will try to consolidate Losartan to daily regimen. Recommend continued BP diary; if BP elevated, could increase Losartan dosing as needed. 3. HLP - LDL at goal on lipid panel 10/2021 60. I appreciate the opportunity to share in the care of this fine individual. I will plan to see her back in 1 year. Should any cardiovascular questions or concerns arise in the interim, please do not hesitate to contact me. Respectfully yours, Simone Fritz DO, [facility] [employer] Operator of Clinical Internal Medicine [facility] Note Date & Type Note [facility] Note Date & Type Note Facility documented in this encounter [facility] Summary Purpose Family History No Family History Records FoundNo Family History Records Found Advance Directives No Advanced Directives Records FoundNo Advanced Directives Records Found Additional Source Comments INFORMATION SOURCE (unrecogn ized section and content) DATE CREATED AUTHOR AUTHOR'S ORGANIZ ATION 06/24/2023 [facility] Reason for Visit (unrecogniz ed section and content) Reason Comments Follow-up 1 yr visit, pt state s she is feeling well with no real issues, pt states she was having some issues with vertigo in January and got some paperwork from a doctor there and would like you to read over it Care Teams (unrecognized sec tion and content) FOR RECORDS PERTAINING TO PATIENTS WHO ARE OR HAVE BEEN ENROLLED IN A CHEMICAL DEPENDENCY/SUBSTANCEABUSE PROGRAM, SOME INFORMATION MAY BE OMITTED. This clinical summary was aggregated from multiple sources. Caution should be exercised in using it in the provision of clinical care. This summary normalizes information from multiple sources, and as a consequence, information in this document may materially change the coding, format and clinical context of patient data. In addition, data may be omitted in some cases. CLINICAL DECISIONS SHOULD BE BASED ON THE PRIMARY CLINICAL RECORDS. [employer] provides no warranty or guarantee of the accuracy or completeness of information in this document.
--- NOTE | 2023-09-27 13:15 | STRESSREP ---
Stress Test Report Date: 09/26/2023 Procedure: Exercise tolerance test/imaging study Indications: Preoperative evaluation Consent: Per the patient Procedure: The patient exercised on a Bradley protocol for 7 minutes and 30 seconds achieving a peak heart rate of 148 bpm (95% predicted maximal heart rate) with a peak blood pressure 200/78 mmHg and a peak MET capacity of 10.1 METs. The baseline ECG demonstrated sinus rhythm, right bundle branch block, nonspecific ST-T changes. The peak exercise ECG demonstrated sinus tachycardia with about 1 mm horizontal to downsloping ST depressions in leads V3 and V4. Upsloping ST depressions noted in inferior leads and also V5 and V6. EKG during recovery revealed return of ST segments to baseline. There were 2 episodes of 3 beat runs of nonsustained V. tach and an 8 beat run of nonsustained V. tach in the recovery period. [There were no cardiac dysrhythmias pretest, during exercise, or recovery]. The functional capacity was considered normal for age. There was [no complaint of chest discomfort during exercise or recovery]. The examination was discontinued secondary to achieving target heart rate. Impression: 1. Technically adequate (percent predicted maximal heart rate greater than 85%) exercise tolerance test 2. Stress test is positive for exercise-induced EKG changes of ischemia and nonsustained V. tach in the recovery phase. 3. The test test is negative for exercise-induced chest pain 4. Functional capacity is normal for age 5. Nuclear images pending Myocardial perfusion imaging study: Technique: The patient was injected with 11.3 mCi of technetium 99m Cardiolite and subsequently rest SPECT Cardiolite nuclear imaging was obtained in the horizontal long, vertical long, and short axis views. The patient exercised on a Bradley protocol. Please see above for details. The patient was injected with 33.1 mCi of technetium 99m Cardiolite and subsequently stress SPECT Cardiolite nuclear imaging was obtained in the horizontal long, vertical long, and short axis views. A gated Cardiolite study at peak stress was obtained. Interpretation: Rest and stress SPECT Cardiolite nuclear imaging status post realignment, normalization, and attenuation correction, demonstrates overall normal myocardial radioisotope uptake. The gated Cardiolite study demonstrates no significant regional wall motion abnormalities. The reported LVEF is greater than 70%. Impression: 1. There is no evidence of significant ischemia or infarction. 2. The gated Cardiolite study reports an LVEF of greater than 70%. This note was generated with [email or web address] software. It may contain incorrect words, spelling, and punctuation that were not noted in checking the note before signing.
== END | disposition home or self-care (01) ==
LOC: CVS 06:31
PROVIDERS: PCP Family Medicine; Referring Provider Physician Assistant Medical; Visit Provider Physician Assistant Medical
DX: Z01.810 Encounter for preprocedural cardiovascular examination (principal); R94.31 Abnormal electrocardiogram [ECG] [EKG]; I25.10 Atherosclerotic heart disease of native coronary artery without angina pectoris; I25.2 Old myocardial infarction; Z95.5 Presence of coronary angioplasty implant and graft
CPT/HCPCS: 78452; 93017; A9500; A4216

== ENCOUNTER 2023-10-10 08:05 | Day surgery (SDC) | payer OTHER, SELFPAY ==
--- NOTE | 2023-10-03 12:18 | RAD_ITS ---
STUDY: X-RAY CHEST REASON FOR EXAM: Female, 67 years old. Abn EKG TECHNIQUE: PA and lateral views of the chest. COMPARISON: Comparison is made with prior study dated November 13, 2020. FINDINGS: Hyperinflation. The lungs are clear. There is no demonstrated pleural abnormality. Normal size heart. Normal mediastinum and isidro. Normal visualized pulmonary arteries. Normal visualized aortic arch and descending thoracic aorta. Normal visualized thoracic spine. Normal visualized ribs, clavicles, and shoulders. There is no demonstrated abnormality of the visualized soft tissue structures of the upper abdomen. RAD/Chest PA and Lateral IMPRESSION: Hyperinflation. The lungs are clear. Electronically Signed: Jimenez Perera MD at 15:39 EST ,
[2023-10-03 12:31] LABS: Absolute Lymphocyte Count 1.35 X10^3/uL (0.83-4.51); Absolute Neutrophil Count 2.8 X10^3/uL (2.0-7.7); Basophil# 0.06 X10^3/uL; Basophil% 1.3 % (0-1); Eosinophil# 0.09 X10^3/uL; Eosinophils% 1.9 % (0-5); Hematocrit 40.2 % (37-47); Hemoglobin 13.4 g/dL (12.0-15.0); Lymphocyte # 1.35 X10^3/ul (0.83-4.51); Lymphocyte % 29.1 % (19-41); Mean Corp Hgb Conc 33.3 g/dL (32-36); Mean Corpuscular Hgb 31.2 pg (27.0-32.0); Mean Corpuscular Volume 93.5 fL (81-99); Mean Platelet Vol. 10.3 fl (6.2-12.0); Monocyte# 0.37 X10^3/uL; NRBC Flagged by Analyzer 0 % (0-5); Neutrophil # 2.77 X10^3/uL (2.7-7.7); Neutrophil % 59.7 % (47-70); Platelet Count 201 K/mm3 (150-450); RBC Distribution Width CV 12.5 % (11.6-14.6); RBC Distribution Width SD 43.1 fl (35.1-43.9); White Blood Count 4.6 K/mm3 (4.4-11.0)
[2023-10-03 12:42] LABS: Partial Thromboplast Time 29.3 Seconds (24.1-36.2)
[2023-10-03 12:45] LABS: Anion Gap 4 (5-15); BUN 17 mg/dL (7-18); BUN/Creat Ratio 21.5 RATIO (10-20); Calcium,Total 9.3 mg/dL (8.5-10.1); Chloride 107 mmol/L (98-107); Creatinine, Serum 0.79 mg/dL (0.55-1.02); EST Glomerular Filtration Rate 78 mL/min (>60); Est Glom Filt Rate - Afr Amer 94 mL/min (>60); Glucose 99 mg/dL (74-106); Potassium 4.2 mmol/L (3.5-5.1); Sodium Level 141 mmol/L (136-145)
[2023-10-09 11:04] VITALS: BMI 23.2
--- OUTSIDE RECORDS SUMMARY | 2023-10-10 08:26 | XMS RPT_ITS | CCD ---
Author Name Unknown Address [address] [place] [address] Organization [facility] Care Team Providers Care Cardiac Catheterization Technician Name Role Phone Cathryn Borja LPN Unavailable [phone] NANCI Mccann, Fanny Sauceda Unavailable Unavailmelissa [...] (7 sources) lisinopril drug allergy 11-25-2014 Cough [facility] Work Phone: (2 sources) Codeine Drug Allergy 06-21-[address] [facility] Medications Current Medications Medication Drug Class(es) Dates Sig (Normalized) Sig (Original) aspirin 81 mg chewable tablet (20 sources) Nonsteroidal Anti-inflammatory Drug Start: 06-21-2022 aspirin 81 MG Chew Tab chewable tablet Indications: Coronary artery disease involving [place] coronary artery of [place] heart without angina pectoris , Essential hypertension, benign , Mixed hyperlipidemia Chew 1 tablet daily. 0 06/21/2022 Active Completed/Discontinued Medications Medication Drug Class(es) Dates Sig (Normalized) Sig (Original) azithromycin 250 mg oral tablet (1 source) Macrolide Antimicrobial Start: 05-09-20 17 End: 05-14-20 17 ZITHROMAX Z-LORE 250 MG TABS Take 2 pills on day 1 then 1 pill days 2 through 5 AZITHROMYCIN [id number] Best ALARCON clopidogrel 75 mg oral tablet (7 sources) P2Y12 Platelet Inhibitor Start: 11-26-19 15 take 1 tablet by mouth once daily PLAVIX 75 MG TABS One tablet by mouth daily CLOPIDOGREL BISULFATE [id number] Jimy Oconnell MD hydroCHLOROthiazide 12.5 mg oral tablet (9 sources) Thiazide Diuretic Start: 05-25-20 16 take 1 tablet by mouth once daily HYDROCHLOROTHIAZIDE 12.5 MG TABS One tablet by mouth daily HYDROCHLOROTHIAZIDE [id number] Jimy Oconnell MD Problems Active Problems Problem Classification Problem Date Documented Date Episodic/Chronic Acute myocardial infarction (20 sources) ST elevation (STEMI) myocardial infarction involving other coronary artery of anterior wall; Translations: [Myocardial infarction] Onset: 12-01-2014 Resolved: 05-06-2016 05-06-2016 Chronic Coronary atherosclerosis and other heart disease (20 sources) Atherosclerotic heart disease of [place] coronary artery without angina pectoris; Translations: [Old [...] (current) use of other medications; Translations: [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 06-22-2023 11:36-0500 Body mass index (BMI) [Ratio] 23.17 kg/m2 [facility] INFIRMARY ATTENDANT-PERFORMANCE INSTRUCTOR Work Phone: [facility] 06-22-2023 11:36-0500 Body weight 73.26 kg [facility] INFIRMARY ATTENDANT-PERFORMANCE INSTRUCTOR Work Phone: [facility] 06-22-2023 11:36-0500 Diastolic blood pressure 80 mm[Hg] [facility] INFIRMARY ATTENDANT-PERFORMANCE INSTRUCTOR Work Phone: [facility] 06-22-2023 11:36-0500 Heart rate 67 /min [facility] INFIRMARY ATTENDANT-PERFORMANCE INSTRUCTOR Work Phone: [facility] 06-22-2023 11:36-0500 SaO2% (BldA) [Mass fraction] 99 % [facility] INFIRMARY ATTENDANT-PERFORMANCE INSTRUCTOR Work Phone: [facility] 06-22-2023 11:36-0500 Systolic blood pressure 150 mm[Hg] [facility] INFIRMARY ATTENDANT-PERFORMANCE INSTRUCTOR Work Phone: [facility] 06-21-2022 14:38-0500 Body height 176.5 cm Simone Fritz DO Work Phone: [facility] 06-21-2022 14:38-0500 Body mass index (BMI) [Ratio] 23.65 kg/m2 Simone Fritz DO Work Phone: [facility] 06-21-2022 14:38-0500 Body weight 73.71 kg Simone Fritz DO Work Phone: [facility] 06-21-2022 14:38-0500 Diastolic blood pressure 72 mm[Hg] Simone Fritz DO Work Phone: [facility] 06-21-2022 14:38-0500 Heart rate 65 /min Simone Fritz DO Work Phone: [facility] 06-21-2022 14:38-0500 Systolic blood pressure 122 mm[Hg] Simone Fritz DO Work Phone: [facility] 05-09-2017 10:27-0400 BMI (Body Mass Index) 22.96 kg/m2 Cathryn Reynosotheresa PAZN [facility] Work Phone: 05-09-2017 10:27-0400 Body Temperature 97 [degF] Cathryn Reynosotheresa PAZN [facility] Work Phone: 05-09-2017 10:27-0400 BP Diastolic 84 mm[Hg] Cathryn Reynosotheresa ADMINISTRATION INTERN [facility] Work Phone: 05-09-2017 10:27-0400 BP Systolic 122 mm[Hg] Cathryn Reynosotheresa ADMINISTRATION INTERN [facility] Work Phone: 05-09-2017 10:27-0400 Height 177.8 cm Cathryn Reynosotheresa ADMINISTRATION INTERN [facility] Work Phone: 05-09-2017 10:27-0400 Pulse (Heart Rate) 87 /min Cathryn Reynosotheresa PAZN [facility] Work Phone: 05-09-2017 10:27-0400 Respiratory Rate 16 /min Cathryn Reynosotheresa PAZN [facility] Work Phone: 05-09-2017 10:27-0400 Weight 72.58 kg Cathryn Borja [facility] Work Phone: 04-13-2017 14:10-0400 BMI [...] (Body Mass Index) 23.01 kg/m2 Amber Pineda [facility] Work Phone: 02-17-2017 11:30-0400 Body Temperature 97.7 [degF] Amber [facility] Work Phone: 02-17-2017 11:30-0400 BP Diastolic 70 mm[Hg] Amber Pineda LPN [facility] Work Phone: 02-17-2017 11:30-0400 BP Systolic 130 mm[Hg] Amber Pineda LPN [facility] Work Phone: 02-17-2017 11:30-0400 Height 177.8 cm Amber Pineda LPN [facility] Work Phone: 02-17-2017 11:30-0400 Pulse (Heart Rate) 70 /min [facility] Work Phone: 02-17-2017 11:30-0400 Weight 72.76 kg Amber Pineda LPN [facility] Work Phone: 10-03-2016 12:46-0500 BSA (Body Surface Area) 1.89 m2 Amber Pineda LPN [facility] Work Phone: 10-03-2016 12:46-0500 Respiratory Rate 18 /min Amber Pineda LPN [facility] Work Phone: 08-19-2016 13:36-0500 Height 177.8 cm Amber Pineda LPN [facility] Work Phone: 08-19-2016 13:36-0500 Weight 72.45 kg Amber Pineda LPN [facility] Work Phone: Encounters Encounter Date Encounter Type Care Provider Facility Start: 06-22-2023 ambulatory [facility] Facility:[facility] Start: 06-22-2023 End: 06-22-2023 Office outpatient visit 15 minutes [facility] INFIRMARY ATTENDANT-PERFORMANCE INSTRUCTOR Work Phone: [facility] Procedures Date Procedure Procedure Detail Performing Clinician [...] MD Work Phone: Start: 03-31-2015 End: 03-31-2015 ESTIVENN Jimy Oconnell MD Work Phone: Start: 03-31-2015 [...] Detail Author Start: 05-07-2028 Tetanus vaccination TETANUS [facility] Start: 05-29-2024 End: 05-29-2024 Patient encounter procedure 05/29/2024 2:00 PM EDT Office Visit [facility] [address] [phone] [place] Dorado APRN-CNP [address] [phone] [facility] Start: 06-27-2023 End: 06-27-2023 Patient encounter procedure 06/27/2023 Office Visit Cardiovascular Medicine Simone Fritz DO [address] [phone] [facility] Start: 10-30-2017 End: 10-30-2017 Appointment Appointment [facility] Work Phone: Start: 10-16-2017 End: 04-21-2017 *Hepatic Function Panel *Hepatic Function Panel [facility] Work Phone: Start: 10-16-2017 End: 04-21-2017 Lipid panel [AGGREGATE] *Lipid Profile CC PCP [facility] Work Phone: Start: 04-13-2017 End: 04-13-2017 Appointment Appointment [facility] Work Phone: Start: 04-13-2017 End: 04-18-2017 *Hepatic Function Panel *Hepatic Function Panel [facility] Work Phone: Start: 04-13-2017 End: 04-13-2017 МАРИЯ HSIEH [facility] Work Phone: Start: 04-13-2017 End: 04-13-2017 Follow Up Appt 6 months Follow Up Appt 6 months [facility] Work Phone: Start: 04-13-2017 End: 04-18-2017 Lipid panel [AGGREGATE] *Lipid Profile CC PCP [facility] Work Phone: Start: 04-06-2017 End: 04-06-2017 Appointment Appointment [facility] Work Phone: Start: 02-17-2017 End: 02-17-2017 Appointment Appointment [facility] Work Phone: Start: 10-23-2016 End: 06-09-2016 *Hepatic Function Panel *Hepatic Function Panel [facility] Work Phone: Start: 10-23-2016 End: 06-09-2016 Lipid panel [AGGREGATE] *Lipid Profile CC PCP [facility] Work Phone: Start: 10-03-2016 End: 10-03-2016 МАРИЯ HSIEH [facility] Work Phone: Start: 10-03-2016 End: 10-03-2016 Follow Up Appt 6 months Follow Up Appt 6 months [facility] Work Phone: Start: 06-08-2016 End: 06-08-2016 *BMP *BMP [facility] Work Phone: Start: 06-08-2016 End: 06-08-2016 Follow Up BP Check Follow Up BP Check [facility] Work Phone: Start: 05-06-2016 End: 05-06-2016 МАРИЯ HSIEH [facility] Work Phone: Start: 05-06-2016 End: [...] Lipid panel [AGGREGATE] *Lipid Profile CC PCP [facility] Work Phone: Start: 10-06-2015 End: 10-23-2015 *Hepatic Function Panel *Hepatic Function Panel [facility] Work Phone: Start: 10-06-2015 End: 10-06-2015 DJN ESTIVENN [facility] Work Phone: Start: 10-06-2015 End: 10-06-2015 Follow Up Appt 1 year Follow Up Appt 1 year [facility] Work Phone: Start: 10-06-2015 End: 10-23-2015 Lipid panel [AGGREGATE] *Lipid Profile CC PCP [facility] Work Phone: Start: 06-12-2015 End: 10-06-2015 *Hepatic Function Panel *Hepatic Function Panel [facility] Work Phone: Start: 06-12-2015 End: 10-06-2015 Lipid panel [AGGREGATE] *Lipid Profile CC PCP [facility] Work Phone: Start: 03-31-2015 End: 03-31-2015 МАРИЯ DJN [facility] Work Phone: Start: 03-31-2015 End: 03-31-2015 Echocardiography Echocardiogram (complete) [facility] Work Phone: Start: 03-31-2015 End: 03-31-2015 Follow Up Appt 6 months Follow Up Appt 6 months [facility] Work Phone: Start: 03-31-2015 End: 04-28-2015 Thyroid stimulating hormone (TSH) *TSH [facility] Work Phone: Start: 03-31-2015 End: 04-28-2015 Thyroxine (T4) *T4 (Total) [facility] Work Phone: Start: 12-15-2014 End: 12-11-2014 *Hepatic Function Panel *Hepatic Function Panel [facility] Work Phone: Start: 12-15-2014 End: 12-02-2014 Lipid panel [AGGREGATE] *Lipid Profile CC PCP [facility] Work Phone: Start: 12-01-2014 End: 12-01-2014 Cardiac Rehab Cardiac Rehab [facility] Work Phone: Start: 12-01-2014 End: 12-01-2014 DJN DJN [facility] Work Phone: Start: 12-01-2014 End: 12-01-2014 Echocardiography Echocardiogram (complete) [facility] Work Phone: Start: 12-01-2014 End: 12-01-2014 Electrocardiogram, complete EKG (In office) [facility] Work Phone: Start: 12-01-2014 End: 12-01-2014 Follow Up Appt 4 months Follow Up Appt 4 months [facility] Work Phone: Start: 11-25-2014 End: 12-01-2014 Cardiac Rehab Cardiac Rehab [facility] Work Phone: Start: 2002 Screening for malignant neoplasm of colon COLORECTAL CANCER SCREENING DISCUSSION [facility] Start: 1997 Lipid panel LIPID SCREENING [facility] Start: 1997 Screening for malignant neoplasm of breast MAMMOGRAM SCREENING DISCUSSION [facility] Start: 1978 Screening for malignant neoplasm of cervix CERVICAL CANCER SCREENING DISCUSSION [facility] Start: 1972 HIV screening HIV SCREENING DISCUSSION [facility] Start: 04-07-1958 COVID-19 VACCINE (#1) COVID-19 VACCINE (#1) [facility] Start: 1957 Hepatitis C screening HEPATITIS C VIRUS SCREENING [facility] Start: 1957 Potassium [Moles/volume] in Serum or Plasma POTASSIUM [facility] Start: 1957 Screening for osteoporosis DEXA SCAN DISCUSSION [facility] Ambulatory ECG OR ECG (OFFICE R EAD ONLY) OR - OFFICE PERFORMED Routine Coronary artery disease involving [place] coronary artery of [place] heart without angina pectoris Essential hypertension, benign Mixed hyperlipidemia Ordered: 06/21/[address] [facility] Payers Date Payer Category Payer Private Health Insurance [employer] [id number] 2023-Present [address] [place] [id number] 2023 Private Health Insurance [id number] 2019 Unknown [facility] [employer] [id number] 2019-Present [address] [address] [place] [address] [id number] 2019 Unknown [id number] 1955 Unknown [id number] 1957 Unknown [id number] 1957 Unknown [id number] 1957 Unknown [id number] Social History Date Type Detail Facility Start: 06-21-2022 Tobacco smoking stat [facility] Never smoked tobacco [facility] Start: 06-21-2022 Tobacco use and exposure Smokeless tobacco non-user [facility] Start: 06-21-2022 End: 06-22-2023 Alcohol intake Current drinker of alcohol (finding) [facility] Start: 06-21-2022 Alcohol Comment 1 [facility] Start: 1955 Sex Assigned At Not on file O JENKINS [facility] Start: 06-22-2023 History of Social function [facility] Start: 06-22-2023 Tobacco use panel [facility] History of Present illness Narrative 06-22-2023 Ole Dorado, LISSETTE-YANETH - 06/22/2023 12:00 PM EST Note Date & Type Note Facility 06-22-2023 History of Present illness Narrative , is a 67 y.o. female who presented 06/22/2023 at the [facility]. Mary has a medical history of CAD/STEMI [...] function, impaired relaxation, no significant valve disease [facility] 11/2014 s/p PCI RENY x1 mLAD, moderate disease distally w/o intervention ASSESSMENT/PLAN: * CAD - S/p STEMI PCI 2014 - 2019 no evidence of ischemia, METS 10.1 - TTE 2018 normal biV function, impaired relaxation, no significant valve disease - [facility] 11/2014 s/p PCI RENY x1 mLAD, moderate [...] in one year documented in this encounter [facility] History of Present illness Narrative 06-21-2022 Teresa Akers MA - 06/21/2022 2:30 PM ESTSimone Fritz DO - 06/21/2022 2:30 PM EST Note Date & Type Note Facility 06-21-2022 History of Present illness Narrative 12 Lead EKG performed per provider's order, per policy, and given to Dr. Fritz for interpretation. HISTORY It was my privilege to see Ms. Mary Victor at [facility] [place] on 06/21/2022 for her CAD. She is a 66 y.o. female hx CAD/STEMI 11/2014 s/p mLAD PCI RENY, HTN, HLP, presenting here to re-establish with cardiology. She denies any CP, SOB, orthopnea/PND, worsening LE edema, palpitations, syncope. 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 She reports [...] MEDICAL HISTORY Past Medical History: Diagnosis Date MD (myocardial infarction) Migraine PAST SOCIAL HISTORY Social [...] erythema: Skin: No jaundice or rash Neuro: homebirth midwife grossly intact. Strength grossly equal in muscle groups of the bilateral UEs and LEs. Psych: appropriate affect and cognition LABS AND TEST RESULTS No results found for: CHOLESTEROL, TRIG, HDL, LDLCALC No results found for: ALT, GLUCOSE, HGBA1C, TSH No results found for: SODIUM, POTASSIUM, CHLORIDE, CO2, BUN, CREATSERUM, GLUCOSE Reviewed all testing and notes from 2014 to 10/2021 [facility] 11/2014 - s/p PCI RENY x 1 [...] brought with her as described above. Reviewed [facility] film of her mLAD post-PCI that appears [...] contact me. Respectfully yours, Simone Fritz DO, [facility] Bilingual Hr Generalist of Clinical Internal Medicine [facility] Note Date & Type Note Facility [facility] this [facility] Note Date & Type Note Facility documented in this encounter [facility] Summary Purpose Family History No Family History Records FoundNo Family History Records Found Advance Directives No Advanced Directives Records FoundNo Advanced Directives Records Found Additional Source Comments INFORMATION SOURCE (unrecogn ized section and content) DATE CREATED AUTHOR AUTHOR'S ORGANIZ ATION 06/24/2023 [facility] Reason for Visit (unrecogniz ed section [...] BE BASED ON THE PRIMARY CLINICAL RECORDS. [employer] provides no warranty or guarantee of the accuracy or completeness of information in this document.
--- NOTE | 2023-10-12 15:56 | CL.D_ITS ---
Patient Name: MARY VICTOR I Study Date: 10/10/2023 Performing: Briana Noland MD Ht: 69 inches 175.26 cm : 1955 Wt: 157.6 lbs 71.38 kg Age: 68 Gender: female BSA: 1.87 PROCEDURE(S) PERFORMED DC01-([id number])LHC/COR/LV CLINICAL PROFILE AND INDICATIONS Indications: Abnormal Stress test Heart Failure: None CONCLUSIONS CAD as described. LVEF is 60%. No significant aortic stenosis or mitral regurgitation RECOMMENDATIONS Medical therapy for CAD DESCRIPTION OF PROCEDURE The patient arrived to the procedure lab. The risks and benefits of the procedure as well as a full description of our services here and current unavailability of surgical backup were fully explained to the patient and/or their significant other prior to the catheterization. The Timeout was completed, verifying the correct patient and procedure. The patient's procedural site was prepped and draped in the usual fashion. Local anesthetic was given subcutaneously to right radial region with Lidocaine 2%. Using a modified Seldinger technique, arterial access was obtained via the right radial artery, a 6Fr sheath was inserted. Left Coronary Artery selective angiography was performed in multiple views using a 5 Fr. JL3.5 catheter. Left Ventriculography was performed in ARTEAGA projection using a 5 Fr.. LV to AO pullback pressures were then recorded. Right Coronary Artery selective angiography was then performed in multiple views using a 5 Fr. JR 4 catheter. Right Coronary Artery selective angiography was then performed in multiple views using a 5 Fr. JR 4 catheter.The arterial sheath was pulled and a TR Band was applied for hemostasis CORONARY ANGIOGRAPHY DOMINANCE: Right Dominant LEFT HEART ASSESSMENT Left Ventricular Ejection Fraction: by LV Gram 65 % LEFT MAIN: Mild luminal irregularities LEFT ANTERIOR DESCENDING ARTERY: Patent stent in the LAD. 30% stenosis distal to the stent. There is a small diagonal branch that is jailed by the stent that has 80% ostial stenosis. This is a very small branch, about 1.25 mm in diameter CIRCUMFLEX ARTERY: OM 1: Ostial - 40 % Stenosis RIGHT CORONARY ARTERY: 30% stenosis in the proximal right PDA VALVE FINDINGS: No Aortic Valve Stenosis No Mitral Insufficiency COMPLICATIONS No Complications PROCEDURE MEDICATIONS Versed 1 mg IV Fentanyl 50 mcg IV Oxygen: 2 L/min via nasal cannula Heparin given IA 10/10/2023 09:43:16 Verapamil 2.5mg, Ntg 100mcgs, 3000 units of Heparin given IA 10/10/2023 09:43:16 SUMMARY OF HEMODYNAMIC DATA Time AIR REST ECG 08:24:42 AO 159/87 (119) SA 09:45:38 LV 175/-4, 15 09:50:05 LV 176/-3, 18 09:50:14 LV 170/-2, 17 09:50:48 LVp 172/-1, 16 09:50:57 AOp 172/81 (121) 09:51:04 ECG 10:10:43 Signed By Briana Noland MD On 10/12/2023 15:56:18 Briana Noland MD
== END 2023-10-10 12:55 | disposition home or self-care (01) ==
LOC: CLSP 08:07
PROVIDERS: Physician Assistant Medical; PCP Family Medicine; Referring Provider Specialist; Visit Provider Specialist
DX: I25.10 Atherosclerotic heart disease of native coronary artery without angina pectoris (principal); I10 Essential (primary) hypertension; E78.2 Mixed hyperlipidemia; I25.2 Old myocardial infarction; Z95.5 Presence of coronary angioplasty implant and graft; Z79.82 Long term (current) use of aspirin; Z79.899 Other long term (current) drug therapy; Z87.891 Personal history of nicotine dependence
CPT/HCPCS: 36415; 71046; 80048; 85025; 85610; 85730; 93458; 99152; 99153; J7040; Q9967; C1769; C1894

== ENCOUNTER 2023-11-02 05:33 | Day surgery (SDC) | payer OTHER, SELFPAY ==
[2023-11-02] MEDS: Lactated Ringers 1,000 ML 15 ML IV (06:11)
[2023-11-02 06:12] VITALS: BP 156/87; PULSE 60; RESP 18; TEMP 36.8; O2SAT 100; BMI 23.3
--- NOTE | 2023-11-02 06:56 | PCM.HP.STD ---
HPI - General General Date of Admission: 11/02/23 Date of Service: 11/02/23 Chief Complaint: Screening colonoscopy HPI Narrative MARY VICTOR, is a 68 F who presents today for screening colonoscopy. She does not have any abdominal pain. Does not have any cramping. She does not have any chest pain or shortness of breath. Overall she is in very good health. She did have a colonoscopy approximately 10 years ago and had 1 benign polyp removed. She does have a past medical history of hypertension, hypercholesterolemia which are controlled with medicines. [facility] Medical History Allergies Arthritis Atherosclerosis of [place] coronary artery of [place] heart without angina pectoris Bilateral headaches Cardiology follow-up encounter Essential (primary) hypertension Former smoker History of echocardiogram History of stress test Hx of colonic polyp Mixed hyperlipidemia Non-rheumatic tricuspid valve insufficiency Old myocardial infarction (~11/18/14) Wears glasses Home Medications aspirin 81 mg tablet,delayed release (Adult Low Dose Aspirin) 81 mg PO DAILY 12/09/20 [History Last Taken 10/30/23] atorvastatin 80 mg tablet 80 mg PO QHS #90 tabs 10/25/21 [Rx Last Taken 11/01/23] hydrochlorothiazide 25 mg tablet 25 mg PO DAILY #90 tabs 04/19/22 [Rx Last Taken 11/01/23] metoprolol tartrate 25 mg tablet 25 mg PO BID 06/05/23 [History Last Taken 11/02/23 04:30] vrnbfttexvsk-Jv-jgxb-minerals 18 mg-0.4 mg tablet 1 tab PO DAILY 06/05/23 [History Last Taken Unknown] tizanidine 4 mg capsule 4 mg PO QHS PRN muscle spasticity 06/05/23 [History Last Taken Unknown] vitamin D3 125 mcg (5,000 unit)-vitamin K2 90 mcg capsule 1 cap PO DAILY 06/05/23 [History Last Taken Unknown] losartan 25 mg tablet 50 mg PO DAILY 09/26/23 [History Last Taken 11/02/23 04:30] Allergy/AdvReac Type Severity Reaction Status Date / Time codeine Allergy Itching Verified 11/02/23 06:10 lisinopril AdvReac Intermediate cough Verified 11/02/23 06:10 Family History Other Cancer Hypertension Surgical History H/O hernia repair H/O total hysterectomy History of coronary artery stent placement (~11/18/14) Hx of cardiac catheterization Hx of colonoscopy Social History current occupational status: employed current occupation: [employer] Smoking Status: Former smoker alcohol intake: current alcohol intake frequency: a few times a month Alcohol type: wine substance use type: does not use what type of physical activity do you participate in: walking frequency: 3-4 times per week ROS Review of Systems ROS Unobtainable: other Constitutional Constitutional: Denies fatigue, fever(s), poor appetite, weight gain or weight loss ENT HEENT: Denies mouth lesions Cardiovascular Cardiovascular: Denies abdominal bloating, abdominal edema or abdominal pain Respiratory/Chest Respiratory/Chest: Denies change in mental status, change in phlegm color, chest congestion or chest tightness Gastrointestinal Gastrointestinal: Denies belching, bloating, change in bowel habits, change in stool character, chewing difficulty, coffee ground emesis, constipation, cramping, diarrhea, dyspepsia, dysphagia, early satiety, excessive flatus, fecal incontinence, heartburn, hematemesis, hematochezia, hemorrhoids, loose stools, melena, nausea, odynophagia, rectal bleeding, tenesmus, vomiting or weight changes Genitourinary Genitourinary: Denies abdominal discomfort, burning urination or itching Musculoskeletal Musculoskeletal: Reports as per HPI; Denies muscle weakness or myalgias Integumentary Integumentary: Denies jaundice Neurologic Neurologic: Denies lack of coordination or weakness Psychiatric Psychiatric: Denies confusion, depression, memory loss, mood swings, paranoia or suicidal ideation Endocrine Endocrinology: Denies systems reviewed and no addt'l complaints, except as documented Hematologic/Lymphatic Hematologic/Lymphatic: Denies anemia, easy bleeding, easy bruising or lymphadenopathy Allergic/Immunologic Allergic/Immunologic: Denies systems reviewed and no addt'l complaints, except as documented Vital Signs Vital Signs Vital Signs: 11/02/23 06:12 11/02/23 06:12 Temperature 98.3 F Temperature Source Temporal Pulse Rate 60 Respiratory Rate 18 Respiratory Pattern Normal Blood Pressure 156/87 H Blood Pressure Mean 110 Blood Pressure Source Monitor Blood Pressure Position Semi-Fowlers Blood Pressure Location Right Arm Pulse Ox 100 Oxygen Delivery Method Room Air Weight Weight: 158 lb Body Mass Index (BMI) 23.3 Physical Exam Const alert General Appearance: cooperative Orientation / Consciousness: oriented to person HEENT hearing grossly normal bilaterally Head and Scalp: normal to inspection Face and Sinus: face symmetric Nose: external nose normal Mouth: oral and palatal mucosa normal Eyes conjunctivae normal General Eye: normal appearance of both eyes Neck full ROM General: normal visual inspection Lymph Lymphatic: no lymphadenopathy noted Chest inspection of chest normal and palpation of chest normal Chest: symmetrical chest wall rise Resp normal respiratory effort Effort and Inspection: able to speak in complete sentences Cardio regular rate GI non-distended Percussion: normal to percussion Rectal Exam: deferred Neuro Speech: speech normal Gait (Neuro): normal gait Assessment & Plan Assessment/Plan (1) Encounter for screening for malignant neoplasm of colon: PLAN: 68-year-old comes in with past medical history of hypertension, CAD history of PA status post PTCA with stents for screening colonoscopy. She was explained alternatives, risk, benefits including not withstanding bleeding, infection, sepsis, perforation, need for emergent surgery and . She will have an ASA of 3.
--- NOTE | 2023-11-02 07:00 | COLBX_PTH ---
PATIENT: MARY VICTOR I LOC: EN U#:[id number] AGE/SX: 68/F ROOM: RE11/02/[address]: Dr. Ramin Dunlap DO : 1955 BED: DIS: 11/02/2023 SPEC #: [id number] RECD: 11/02/23 10:14 STATUS: LAVELLE RONNA #: [id number] PAPI: 11/02/23 07:[address]: Ramin Dunlap DEPT: SURGICAL PATHOLOGY RECD BY: Melodie Owusu ENTERED: 11/02/23 11:52 SP TYPE: COLON BX OTHR DR: Dr. Jericho Gastelum MD Tissues: COLON BIOPSY Procedures: Surgery Specimen Level IV HEADER OPERATION: Colonoscopy, open access with biopsy PRE-OP DIAGNOSIS: Encounter for screening for malignant neoplasm of colon TISSUE SUBMITTED: Splenic flexure biopsy polyp MICROSCOPIC DIAGNOSIS Colonic polyp at hepatic flexure, biopsy; Tubular adenoma. AM/mr 11/03/2023 MICROSCOPIC DESCRIPTION Slides are reviewed. GROSS DESCRIPTION Received in fixative is one container labeled with the patient's name and designated Splenic flexure biopsy polyp. The specimen consists of one irregular fragment of light apple soft tissue that measures 0.4 x 0.3 x 0.1 cm. The specimen is totally submitted in one cassette. ANALI/ 11/02/2023 TC:5 CPT: 67947
[2023-11-02 07:27] VITALS: BP 118/82; BP 156/87; PULSE 71; RESP 16; TEMP 36.2; O2SAT 99
--- NOTE | 2023-11-02 07:27 | OP.CCLET_ITS ---
11/02/2023 Kaushal Gastelum [address] [place] [address] Re : Colonoscopy procedure for Taylor Valdez Dear Dr. Gastelum This procedure was performed on October. My impressions and recommendations are as follows: Impressions : - Diverticulosis in the recto-sigmoid colon, in the sigmoid colon and in the descending colon. - One 5 mm polyp at the splenic flexure, removed with a jumbo cold forceps. Resected and retrieved. Recommendations : - Repeat colonoscopy in 5 years for surveillance. - Continue present medications. My findings are described in the full procedure note, which is enclosed. If I can be of further assistance, please feel free to contact me at . Sincerely, Ramin Dunlap, 11/02/2023 7:27:03 AM This report has been signed electronically.
--- NOTE | 2023-11-02 07:27 | OP.COLON_ITS ---
Patient Name: Taylor Valdez Procedure Date: 11/02/2023 6:59 AM Date of : 1955 Age: 68 Procedure: Colonoscopy Indications: Screening for colorectal malignant neoplasm Providers: DO Bobbi Tillman MD: Kaushal Gastelum Medicines: Monitored Anesthesia Care Patient Profile: This is a 68 year old female. Refer to note in patient chart for documentation of history and physical. Last Colonoscopy: more than 10 years ago. Complications: No immediate complications. Procedure: Pre-Anesthesia Assessment: - Prior to the procedure, a History and Physical was performed, and patient medications and allergies were reviewed. The risks and benefits of the procedure and the sedation options and risks were discussed with the patient. All questions were answered and informed consent was obtained. Patient identification and proposed procedure were verified by the physician. Mental Status Examination: normal. Airway Examination: normal oropharyngeal airway and neck mobility. Prophylactic Antibiotics: The patient does not require prophylactic antibiotics. Prior Anticoagulants: The patient has taken no anticoagulant or antiplatelet agents. ASA Grade Assessment: III - A patient with severe systemic disease. After reviewing the risks and benefits, the patient was deemed in satisfactory condition to undergo the procedure. The anesthesia plan was to use monitored anesthesia care (MAC). Immediately prior to administration of medications, the patient was re-assessed for adequacy to receive sedatives. The heart rate, respiratory rate, oxygen saturations, blood pressure, adequacy of pulmonary ventilation, and response to care were monitored throughout the procedure. The physical status of the patient was re-assessed after the procedure. After I obtained informed consent, the scope was passed under direct vision. Throughout the procedure, the patient's blood pressure, pulse, and oxygen saturations were monitored continuously. The Colonoscope was introduced through the anus and advanced to the cecum, identified by appendiceal orifice and ileocecal valve. The colonoscopy was performed without difficulty. The patient tolerated the procedure well. The quality of the bowel preparation was adequate. The ileocecal valve, appendiceal orifice, and rectum were photographed. Scope In: 7:08:52 AM Scope Withdrawal Time 0 hours 9 minutes 15 seconds Scope Out: 7:20:51 AM Total Procedure Duration Time 0 hours 11 minutes 59 seconds Findings: The perianal and digital rectal examinations were normal. Multiple small and large-mouthed diverticula were found in the recto-sigmoid colon, sigmoid colon and descending colon. A 5 mm polyp was found in the splenic flexure. The polyp was sessile. The polyp was removed with a jumbo cold forceps. Resection and retrieval were complete. Verification of patient identification for the specimen was done. Estimated blood loss was minimal. Non-bleeding external and internal hemorrhoids were found during retroflexion. The hemorrhoids were Grade II (internal hemorrhoids that prolapse but reduce spontaneously). Impression: - Diverticulosis in the recto-sigmoid colon, in the sigmoid colon and in the descending colon. - One 5 mm polyp at the splenic flexure, removed with a jumbo cold forceps. Resected and retrieved. Recommendation: - Repeat colonoscopy in 5 years for surveillance. - Continue present medications. Procedure Code(s): --- Professional --- 62856, Colonoscopy, flexible; with biopsy, single or multiple CPT copyright 2021 [employer]. All rights reserved. The codes documented in this report are preliminary and upon professional fee coder review may be revised to meet current compliance requirements. Ramin Dunlap DO 11/02/2023 7:27:03 AM This report has been signed electronically. Number of Addenda: 0 Note Initiated On: 11/02/2023 6:59 AM
[2023-11-02 07:30] VITALS: BP 125/82; BP 156/87; PULSE 72; RESP 16; O2SAT 99
[2023-11-02 07:35] VITALS: BP 125/77; BP 156/87; PULSE 66; RESP 16; TEMP 36.1; O2SAT 97
[2023-11-02 08:08] VITALS: BP 156/87
== END 2023-11-02 08:10 | disposition home or self-care (01) ==
LOC: EN 05:36 → AC 05:37
PROVIDERS: PCP Family Medicine; Referring Provider Family Medicine; Visit Provider Internal Medicine Gastroenterology
PROC: 0DJD8ZZ Inspection of Lower Intestinal Tract, Via Natural or Artificial Opening Endoscopic (ICD-10-PCS; CPT 45378; principal; 2023-11-02 06:55)
DX: Z12.11 Encounter for screening for malignant neoplasm of colon (principal); D12.3 Benign neoplasm of transverse colon; K57.30 Diverticulosis of large intestine without perforation or abscess without bleeding; E78.2 Mixed hyperlipidemia; K64.1 Second degree hemorrhoids; I25.10 Atherosclerotic heart disease of native coronary artery without angina pectoris; I25.2 Old myocardial infarction; I10 Essential (primary) hypertension; Z95.5 Presence of coronary angioplasty implant and graft; Z79.82 Long term (current) use of aspirin; Z79.899 Other long term (current) drug therapy; Z86.010 Personal history of colon polyps; Z87.891 Personal history of nicotine dependence
CPT/HCPCS: 45380; 88305; J7120; J2405

== ENCOUNTER → 2024-05-01 | Outpatient (CLI) | payer OTHER, SELFPAY ==
--- NOTE | 2024-05-01 12:44 | BI_ITS ---
MAMMOGRAPHY - BILATERAL SCREENING REASON FOR EXAM: Female, 68 years old. Routine annual screening examination. PERTINENT HISTORY: Non-contributory. TECHNIQUE: Digital bilateral breast jose luis (3D mammographic acquisition) in the CC and MLO projections. 2-D mediolateral oblique (MLO) and craniocaudad (CC) views of both breasts were obtained. CAD: Full Field Digital Mammography with Computer Added Detection was performed. COMPARISON: Comparison is made with prior study dated April 24, 2023 and April 13, 2022. FINDINGS: Breast Composition: There are scattered areas of fibroglandular density. There are no dominant masses or suspicious calcifications. Stable small benign-appearing bilateral axillary lymph nodes. No other significant abnormalities are identified. There has been no significant change since the prior study. BI/SCRN MAMM (CAD)W/JOSE LUIS BILAT IMPRESSION: Stable bilateral screening mammogram. Yearly follow-up mammogram recommended. (A) ASSESSMENT CATEGORY: BIRADS Category 2: Benign. A letter regarding these results will be sent to the patient by the facility within 30 days. Approximately 10% of breast cancers are not detected by mammography. A normal mammogram should not delay biopsy of a clinically suspicious abnormality. [id number] Electronically Signed: Jimenez Perera MD at 13:36 EDT ,
== END | disposition home or self-care (01) ==
LOC: OPBI 12:40
PROVIDERS: PCP Family Medicine; Referring Provider Family Medicine; Visit Provider Family Medicine
DX: Z12.31 Encounter for screening mammogram for malignant neoplasm of breast (principal)
CPT/HCPCS: 77063; 77067

== ENCOUNTER → 2024-05-14 | Outpatient (CLI) | payer OTHER, SELFPAY ==
[2024-05-14 11:31] LABS: AST(SGOT) 21 U/L (15-37); Alanine Aminotransfer ALT/SGPT 28 U/L (13-56); Albumin, Serum 3.7 g/dL (3.2-5.0); Alkaline Phosphatase 82 U/L (45-117); Bilirubin, Direct 0.21 mg/dL (0.00-0.30); Cholesterol 171 mg/dL (200); Globulin 3.3 g/dL (2.2-4.2); High Density Lipoprotein 91 mg/dL; Triglycerides 58 mg/dL; Very Low Density Lipoprotein 12 mg/dL (5-40)
== END | disposition home or self-care (01) ==
LOC: LAB 09:45
PROVIDERS: PCP Family Medicine; Referring Provider Physician Assistant Medical; Visit Provider Physician Assistant Medical
DX: E78.2 Mixed hyperlipidemia (principal); I25.10 Atherosclerotic heart disease of native coronary artery without angina pectoris
CPT/HCPCS: 36415; 80061; 80076

== ENCOUNTER → 2024-06-13 | Outpatient (CLI) | payer OTHER, SELFPAY ==
--- NOTE | 2024-06-13 09:18 | BD_ITS ---
STUDY: DUAL ENERGY X-RAY ABSORPTIOMETRY / DXA REASON FOR EXAM: Female, 68 years old. V76.12ScreeningBONE DENSITY REASON FOR EXAM TECHNIQUE: Bone Mineral Density (BMD) measurements of lumbar spine and bilateral hips were obtained. COMPARISON: Comparison is made with prior study dated June 19, 2018. FINDINGS: Lumbar Spine (L1-L4): g/cm2 (0.776) / T-score (-2.5) / Z-score (-0.6) Findings are suggestive of osteopenia with a high fracture risk. Left Femur Total: g/cm2 (0.817) / T-score (-1.0) / Z-score (0.3) Left Femoral Neck: g/cm2 (0.718) / T-score (-1.2) / Z-score (0.4) Right Femur Total: g/cm2 (0.850) / T-score (-0.8) / Z-score (0.6) Right Femoral Neck: g/cm2 (0.680) / T-score (-1.5) / Z-score (0.1) The T-Scores on the most recent prior examination were: Lumbar Spine (L1-L4): There has been worsening of bone density since the previous examination. Left Femur Total: which represents a worsening of 8.4%. Right Femur Total: which represents a worsening of 2.8%. BD/Dexa Bone Density Study IMPRESSION: The patient is considered osteopenic as outlined below according to World Harshad Organization (WHO) criteria with a high fracture risk. There has been worsening of bone density since the previous examination. Reference Information: The T-score is the number of standard deviations above or below the standard which is normal for young adults at their peak bone mineral density. The World Health Organization (WHO) interprets the T-scores as follows: Above -1 Normal bone density Between -1 and -2.5 Osteopenia Equal to / or below -2.5 Osteoporosis As a practical clinical guideline, osteopenia may be graded as follows: Mild -1 through -1.5 Moderate -1.6 through -2.0 Severe -2.1 through -2.4 The Z-score is the number of standard deviations above or below age-matched controls. A Z-score of less than -1.5 would be considered abnormal. References: 1. NIH Osteoporosis and Related Bone Diseases www osteo.org 2. International Society for Clinical Densitometry www iscd.org 3. National Osteoporosis Foundation www nof.org Electronically Signed: Jimenez Perera MD at 12:37 EST ,
--- OUTSIDE RECORDS SUMMARY | 2024-06-13 10:13 | XMS RPT_ITS | CCD ---
Author Organization [facility] Care Team Providers Care Larry Car Operator Name Role Phone Cathryn Borja LPN Unavailable [phone] NANCI Mccann, Fanny Sauceda Unavailable Unavailmelissa Mccann RN, Fanny Sauceda Unavailable Unavailabl e Roxi Juaerz Unavailable Unavailable Kim Shultz Unavailable Unavailable Pineda Amber MCINTOSH Unavailable Unavailable Amber Pineda LPN Unavailable Unavailable Unavailable Primary Care Provider Arsenio Espinoza MD Primary Care Provider OLE DORADO Attending Unavailable SELF, SELF Referring Unavailable ARSENIO GASTELUM Primary Care ARSENIO Espinoza Referring ARSENIO Espinoza Primary Care Bernadette almazan Allergies Allergy Classification Reported Allergen(s) Allergy Type Date of Onset Reaction(s) Facility (7 sources) lisinopril drug allergy 11-25-2014 Cough [facility] Work Phone: (3 sources) Codeine Drug Allergy 06-21-2022 [facility] Medications Current Medications Medication Drug Class(es) Dates Sig (Normalized) Sig (Original) aspirin 81 mg chewable tablet (20 sources) Nonsteroidal Anti-inflammatory Drug Start: 06-21-2022 aspirin 81 MG Chew Tab chewable tablet Indications: Coronary artery disease involving [place] coronary artery of [place] heart without angina pectoris , Essential hypertension, benign , Mixed hyperlipidemia Chew 1 tablet daily. 06/21/2022 Active Start: 11-25-2014 take 1 tablet by hawa th once daily ASPIRIN 325 MG TABS One tablet by mouth daily ASPIRIN [id number] Fanny Mccann RN Start: 11-25-2014 take 1 tablet by hawa th once daily ASPIRIN 81 MG TABS One tablet by mouth daily ASPIRIN [id number] Jimy Oconnell MD Start: 11-25-2014 take 1 tablet by hawa th once daily ASPIRIN 81 MG TABS One tablet by mouth daily ASPIRIN [id number] Jimy Oconnell MD Start: 11-25-2014 take 1 tablet by hawa th once daily ASPIRIN EC 81 MG TBEC One tablet by mouth daily ASPIRIN [id number] Ling Albarran RN atorvastatin 80 mg oral tablet (11 sources) HMG-CoA Reductase Inhibitor Start: 10-03-2023 End: 06-10-2024 take 1 tablet by mouth at bedtime atorvastatin 80 MG tablet Take 1 tablet by mouth at bedtime. 90 tablet 2 06/10/2024 Active Start: 12-06-2022 take 1 tablet by hawa th at bedtime atorvastatin 80 MG tablet Take 1 tablet by mouth at bedtime. 90 tablet 2 12/06/2022 Active Start: 11-25-2014 ATORVASTATIN C ALCIUM 80 MG TABS One tablet by mouth ever evening ATORVASTATIN CALCIUM [id number] Jimy Oconnell MD losartan potassium 100 mg oral tablet (19 sources) Angiotensin 2 Receptor Aura Start: 06-10-2024 take 1 tablet by mouth once daily Losartan 100 MG tablet Indications: Coronary artery disease involving [place] coronary artery of [place] heart without angina pectoris , Essential hypertension, benign , Mixed hyperlipidemia Take 1 tablet by mouth daily. 90 tablet 3 06/10/2024 Active Start: 11-22-2023 End: 06-10-2024 take 1 tablet by mouth once daily Losartan 50 MG tablet Indications: Coronary artery disease involving [place] coronary artery of [place] heart without angina pectoris , Essential hypertension, benign , Mixed hyperlipidemia Take 1 tablet by mouth daily. 90 tablet 3 11/22/2023 06/10/2024 Discontinued Start: 12-05-2022 take 1 tablet by hawa th once daily Losartan 50 MG tablet Indications: Coronary artery disease involving [place] coronary artery of [place] heart without angina pectoris , Essential hypertension, benign , Mixed hyperlipidemia Take 1 tablet by mouth daily. 90 tablet 2 12/05/2022 Active Start: 06-21-2022 take 1 tablet by hawa th once daily losartan 50 MG tablet Indications: Coronary artery disease involving [place] coronary artery of [place] heart without angina pectoris , Essential hypertension, benign , Mixed hyperlipidemia Take 1 tablet by mouth daily. 90 tablet 3 06/21/2022 Active Start: 12-01-2014 End: 06-21-2022 take 1 tablet by mouth twice daily COZAAR 25 MG TABS One tablet by mouth twice daily LOSARTAN POTASSIUM [id number] Jimy Oconnell MD Start: 12-01-2014 take 1 tablet by hawa th once daily COZAAR 25 MG TABS One tablet by mouth daily LOSARTAN POTASSIUM [id number] Jimy Oconnell MD metoprolol tartrate 25 mg oral tablet (11 sources) beta-Adrenergic Aura Start: 12-14-2023 End: 06-10-2024 take 1 tablet by mouth twice daily Metoprolol 25 MG tab regular release Take 1 tablet by mouth 2 times daily. 180 tablet 3 06/10/2024 Active Start: 05-11-2023 take 1 tablet by hawa th twice daily Metoprolol 25 MG tab regular release Take 1 tablet by mouth 2 times daily. 180 tablet 0 05/11/2023 Active Start: 11-25-2014 End: 06-21-2022 take 1 tablet by mouth twice daily METOPROLOL TARTRATE 25 MG TABS One tablet by mouth twice daily METOPROLOL TARTRATE [id number] Jimy Oconnell MD Multiple Vitamins-Minerals ( WOMENS MULTI PO) (3 sources) Multiple Vitamin s-Minerals (WOMENS MULTI PO) Take by mouth. Active Multiple Vitamin s-Minerals (WOMENS MULTI PO) Take by mouth. 0 Active tiZANidine 4 mg oral tablet (3 sources) Central alpha-2 Adrenergic Agonist take 1 tablet by mouth every six hours as needed tiZANidine 4 MG tablet Take 1 tablet by mouth every 6 hours as needed for Muscle spasms. Active Vitamin D-Vitamin K (D3 + K2 DOTS PO) (3 sources) Vitamin D-Vitami n K (D3 + K2 DOTS PO) Take by mouth. Takes QOD Active Vitamin D-Vitami n K (D3 + K2 DOTS PO) Take by mouth. Takes QOD 0 Active Completed/Discontinued Medications Medication Drug Class(es) Dates Sig (Normalized) Sig (Original) azithromycin 250 mg oral tablet (1 source) Macrolide Antimicrobial Start: 05-09-20 End: 05-14-20 17 ZITHROMAX Z-LORE 250 MG TABS Take 2 pills on day 1 then 1 pill days 2 through 5 [facility] [id number] Best ALARCON clopidogrel 75 mg oral tablet (7 sources) P2Y12 Platelet Inhibitor Start: 11-26-19 15 take 1 tablet by mouth once daily PLAVIX 75 MG TABS One tablet by mouth daily CLOPIDOGREL BISULFATE [id number] Jimy Oconnell MD hydroCHLOROthiazide 12.5 mg oral tablet (10 sources) Thiazide Diuretic Start: 05-25-20 16 take 1 tablet by mouth once daily HYDROCHLOROTHIAZIDE 12.5 MG TABS One tablet by mouth daily HYDROCHLOROTHIAZIDE [id number] Jimy Oconnell MD take 1 tablet by mouth once cheryl y hydroCHLOROthiazide 25 MG tablet Take 1 tablet by mouth daily. Active zolpidem tartrate 5 mg oral tablet (14 sources) gamma-Aminobutyric Acid-ergic Agonist Start: 05-06-2016 End: 10-03-2016 take 1 tablet by mouth at bedtime AMBIEN 5 MG TABS One tablet by mouth at bedtime. ZOLPIDEM TARTRATE [id number] Jimy Oconnell MD Problems Active Problems Problem Classification Problem Date Documented Date Episodic/Chronic Acute myocardial infarction (20 sources) ST elevation (STEMI) myocardial infarction involving other coronary artery of anterior wall; Translations: [Myocardial infarction] Onset: 12-01-2014 Resolved: 05-06-2016 05-06-2016 Chronic Conduction disorders (2 sources) Right bundle branch block; Translations: [Unspecified right bundle-branch block] Onset: 06-10-2024 06-10-2024 Chronic Coronary atherosclerosis and other heart disease (20 sources) Atherosclerotic heart disease of [place] coronary artery without angina pectoris; Translations: [Old myocardial infarction] Onset: 11-25-2014 11-25-2014 Chronic Disorders of lipid metabolism (11 sources) Hyperlipidemia; Translations: [Mixed hyperlipidemia] Onset: 11-25-2014 11-25-2014 Chronic Essential hypertension (11 sources) Hypertensive disorder; Translations: [Benign essential hypertension] [...] (current) use of other medications; Translations: [Other local intermodal truck driver (current) drug therapy] Onset: 11-25-2014 11-25-2014 Episodic Other upper respiratory infections (8 sources) Sinusitis; Translations: [Acute pharyngitis] Onset: 08-19-2016 05-09-2017 Episodic Superficial injury; contusion (7 sources) Contusion of left thumb without damage to nail, initial encounter; Translations: [Contusion of left thumb without damage to nail, initial encounter] Onset: 02-17-2017 02-17-2017 Episodic Results Test Name Value Interpretation Reference Range Facility PROGRESSon 09-16-2019 PROGRESS HNO ID: [id number] Author: Silva Aviles Service: ? Author Type: Cold Roll Operator Type: Progress Notes Filed: 09/16/2019 11:25 AM Note Text: [facility] HEALTH AND SAFETY TECHNICIAN QUICKNOTE Provider Action/FYI: Mary returned my call and states she's no longer getting care with Dr. Penaloza. Dr. Penaloza removed as PCP. Patient identified by name and . Silva Aviles CMA [facility] PROGRESS HNO ID: [id number] Author: Silva Aviles Service: ? Author Type: Cold Roll Operator Type: Progress Notes Filed: 09/16/2019 11:25 AM Note Text: [facility] HEALTH AND SAFETY TECHNICIAN ERISNOTE Provider Action/FYI: 2nd attempt - Left message for patient to return call #[phone] Patient identified by name and . Silva Aviles CMA [facility] CNPTOUTREACHon 09-13-2019 CNPTOUTREACH Patient Outreach (INTMWS) ---- KAYLEIGHMARY I ([id number]) 1955 F Date Time Provider Department 09/13/19 SILVA AVILES) INTMWS During your visit today, we recorded the following information about you: Silva Aviles CMA 09/16/2019 11:25 AM Signed [facility] G[facility] REGISTRY DOCUMENTATION (OUTSIDE TEAMLET) Provider Action/FYI: PSR Action/FYI: Last patient activity 09/02/2016 Last PCP visit 05/13/2016 I will call patient to verify PCP/schedule re-establish care appointment (if patient agreeable). Health Maintenance Due: BP CONTROLLED (<130/80) due on 1975 HEPATITIS C SCREENING due on 2001 SHINGRIX VACCINE(1 of 2) due on 2007 LDL CHOLESTEROL due on 04/28/2016 MAMMOGRAM due on 05/27/2016 ANNUAL PCP TEAM CHRONIC DISEASE VISIT due on 05/13/2017 DTAP,TDAP,TD(2 - Td) due on 03/24/2019 INFLUENZA(1) due on 04/14/2019 DIABETES SCREEN due on 04/25/2019 Patient identified by name and date of . Last BP/Labs: Blood Pressure: Last 3 Encounter BP Readings: Date: BP: 05/13/2016 138/70 05/03/2016 150/90 02/08/2016 110/74 Lipids: Cholesterol (no units) Date Value 04/28/2015 110 HDL Cholesterol Date Value 04/28/2015 67 11/19/2014 52 mg/dL LDL Cholesterol (no units) Date Value 04/28/2015 35 LDL Chol, [place] (mg/dL) Date Value 05/04/2012 148 03/04/2009 148 LDL Calculated (mg/dL) Date Value 11/19/2014 127 Triglyceride Date Value 04/28/2015 41 11/19/2014 84 mg/dL HGB A1C: Lab Results Component Value Date HBA1C 5.8 11/19/2014 TSH: No results found for: TSH) ? Patient has the following care gap registry disease diagnosis: not seen in 3 + years ? CAD ? HTN ? Hyperlipiedemia ? Patient has the following open care gaps: Health Maintenance Due: BP CONTROLLED (<130/80) due on 1975 HEPATITIS C SCREENING due on 2001 SHINGRIX VACCINE(1 of 2) due on 2007 LDL CHOLESTEROL due on 04/28/2016 MAMMOGRAM due on 05/27/2016 ANNUAL PCP TEAM CHRONIC DISEASE VISIT due on 05/13/2017 DTAP,TDAP,TD(2 - Td) due on 03/24/2019 INFLUENZA(1) due on 04/14/2019 DIABETES SCREEN due on 04/25/2019 ? Last office visit: 05/13/2016 ? Future office visit: Verify pcp/physical/re-est [facility] care ANT [facility] 09/16/2019 11:25 AM Signed [facility] HEALTH AND SAFETY TECHNICIAN OLIVIA Provider Action/FYI: 1st attempt - MyChart message sent. Patient identified by name and . ANT [facility] 09/16/2019 11:25 AM Signed [facility] HEALTH AND SAFETY TECHNICIAN OLIVIA Provider Action/FYI: 2nd attempt - Left message for patient to return call #[phone] Patient identified by name and . ANT [facility] 09/16/2019 11:25 AM Signed [facility] ASSISTANT OLIVIA Provider Action/FYI: Mary returned my call and states she's no longer getting care with Dr. Penaloza. Dr. Penaloza removed as PCP. Patient identified by name and . Silva Aviles FINANCIAL UNDERWRITER Allergies As of Date: 09/13/2019 Noted Allergy Reaction CODEINE 11/18/2008 9 - Itching LISINOPRIL 04/28/2014 3 - Cough Date Reviewed: 05/13/2016 Reviewed by: Allie See LPN - Fully Assessed Reason for Visit: PHMA/Care Gap Outreach [[id number]] Prescriptions as of 09/13/2019 Sig: LOSARTAN 25 MG TABLET Take 1 tablet by mouth twice * LORATADINE 10 MG TABLET Take 1 tablet by mouth once d* ATORVASTATIN 80 MG TABLET Take 1 tablet by mouth once d* ASPIRIN 81 MG TABLET,DELAYED * Take 1 tablet by mouth once d* CLOPIDOGREL 75 MG TABLET Take 75 mg by mouth once cheryl* METOPROLOL TARTRATE 25 MG TAB* Take 25 mg by mouth twice polly* Problem List As Of Date 09/13/2019 Noted Resolved CHR SOLAR SKIN DAMAGE NOS [L57.8] 05/05/2008 DYSCHROMIA OTHER///solar lentigenes [L81.9] 05/05/2008 SEBORRHEIC KERATOSIS NOS [L82.1] 05/05/2008 ACTINIC KERATOSIS [L57.0] 05/05/2008 Tobacco use disorder [F17.200] 03/12/2009 More... Essential hypertension, benign [I10] 03/04/2014 More... CAD (coronary artery disease) [I25.10] 11/21/2014 More... Mixed hyperlipidemia [E78.2] 11/12/2015 More... Encounter Status:Closed by SILVA AVILES CMA on 09/16/19 Normal [facility] PROGRESSon 09-13-2019 PROGRESS HNO ID: [id number] Author: Silva Aviles Service: ? Author Type: Cold Roll Operator Type: Progress Notes Filed: 09/16/2019 11:25 AM Note Text: [facility] HEALTH AND SAFETY TECHNICIAN QUICKNOTE Provider Action/FYI: 1st attempt - Lumenz message sent. Patient identified by name and . Silva Aviles CMA [facility] PROGRESS HNO ID: [id number] Author: Silva Aviles Service: ? Author Type: Cold Roll Operator Type: Progress Notes Filed: 09/16/2019 11:25 AM Note Text: [facility] GAP REGISTRY DOCUMENTATION (OUTSIDE TEAMLET) Provider Action/FYI: PSR Action/FYI: Last patient activity 09/02/2016 Last PCP visit 05/13/2016 I will call patient to verify PCP/schedule re-establish care appointment (if patient agreeable). Health Maintenance Due: BP CONTROLLED (<130/80) due on 1975 HEPATITIS C SCREENING due on 2001 SHINGRIX VACCINE(1 of 2) due on 2007 LDL CHOLESTEROL due on 04/28/2016 MAMMOGRAM due on 05/27/2016 ANNUAL PCP TEAM CHRONIC DISEASE VISIT due on 05/13/2017 DTAP,TDAP,TD(2 - Td) due on 03/24/2019 INFLUENZA(1) due on 04/14/2019 DIABETES SCREEN due on 04/25/2019 Patient identified by name and date of . Last BP/Labs: Blood Pressure: Last 3 Encounter BP Readings: Date: BP: 05/13/2016 138/70 05/03/2016 150/90 02/08/2016 110/74 Lipids: Cholesterol (no units) Date Value 04/28/2015 110 HDL Cholesterol Date Value 04/28/2015 67 11/19/2014 52 mg/dL LDL Cholesterol (no units) Date Value 04/28/2015 35 LDL Chol, [place] (mg/dL) Date Value 05/04/2012 148 03/04/2009 148 LDL Calculated (mg/dL) Date Value 11/19/2014 127 Triglyceride Date Value 04/28/2015 41 11/19/2014 84 mg/dL HGB A1C: Lab Results Component Value Date HBA1C 5.8 11/19/2014 TSH: No results found for: TSH) ? Patient has the following care gap registry disease diagnosis: not seen in 3 + years ? CAD ? HTN ? Hyperlipiedemia ? Patient has the following open care gaps: Health Maintenance Due: BP CONTROLLED (<130/80) due on 1975 HEPATITIS C SCREENING due on 2001 SHINGRIX VACCINE(1 of 2) due on 2007 LDL CHOLESTEROL due on 04/28/2016 MAMMOGRAM due on 05/27/2016 ANNUAL PCP TEAM CHRONIC DISEASE VISIT due on 05/13/2017 DTAP,TDAP,TD(2 - Td) due on 03/24/2019 INFLUENZA(1) due on 04/14/2019 DIABETES SCREEN due on 04/25/2019 ? Last office visit: 05/13/2016 ? Future office visit: Verify pcp/physical/re-est [facility] care Silva Aviles, ANT Normal [facility] Office Visit: UC: cough/marguerite estionon 05-09-2017 Documentation of current medications (procedure) Done Invalid Interpretation Code [facility] Work Phone: Fall risk assessment No Invalid Interpretation Code [facility] Work Phone: Tobacco use [facility]PH[facility] Former smoker Invalid Interpretation Code [facility] Work Phone: Lab Report: Lipid Profileon 04-18-2017 Cholesterol 146 mg/dL Invalid Interpretation Code [facility] Work Phone: HDL Cholesterol 88 mg/dL Invalid Interpretation Code [facility] Work Phone: LDL Cholesterol 50 mg/dL Invalid Interpretation Code 0-130 [facility] Work Phone: [phone] Triglyceride 39 mg/dL Invalid Interpretation Code [facility] Work Phone: [phone] very low density lipoproteins 8 mg/dL Invalid Interpretation Code 5-40 [facility] Work Phone: [phone] Lab Report: Liver Profileon 04-18-2017 Alanine aminotransferase (ALT) 28 U/L Invalid Interpretation Code 12-78 [facility] Work Phone: [phone] Albumin 3.7 g/dL Invalid Interpretation Code 3.4-5.0 [facility] Work Phone: [phone] Alkaline phosphatase (ALP) 75 U/L Invalid Interpretation Code 45-117 [facility] Work Phone: [phone] Aspartate aminotransferase (AST) 24 U/L Invalid Interpretation Code 15-37 [facility] Work Phone: [phone] Bilirubin (direct) 0.18 mg/dL Invalid Interpretation Code 0.00-0.30 [facility] Work Phone: [phone] Bilirubin (total) 0.70 mg/dL Invalid Interpretation Code 0.20-1.00 [facility] Work Phone: [phone] Globulin 3.2 g/dL Invalid Interpretation Code 2.3-3.5 [facility] Work Phone: [phone] Protein 6.9 g/dL Invalid Interpretation Code 6.4-8.2 [facility] Work Phone: [phone] Office Visiton 04-13-2017 Documentation of current medications (procedure) Done Invalid Interpretation Code [facility] Work Phone: [phone] Office Visit: [facility]: [place] Documentation of current medications (procedure) Done Invalid Interpretation Code [facility] Work Phone: Fall risk assessment No Invalid Interpretation Code [facility] Work Phone: Tobacco use CPHS Former smoker Invalid Interpretation Code [facility] Work Phone: Clinical Lists Update: Prelo dental nurse 09-30-2016 Left ventricular Ejection fraction 65 % Invalid Interpretation Code [facility] Work Phone: Clinical Lists Update: Strep Teston 08-19-2016 Rapid strep test Negative Invalid Interpretation Code [facility] Work Phone: Lab Report: Basic Metabolic Profile (BMP)on 06-08-2016 Anion gap 8 mmol/L Invalid Interpretation Code 5-15 [facility] Work Phone: [phone] BUN/Creatinine Ratio 17.2 RATIO Invalid Interpretation Code 10-20 [facility] Work Phone: [phone] Calcium 8.5 mg/dL Invalid Interpretation Code 8.5-10.1 [facility] Work Phone: [phone] Chloride 106 mmol/L Invalid Interpretation Code 98-107 [facility] Work Phone: [phone] CO2 29.0 mmol/L Invalid Interpretation Code 21.0-32.0 [facility] Work Phone: Creatinine 0.76 mg/dL Invalid Interpretation Code 0.55-1.20 [facility] Work Phone: eGFR (non-black) 101 mL/min/{1.73_m2} Invalid Interpretation Code >60 [facility] Work Phone: eGFR (non-black) 83 mL/min/{1.73_m2} Invalid Interpretation Code >60 [facility] Work Phone: Glucose 90 mg/dL Invalid Interpretation Code 70-110 [facility] Work Phone: Potassium 3.8 mmol/L Invalid Interpretation Code 3.5-5.1 [facility] Work Phone: [phone] Sodium 143 mmol/L Invalid Interpretation Code 136-145 [facility] Work Phone: [phone] Urea nitrogen 13 mg/dL Invalid Interpretation Code 7-18 [facility] Work Phone: Chart Maintenanceon 05-25-20 16 Cholesterol 128 mg/dL Invalid Interpretation Code [facility] Work Phone: HDL Cholesterol 74 mg/dL Invalid Interpretation Code [facility] Work [phone] LDL Cholesterol 47 mg/dL Invalid Interpretation Code [facility] Work Phone: Triglyceride 34 mg/dL Invalid Interpretation Code [facility] Work Phone: Lab Report: Lipid Profileon 10-23-2015 very low density lipoproteins 12 mg/dL Invalid Interpretation Code 5-40 [facility] Work Phone: Lab Report: Liver Profileon 10-23-2015 Alanine aminotransferase (ALT) 27 U/L Invalid Interpretation Code 12-78 [facility] Work Phone: Albumin 3.8 g/dL Invalid Interpretation Code 3.4-5.0 [facility] Work Phone: Alkaline phosphatase (ALP) 69 U/L Invalid Interpretation Code 50-136 [facility] Work Phone: Aspartate aminotransferase (AST) 16 U/L Invalid Interpretation Code 15-37 [facility] Work Phone: Bilirubin (direct) 0.19 mg/dL Invalid Interpretation Code 0.00-0.30 [facility] Work Phone: Bilirubin (total) 0.70 mg/dL Invalid Interpretation Code 0.20-1.00 [facility] Work Phone: Globulin 3.1 g/dL Invalid Interpretation Code 2.3-3.5 [facility] Work Phone: Protein 6.9 g/dL Invalid Interpretation Code 6.4-8.2 [facility] Work Phone: Lab Report: T4 Total, Thyrox inon 04-28-2015 Thyroxine (T4) 9.6 ug/dL Invalid Interpretation Code 4.8-13.9 [facility] Work Phone: Lab Report: Thyroid Stim Hor star (TSH)on 04-28-2015 Thyroid stimulating hormone (TSH) 2.03 u[iU]/mL Invalid Interpretation Code 0.358-3.74 [facility] Work Phone: Office Visiton 03-31-2015 Smoking cessation education (procedure) yes Invalid Interpretation Code [facility] Work Phone: External Other: Preferred Me thod of Contacton 12-02-2014 Patient's prefered method of contact secmsg Invalid Interpretation Code [facility] Work Phone: Office Visiton 12-01-2014 cardiac risk group C Invalid Interpretation Code [facility] Work Phone: General cardiovascular disease 10Y risk [#] Jeanerette.D'Agostino N/A Invalid Interpretation Code [facility] Work Phone: Replaced Document: Yodit Almazan CG Observationson 12-01-2014 electrocardiogram interpretation Sinus Rhythm Low voltage in precordial leads. -RSR(V1) -nondiagnostic. - Negative T-waves May be normal -consider acute process. ABNORMAL Invalid Interpretation Code [facility] Work Phone: GE use only - for LinkLogic import when terms are not otherwise specified 429 ms Invalid Interpretation Code [facility] Work Phone: P wave axis, electrocardiogram 51 deg Invalid Interpretation Code [facility] Work Phone: MN interval, electrocardiogram 136 ms Invalid Interpretation Code [facility] Work Phone: Pulse (Heart Rate) 72 /min Invalid Interpretation Code [facility] Work Phone: QRS axis, electrocardiogram 42 deg Invalid Interpretation Code [facility] Work Phone: QRS duration, electrocardiogram 86 ms Invalid Interpretation Code [facility] Work Phone: QT interval, electrocardiogram new path ms Invalid Interpretation Code [facility] Work Phone: T wave axis, electrocardiogram 90 deg Invalid Interpretation Code [facility] Work Phone: Clinical Lists Update: Prelo dental nurse 11-18-2014 Hematocrit (HCT) 41.0 % Invalid Interpretation Code [facility] Work Phone: Hemoglobin (HGB) 13.9 g/dL Invalid Interpretation Code [facility] Work Phone: Platelets 215 10*3/mm3 Invalid Interpretation Code [facility] Work Phone: WBC (Leukocytes) 5.9 10*3/uL Invalid Interpretation Code [facility] Work Phone: Vital Signs Date Time Vital Sign Value Performing Clinician Irlanda lemons 06-10-2024 14:290400 Body height 175.3 cm [facility] Swing Type Lathe Operator [facility] 06-10-2024 14:29-0400 Body mass index (BMI) [Ratio] 24.75 kg/m2 [facility] Cardiovascular Swing Type Lathe Operator [facility] 06-10-2024 14:290400 Body weight 76.02 kg [facility] Cardiovascular Swing Type Lathe Operator [facility] 06-10-2024 14:-0400 Diastolic blood pressure 92 mm[Hg] [facility] Cardiovascular Swing Type Lathe Operator [facility] 06-10-2024 14:29-0400 Heart rate 64 /min [facility] Cardiovascular Swing Type Lathe Operator [facility] 06-10-2024 14:29-0400 Systolic blood pressure 134 mm[Hg] [facility] Cardiovascular Swing Type Lathe Operator [facility] 06-22-2023 11:36-0500 Body height 177.8 cm [facility] Short ASSET MANAGEMENT ANALYST-MAIL CLERKS SUPERVISOR Work Phone: [facility] 06-22-2023 11:36-0500 Body mass index (BMI) [Ratio] 23.17 kg/m2 [facility] Short ASSET MANAGEMENT ANALYST-MAIL CLERKS SUPERVISOR Work Phone: [facility] 06-22-2023 11:36-0500 Body weight 73.26 kg [facility] Short ASSET MANAGEMENT ANALYST-MAIL CLERKS SUPERVISOR Work Phone: [facility] 06-22-2023 11:36-0500 Diastolic blood pressure 80 mm[Hg] [facility] Short ASSET MANAGEMENT ANALYST-MAIL CLERKS SUPERVISOR Work Phone: [facility] 06-22-2023 11:36-0500 Heart rate 67 /min [facility] Short ASSET MANAGEMENT ANALYST-MAIL CLERKS SUPERVISOR Work Phone: [facility] 06-22-2023 11:36-0500 SaO2% (BldA) [Mass fraction] 99 % [facility] Short ASSET MANAGEMENT ANALYST-MAIL CLERKS SUPERVISOR Work Phone: [facility] 06-22-2023 11:36-0500 Systolic blood pressure 150 mm[Hg] Ole Dorado APRN-MAIL CLERKS SUPERVISOR Work Phone: [facility] 06-21-2022 14:38-0500 Body height 176.5 cm Simone Fritz DO Work Phone: [facility] 06-21-2022 14:38-0500 Body mass index (BMI) [Ratio] 23.65 kg/m2 Simone Fritz DO Work Phone: [facility] 06-21-2022 14:38-0500 Body weight 73.71 kg Simone Fritz DO Work Phone: [facility] 06-21-2022 14:38-0500 Diastolic blood pressure 72 mm[Hg] Simone Fritz DO Work Phone: [facility] 06-21-2022 14:38-0500 Heart rate 65 /min Simone Fritz DO Work Phone: [facility] 06-21-2022 14:38-0500 Systolic blood pressure 122 mm[Hg] Simone Fritz DO Work Phone: [facility] 05-09-2017 10:27-0400 BMI (Body Mass Index) 22.96 kg/m2 Cathryn Huong MCINTOSH [facility] Work Phone: 05-09-2017 10:27-0400 Body Temperature 97 [degF] Cathryn Huong PAZN [facility] Work Phone: 05-09-2017 10:27-0400 BP Diastolic 84 mm[Hg] Cathryn Huong [facility] Work Phone: 05-09-2017 10:27-0400 BP Systolic 122 mm[Hg] Cathryn Reynosotheresa [facility] Work Phone: 05-09-2017 10:27-0400 Height 177.8 cm Cathryn Borja LPN [facility] Work Phone: 05-09-2017 10:27-0400 Pulse (Heart Rate) 87 /min Cathryn Borja LPN [facility] Work Phone: 05-09-2017 10:27-0400 Respiratory Rate 16 /min Cathryn Borja LPN [facility] Work Phone: 05-09-2017 10:27-0400 Weight 72.58 kg Cathryn Borja LPN [facility] Work Phone: 04-13-2017 14:10-0400 BMI (Body Mass Index) 22.96 kg/m2 [facility] Work Phone: 04-13-2017 14:10-0400 BP Diastolic 62 mm[Hg] [facility] Work Phone: 04-13-2017 14:10-0400 BP Systolic 126 mm[Hg] [facility] Work Phone: 04-13-2017 14:10-0400 Height 177.8 cm [facility] Work Phone: 04-13-2017 14:10-0400 Pulse (Heart Rate) 68 /min [facility] Work Phone: 04-13-2017 14:10-0400 Respiratory Rate 18 /min [facility] Work Phone: 04-13-2017 14:10-0400 Weight 72.58 kg [facility] Work Phone: 02-17-2017 11:30-0400 BMI (Body Mass Index) 23.01 kg/m2 Amber Pineda [facility] Work Phone: 02-17-2017 11:30-0400 Body Temperature 97.7 [degF] Amber Pineda [facility] Work Phone: 02-17-2017 11:30-0400 BP Diastolic 70 mm[Hg] Amber Pineda LPN [facility] Work Phone: 02-17-2017 11:30-0400 BP Systolic 130 mm[Hg] Amber Pineda LPN [facility] Work Phone: 02-17-2017 11:30-0400 Height 177.8 cm Amber Pineda LPN [facility] Work Phone: 02-17-2017 11:30-0400 Pulse (Heart Rate) 70 /min Amber Pineda LPN [facility] Work Phone: 02-17-2017 11:30-0400 Weight 72.76 kg Amber Pineda LPN [facility] Work Phone: 10-03-2016 12:46-0500 BSA (Body Surface Area) 1.89 m2 Amber Pineda LPN [facility] Work Phone: 10-03-2016 12:46-0500 Respiratory Rate 18 /min Amber Pineda LPN [facility] Work Phone: 08-19-2016 13:36-0500 Height 177.8 cm Amber Pineda LPN [facility] Work Phone: 08-19-2016 13:36-0500 Weight 72.45 kg Amber Pineda LPN [facility] Work Phone: Encounters Encounter Date Encounter Type Care Provider Facility Start: 06-10-2024 End: 06-10-2024 Office outpatient visit 25 minutes Sasha Willard ASSET MANAGEMENT [employer] Work Phone: [facility] [place] Comment on above: Right bundle branch block (Primary Dx); Coronary artery disease involving [place] coronary artery of [place] heart without angina pectoris; Essential hypertension, benign; Mixed hyperlipidemia Start: 06-10-2024 ambulatory ARSENIO santana:[facility] Start: 06-22-2023 End: 06-22-2023 Office outpatient visit 15 minutes Ole Dorado ASSET MANAGEMENT ANALYST-MAIL CLERKS SUPERVISOR Work Phone: [facility] [place] Comment on above: Coronary artery dise ase involving [place] coronary artery of [place] heart without angina pectoris (Primary Dx); Essential hypertension; Mixed hyperlipidemia Start: 06-22-2023 ambulatory [facility] Facility:[facility] Start: 06-21-2022 End: 06-21-2022 Office outpatient new 60 minutes Simone Fritz DO Work Phone: [facility] [place] Comment on above: Coronary artery dise ase involving [place] coronary artery of [place] heart without angina pectoris (Primary Dx); Essential hypertension, benign; Mixed hyperlipidemia Procedures Date Procedure Procedure Detail Performing Clinician [...] End: 08-19-2016 Strep a assay w/optic [facility] Work Phone: Start: 06-08-2016 End: 06-08-2016 *BMP [...] MD Work Phone: Start: 03-31-2015 End: 03-31-2015 МАРИЯ Oconnell MD Work Phone: Start: 03-31-2015 End: [...] MD Work Phone: Start: 12-01-2014 End: 12-01-2014 DJN Jimy Oconnell MD Work Phone: Start: 12-01-2014 [...] Author Start: 05-07-2028 Tetanus vaccination TETANUS [facility] Start: 05-23-2025 End: 05-23-2025 Patient encounter procedure 05/23/2025 2:00 PM EDT [facility] [address] [phone] [facility] Start: 05-29-2024 End: 05-29-2024 Patient encounter procedure 05/29/2024 2:00 PM EDT Office Visit [facility] [address] [phone] Ole Dorado APRN-MAIL CLERKS SUPERVISOR [address] [place] [id number] [facility] Start: 04-14-2024 COVID-19 VACCINE () COVID-19 VACCINE () [facility] Start: 06-27-2023 End: 06-27-2023 Patient encounter procedure 06/27/2023 Office Visit Cardiovascular Medicine Simone Fritz, DO [address] [place] [phone] [facility] Start: 10-30-2017 End: 10-30-2017 Appointment Appointment [facility] Work Phone: Start: 10-16-2017 End: 04-21-2017 *Hepatic Function Panel *Hepatic Function Panel [facility] Work Phone: Start: 10-16-2017 End: 04-21-2017 Lipid panel [AGGREGATE] *Lipid Profile CC PCP [facility] Work Phone: Start: 2017 RSV VACCINE (1 - 1-d ose 60+ series) RSV VACCINE (1 - 1-dose 60+ series) [facility] Start: 04-13-2017 End: 04-13-2017 Appointment Appointment [facility] Work Phone: Start: 04-13-2017 End: 04-18-2017 *Hepatic Function Panel *Hepatic Function Panel [facility] Work Phone: Start: 04-13-2017 End: 04-13-2017 МАРИЯ HSIEH [facility] Work Phone: Start: 04-13-2017 End: 04-13-2017 Follow Up Appt 6 months Follow Up Appt 6 months [facility] Work Phone: Start: 04-13-2017 End: 04-18-2017 Lipid panel [AGGREGATE] *Lipid Profile CC PCP [facility] Work Phone: Start: 04-06-2017 End: 04-06-2017 Appointment Appointment [facility] Work Phone: Start: 02-17-2017 End: 02-17-2017 Appointment Appointment [facility] Work Phone: Start: 10-23-2016 End: 06-09-2016 *Hepatic Function Panel *Hepatic Function Panel [facility] Work Phone: Start: 10-23-2016 End: 06-09-2016 Lipid panel [AGGREGATE] *Lipid Profile CC PCP [facility] Work Phone: Start: 10-03-2016 End: 10-03-2016 МАРИЯ HSIEH [facility] Work Phone: Start: 10-03-2016 End: 10-03-2016 Follow Up Appt 6 months Follow Up Appt 6 months [facility] Work Phone: Start: 06-08-2016 End: 06-08-2016 *BMP *BMP [facility] Work Phone: Start: 06-08-2016 End: 06-08-2016 Follow Up BP Check Follow Up BP Check [facility] Work Phone: Start: 05-06-2016 End: 05-06-2016 МАРИЯ HSIEH [facility] Work Phone: Start: 05-06-2016 [...] Lipid panel [AGGREGATE] *Lipid Profile CC PCP [facility] Work Phone: Start: 10-06-2015 End: 10-23-2015 *Hepatic Function Panel *Hepatic Function Panel [facility] Work Phone: Start: 10-06-2015 End: 10-06-2015 ETSIVENLester ESTIVENN [facility] Work Phone: Start: 10-06-2015 End: 10-06-2015 Follow Up Appt 1 year Follow Up Appt 1 year [facility] Work Phone: Start: 10-06-2015 End: 10-23-2015 Lipid panel [AGGREGATE] *Lipid Profile CC PCP [facility] Work Phone: Start: 06-12-2015 End: 10-06-2015 *Hepatic Function Panel *Hepatic Function Panel [facility] Work Phone: Start: 06-12-2015 End: 10-06-2015 Lipid panel [AGGREGATE] *Lipid Profile CC PCP [facility] Work Phone: Start: 03-31-2015 End: 03-31-2015 МАРИЯ ESTIVENLester [facility] Work Phone: Start: 03-31-2015 End: 03-31-2015 Echocardiography Echocardiogram (complete) [facility] Work Phone: Start: 03-31-2015 End: 03-31-2015 Follow Up Appt 6 months Follow Up Appt 6 months [facility] Work Phone: Start: 03-31-2015 End: 04-28-2015 Thyroid stimulating hormone (TSH) *TSH [facility] Work Phone: Start: 03-31-2015 End: 04-28-2015 Thyroxine (T4) *T4 (Total) [facility] Work Phone: Start: 12-15-2014 End: 12-11-2014 *Hepatic Function Panel *Hepatic Function Panel [facility] Work Phone: Start: 12-15-2014 End: 12-02-2014 Lipid panel [AGGREGATE] *Lipid Profile CC PCP [facility] Work Phone: Start: 12-01-2014 End: 12-01-2014 Cardiac Rehab Cardiac Rehab [facility] Work Phone: Start: 12-01-2014 End: 12-01-2014 МАРИЯ ESTIVENLester [facility] Work Phone: Start: 12-01-2014 End: 12-01-2014 Echocardiography Echocardiogram (complete) [facility] Work Phone: Start: 12-01-2014 End: 12-01-2014 Electrocardiogram, complete EKG (In office) [facility] Work Phone: Start: 12-01-2014 End: 12-01-2014 Follow Up Appt 4 months Follow Up Appt 4 months [facility] Work Phone: Start: 11-25-2014 End: 12-01-2014 Cardiac Rehab Cardiac Rehab [facility] Work Phone: Start: 2002 Screening for malign ant neoplasm of colon COLORECTAL CANCER SCREENING DISCUSSION [facility] Start: 1997 Lipid panel LIPID SCREENING [facility] Start: 1997 Screening for malign ant neoplasm of breast MAMMOGRAM SCREENING DISCUSSION [facility] Start: 1978 Screening for malign ant neoplasm of cervix CERVICAL CANCER SCREENING DISCUSSION [facility] Start: 1972 HIV screening HIV SCREENING DISCUSSION [facility] Start: 04-07-1958 COVID-19 VACCINE (#1) COVID-19 VACCI NE (#1) [facility] Start: 1957 Hepatitis C screening HEPATITI S C VIRUS SCREENING [facility] Start: 1957 Potassium [Moles/vol ume] in Serum or Plasma POTASSIUM [facility] Start: 1957 Screening for osteoporosis DEXA SCAN DISCUSSION [facility] Ambulatory ECG MN ECG (OFFICE R EAD ONLY) [place] - OFFICE PERFORMED Routine Coronary artery disease involving [place] coronary artery of [place] heart without angina pectoris Essential hypertension, benign Mixed hyperlipidemia Ordered: 06/21/2022 [facility] Comment on above: Ordered: 06/21/2022 Patient Education [facility] Work Phone: Payers Date Payer Category Payer Private Health Insurance [employer]JEEV [employer]K [id number] 2023-Present [address] J[place] RAMIREZ [id number] 2023 Private Health Insurance [id number] 2019 Unknown [facility] ACCESS [id number] 2019-Present [address] [address] [place] [address] [id number] 1957 Unknown [id number] 1957 Unknown [id number] Social History Date Type Detail Facility Start: 06-21-2022 Tobacco smoking stat [facility] Never smoked tobacco [facility] Start: 06-21-2022 Tobacco use and exposure Smokeless tobacco non-user [facility] Start: 06-21-2022 End: 06-10-2024 Alcohol intake Current drinker of alcohol (finding) [facility] Start: 06-21-2022 Alcohol Comment 1 [facility] Start: 1955 Sex Assigned At Not on file O JENKINS [facility] Start: 06-22-2023 End: 06-10-2024 History of Social function [facility] Start: 06-22-2023 End: 06-10-2024 Tobacco use panel [facility] History of Present illness Narrative 06-10-2024 Sasha Willard APRN-YANETH - 06/10/2024 3:00 PM EDT Note Date & Type Note Facility 06-10-2024 History of Present illness Narrative Ms. Valdez, is a 68 y.o. female who presented 06/10/2024 at the [facility] [place] for a follow up visit. She has a history of CAD/STEMI 11/2014 s/p MLAD PCI RENY, RBBB, HTN, HLD. Last visit at [facility] Cardiology was 06/22/2023 with Ole Dorado CNP, at which time she was feeling well without cardiac concerns. History of Present Illness At today's visit, the patient reports feeling well overall. She denies chest pain, shortness of breath, lightheadedness, palpitations, syncope or swelling. 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 Her blood pressure readings have been elevated recently, around 135/80. Prior to her colonoscopy at [facility] in spring 2023, her anesthesia team requested a cardiac workup including stress test, LHC. Records not available but will request. Per patient, stress test was abnormal so a LHC ws ordered. The LHC showed stable coronary arteries and patent stent. Review of Systems Constitutional: Negative for activity change and fatigue. Respiratory: Negative for chest tightness and shortness of breath. Cardiovascular: Negative for chest pain and palpitations. Neurological: Negative for syncope and light-headedness. All other systems reviewed and are negative. Physical Exam Vitals and nursing note reviewed. Constitutional: Appearance: Normal appearance. Neck: Vascular: No carotid bruit. Cardiovascular: Rate and Rhythm: Normal rate and regular rhythm. Pulses: Normal pulses. Heart sounds: Normal heart sounds. Pulmonary: Effort: Pulmonary effort is normal. Breath sounds: Normal breath sounds. Musculoskeletal: Right lower leg: No edema. Left lower leg: No edema. Skin: General: Skin is warm and dry. Neurological: General: No focal deficit present. Mental Status: She is alert and oriented to person, place, and time. Psychiatric: Mood and Affect: Mood normal. Behavior: Behavior normal. Vitals: 06/10/24 1429 BP: (!) 134/92 Pulse: 64 Weight: 76 kg (167 lb 9.6 oz) Height: 1.753 m (5' 9 ) Wt Readings from Last 3 Encounters: 06/10/24 76 kg (167 lb 9.6 oz) 06/22/23 73.3 kg (161 lb 8 oz) 06/21/22 73.7 kg (162 lb 8 oz) Body mass index is 24.75 kg/m . Current Outpatient Medications Medication Sig aspirin 81 MG Chew Tab chewable tablet Chew 1 tablet daily. atorvastatin 80 MG tablet Take 1 tablet by mouth at bedtime. hydroCHLOROthiazide 25 MG tablet Take 1 tablet by mouth daily. Losartan 50 MG tablet Take 1 tablet by mouth daily. Metoprolol 25 MG tab regular release Take 1 tablet by mouth 2 times daily. Multiple Vitamins-Minerals (WOMENS MULTI PO) Take by mouth. tiZANidine 4 MG tablet Take 1 tablet by mouth every 6 hours as needed for Muscle spasms. Vitamin D-Vitamin K (D3 + K2 DOTS PO) Take by mouth. Takes QOD Review Of Tests and Records: ELVIRA 2019 no evidence of ischemia, METS 10.1 TTE 2019 normal biV function, impaired relaxation, no significant valve disease [facility] 11/2014 s/p PCI RENY x1 mLAD, moderate disease distally w/o intervention ECG 06/21/2022 NSR at 65 bpm w RBBB ASSESSMENT/PLAN: Assessment & Plan Coronary artery disease - [facility] 11/2014 s/p PCI RENY x1 mLAD, moderate disease distally w/o intervention - [facility] at [facility] 09/2023 reportedly stable, records requested - Appears stable, asymptomatic at today's visit - Risk factor modification: control weight and diet, exercise regularly. Control HTN and HLD. - Continue metoprolol tartrate, atorvastatin, aspirin. Increase Losartan from 50mg daily to 100mg daily. RBBB - ECG 06/21/2022 NSR at 65 bpm w RBBB Hypertension BP Readings from Last 3 Encounters: 06/10/24 (!) 134/92 06/22/23 150/80 06/21/22 122/72 - BP at home usually <130/80, monitors regularly - Encouraged low sodium diet, exercise, weight control, stress/anxiety management, avoid NSAIDS - Continue hydrochlorothiazide, metoprolol tartrate. Increase Losartan from 50mg daily to 100mg daily. Hyperlipidemia - Outside labs 05/14/2024 TC 167, TG 59, HDL 91, LDL 64 - Encouraged low saturated fat diet, regular moderate intensity exercise 150 mins/week - Continue atorvastatin, Aspirin Follow up in one year, sooner should need arise. documented in this encounter [facility] History of Present illness Narrative 11-09-2023 Ole oDrado, ASSET MANAGEMENT ANALYST-MAIL CLERKS SUPERVISOR - 06/22/2023 12:00 PM EST Note Date & Type Note Facility 06-22-2023 History of Present illness Narrative , is a 67 y.o. female who presented 06/22/2023 at the [facility] [place]. Mary has a medical history of CAD/STEMI [...] Takes QOD Review Of Tests and Records: 2019 no evidence of ischemia, METS 10.1 TTE 2019 normal biV function, impaired relaxation, no significant valve disease [facility] 11/2014 s/p PCI RENY x1 mLAD, moderate disease distally w/o intervention ASSESSMENT/PLAN: * CAD - S/p STEMI PCI 2014 - 2019 no evidence of ischemia, METS 10.1 - TTE 2019 normal biV function, impaired relaxation, no significant valve disease - [facility] 11/2014 s/p PCI RENY x1 mLAD, moderate [...] one year documented in this encounter [facility] History of Present illness Narrative 06-21-2022 Teresa Akers MA - 06/21/2022 2:30 PM ESTSimone Fritz DO - 06/21/2022 2:30 PM EST Note Date & Type Note Facility 06-21-2022 History of Present illness Narrative 12 Lead EKG performed per provider's order, per policy, and given to Dr. Fritz for interpretation. HISTORY It was my privilege to see Ms. Mary Valdez at [facility] [place] on 06/21/2022 for her CAD. She is a 66 y.o. female hx CAD/STEMI 11/2014 s/p mLAD PCI RENY, HTN, HLP, presenting here to re-establish with cardiology. She denies any CP, SOB, orthopnea/PND, worsening LE edema, palpitations, syncope. 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 She reports [...] MEDICAL HISTORY Past Medical History: Diagnosis Date VT (myocardial infarction) Migraine PAST SOCIAL HISTORY Social [...] erythema: Skin: No jaundice or rash Neuro: superintendent tests grossly intact. Strength grossly equal in muscle groups of the bilateral UEs and LEs. Psych: appropriate affect and cognition LABS AND TEST RESULTS No results found for: CHOLESTEROL, TRIG, HDL, LDLCALC No results found for: ALT, GLUCOSE, HGBA1C, TSH No results found for: SODIUM, POTASSIUM, CHLORIDE, CO2, BUN, CREATSERUM, GLUCOSE Reviewed all testing and notes from 2014 to 10/2021 [facility] 11/2014 - s/p PCI RENY x 1 mLAD; moderate disease distally without intervention. TTE 2018 - normal biV function, impaired relaxation, no significant valve disease ELVIRA 2019 - no evidence of ischemia, 10.1 METs ASSESSMENT AND PLAN In summary, Ms. Mary Valdez is a 66 y.o. female with hx [...] brought with her as described above. Reviewed [facility] film of her mLAD post-PCI that appears [...] contact me. Respectfully yours, Simone Fritz DO, [facility] Window Clerk of Clinical Internal Medicine documented in this encounter [facility] Evaluation note Note Date & Type Note Facility Evaluation note Diagnosis Coronary artery disease involving [place] coronary artery of [place] heart without angina pectoris- Primary Essential hypertension, benign Mixed hyperlipidemia documented in this encounter [facility] Evaluation note Note Date & Type Note Facility Evaluation note Diagnosis Coronary artery disease involving [place] coronary artery of [place] heart without angina pectoris- Primary Essential hypertension Unspecified essential hypertension Mixed hyperlipidemia documented in this encounter [facility] Evaluation note Note Date & Type Note Facility Evaluation note Diagnosis Right bundle branch block- Primary Coronary artery disease involving [place] coronary artery of [place] heart without angina pectoris Essential hypertension, benign Mixed hyperlipidemia documented in this encounter [facility] Summary Purpose Family History No Family History Records FoundNo Family History Records Found Advance Directives No Advanced Directives Records FoundNo Advanced Directives Records Found Additional Source Comments INFORMATION SOURCE (unrecogn ized section and content) DATE CREATED AUTHOR 09/05/2020 [facility] DATE CREATED AUTHOR AUTHOR'S ORGANIZ ATION 06/11/2024 [facility] Reason for Visit (unrecogniz ed section and content) Reason Comments Heart Problem Patient presents in cardiology today. She sees a feather renovator at [facility]. She is retiring and here to establish care at [facility]. H/O VT in 2014. Reason Comments Follow-up 1 yr visit, pt state s she is feeling well with no real issues, pt states she was having some issues with vertigo in January and got some paperwork from a doctor there and would like you to read over it Reason Comments Follow-up 1 year follow up- De nies any cardiac symptoms Care Teams (unrecognized sec tion and content) Larry Car Operator Relationship Specialty Start Date End Date Arsenio Gastelum MD [address] [place] [id number] PCP - General 06/16/23 Larry Car Operator Relationship Specialty Start Date End Date Arsenio Gastelum MD [address] [place] [address] PCP - General 06/16/23 FOR RECORDS PERTAINING TO PATIENTS WHO ARE [...] BE BASED ON THE PRIMARY CLINICAL RECORDS. [facility] provides no warranty or guarantee of the accuracy or completeness of information in this document.
== END | disposition home or self-care (01) ==
LOC: OPBD 09:17
PROVIDERS: PCP Family Medicine; Referring Provider Family Medicine; Visit Provider Family Medicine
DX: Z13.820 Encounter for screening for osteoporosis (principal); Z78.0 Asymptomatic menopausal state
CPT/HCPCS: 77080

== ENCOUNTER → 2024-06-24 | Outpatient (CLI) | payer OTHER, SELFPAY ==
[2024-06-24 12:02] LABS: Ionized Calcium 5.23 mg/dL (4.36-5.20)
[2024-06-24 12:10] LABS: PTHIN 40.5 pg/mL (18.4-80.1)
[2024-06-24 12:37] LABS: Ionized Calcium Order ORDER TUBE
[2024-06-24 12:38] LABS: Anion Gap 5 (5-15); BUN 20 mg/dL (7-18); Calcium,Total 9.5 mg/dL (8.5-10.1); Chloride 108 mmol/L (98-107); Creatinine, Serum 0.95 mg/dL (0.55-1.02); EST Glomerular Filtration Rate 62 mL/min (>60); Est Glom Filt Rate - Afr Amer 75 mL/min (>60); Glucose 99 mg/dL (74-106); Magnesium 2.1 mg/dL (1.6-2.6); Phosphorus 4.4 mg/dL (2.5-4.9); Potassium 4.1 mmol/L (3.5-5.1); Sodium Level 141 mmol/L (136-145)
== END | disposition home or self-care (01) ==
LOC: LAB 11:31
PROVIDERS: PCP Family Medicine; Referring Provider Family Medicine; Visit Provider Family Medicine
DX: M81.0 Age-related osteoporosis without current pathological fracture (principal)
CPT/HCPCS: 80048; 82330; 82652; 83735; 83970; 84100; 84443

== ENCOUNTER → 2025-01-21 | Outpatient (CLI) | payer MEDICARE, SELFPAY ==
--- OUTSIDE RECORDS SUMMARY | 2025-01-21 06:35 | XMS RPT_ITS | CCD ---
Author Organization [facility] Care Team Providers Care Intranet Support Name Role Phone Cathryn Borja LPN N Unavailable [phone] NANCI Mccann, Fanny Sauceda Unavailable Unavailmelissa Mccann RN, Fanny Sauceda Unavailable Unavailabl e DeFinis, Harumi Y Unavailable Unavailable Emerita Shultzi Unavailable Unavailable Pineda DAYNA, Amber E Unavailable Unavailable Edwin MCINTOSH, Amber E Unavailable Unavailable Dr. Kaushal Gastelum Primary Care Provider Dr. Kaushal Gastelum Referring Provider Ruel MIXING PLANT DUMPER, MIXING PLANT DUMPER-C Emilia Buck Attending Provider Unavailable Primary Care Provider Arsenio Ford MD Primary Care Provider Dr. Kaushal Gastelum Primary Care Provider María Mayers Attending Provider Unavailable Dr. Kaushal Gastelum Referring Provider AGNES Saavedra Attending Provider AGNES Saavedra Referring Provider AGNES Saavedra Other Provider Dr. Deborah Noland Attending Provider Dr. Kaushal Gastelum Primary Care Provider [phone] Dr. Deborah Noland Attending Provider AGNES Saavedra Referring Provider Ranney, Dr. Kaushal Referring Provider AGNES Saavedra Attending Provider AGNES Saavedra Other Provider [phone] María Mayers Attending Provider Unavailable Friend, Dr. Faustin Attending Provider Friend, Dr. Faustin Other Provider [phone] MELINDA DORADO Attending Unavailable SELF, SELF Referring Unavailable RANNEY, CHRISTOPHER B Primary Care Unavailabl e RANNEY, CHRISTOPHER B Referring Unavailabl e RANNEY, CHRISTOPHER B Primary Care Unavailabl e Ranney, Christopher Primary Care Unavailable Friend, Ramin Referring Unavailable FriendRamin Attending Unavailable Ranney, Christopher Primary Care Unavailable Assessment, Health Risk Referring Unavaila ble Assessment, Health Risk Attending Unavaila ble Ranney, Christopher Primary Care Unavailable Nagajothi, Nagapradee Referring Unavailabl e Nagaalyssa, Skylaradee Attending Unavailabl e Ranney, Christopher Primary Care Unavailable María Mayers Attending Unavailable FriendRamin Consulting Unavailable Ranney, Christopher Primary Care Unavailable Ranney, Christopher Referring Unavailable Friend, Ramin Attending Unavailable Ranney, Christopher Primary Care Unavailable NagReynaldo haydenapradee Attending Unavailabl Ling Sandoval Consulting Unavail able Ling Saavedra Referring Unavail able Best [employer] Attending Unavailable Ranney, Christopher Primary Care Unavailable Ranney, Christopher Referring Unavailable Ranney, Christopher Primary Care Unavailable Ranney, Christqueer Referring Unavailable Ling Saavedra Attending Unavail able Ranney, Christopher Primary Care Unavailable Skylar Nolandadeheber Attending Unavailabl Ling Sandoval Referring Unavail able Ranney, Christopher Primary Care Unavailable Ling Saavedra Attending Unavail able Lign Saavedra Referring Unavail able RanneyArsenio Attending Unavailable Ranney, Christopher Primary Care Unavailable Ranney, Christopher Referring Unavailable Ranney, Christqueer Attending Unavailable Ranney, Christopher Primary Care Unavailable Ranney, Christopher Referring Unavailable Ranney, Christqueer Attending Unavailable Ranney, Christopher Primary Care Unavailable Ranney, Christopher Referring Unavailable Arsenio Gastelum Primary Care Unavailable Ling Saavedra Attending Unavail able Ling Saavedra Referring Unavail able Arsenio Gastelum Primary Care Unavailable Arsenio Gastelum Referring Unavailable Friend, Ramin Attending Unavailable Allergies Allergy Classification Reported Allergen(s) Allergy Type Date of Onset Reaction(s) Facility (13 sources) lisinopril; Translations: [lisinopril] drug allergy 11-25-2014 Cough [facility] Work Phone: (8 sources) Codeine Drug Allergy 03-25-2022 Itching [facility] (1 source) Codeine Drug Allergy 11-02-2023 [facility] Repository Medications Current Medications Medication Drug Class(es) Dates Sig (Normalized) Sig (Original) aspirin 81 mg chewable tablet (20 sources) Nonsteroidal Anti-inflammatory Drug Start: 06-21-2022 aspirin 81 MG Chew Tab chewable tablet Indications: 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 06/21/2022 Active Start: 12-09-2020 Aspirin (Adult Low Dose Aspirin) 81 mg tablet,delayed release (DR/EC) Active 81 MG PO every other day December 09, 2020 10:59am Alternates plavix and aspirin Start: 10-29-2017 End: 12-09-2020 Aspirin (Adult Low Dose Aspi rin) 81 mg tablet,delayed release (DR/EC) Active 81 MG PO DAILY December 09, 2020 10:59am Start: 11-25-2014 take 1 tablet by hawa th once daily ASPIRIN 325 MG TABS One tablet by mouth daily ASPIRIN [id number] Fanny Mccann RN Start: 11-25-2014 take 1 tablet by hawa th once daily ASPIRIN 81 MG TABS One tablet by mouth daily ASPIRIN [id number] Jimy Oconnell MD Start: 11-25-2014 take 1 tablet by hawa th once daily ASPIRIN 81 MG TABS One tablet by mouth daily ASPIRIN [id number] Jimy Oconnell MD Start: 11-25-2014 take 1 tablet by hawa th once daily ASPIRIN EC 81 MG TBEC One tablet by mouth daily ASPIRIN [id number] Ling Albarran RN atorvastatin 80 mg oral tablet (20 sources) HMG-CoA Reductase Inhibitor Start: 10-03-2023 End: 06-10-2024 take 1 tablet by mouth at bedtime atorvastatin 80 MG tablet Take 1 tablet by mouth at bedtime. 90 tablet 2 06/10/2024 Active Start: 11-25-2014 End: 10-25-2021 take 80 mg by mouth at bedtime Atorvastatin Discontinu ed 80 MG PO AT BEDTIME April 21, 2021 4:42pm October 25, 2021 9:27am hydroCHLOROthiazide 25 mg oral tablet (20 sources) Thiazide Diuretic Start: 11-11-2021 End: 04-19-2022 take 25 mg by mouth once daily Hydrochlorothiazide Active 25 MG PO DAILY April 19, 2022 11:55am Start: 10-29-2017 End: 05-20-2020 take 12.5 mg by mouth once daily in the morning Hydrochlorothiazide Discontinued 12.5 MG PO EVERY MORNING November 13, 2017 9:38am July 22, 2019 4:35pm Start: 05-25-2016 take 1 tablet by hawa th once daily HYDROCHLOROTHIAZIDE 12.5 MG TABS One tablet by mouth daily HYDROCHLOROTHIAZIDE [id number] Jimy Oconnell MD losartan potassium 100 mg oral tablet (20 sources) Angiotensin 2 Receptor Aura Start: 06-10-2024 take 1 tablet by mouth once daily Losartan 100 MG tablet Indications: 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 90 tablet 3 06/21/2022 Active Start: 12-01-2014 End: 09-26-2023 take 25 mg by mouth twice daily Losartan Discontinued 25 MG PO TWICE A DAY 180 October 25, 2021 8:40am January 16, 2023 7:19pm Start: 12-01-2014 take 1 tablet by hawa th once daily COZAAR 25 MG TABS One tablet by mouth daily LOSARTAN POTASSIUM [id number] Jimy Oconnell MD metoprolol tartrate 25 mg oral tablet (20 sources) beta-Adrenergic Aura Start: 12-14-2023 End: 06-10-2024 take 1 tablet by mouth twice daily Metoprolol 25 MG tab regular release Take 1 tablet by mouth 2 times daily. 180 tablet 3 06/10/2024 Active Start: 05-11-2023 take 25 mg by mouth twice daily Metoprolol Tartrate Active 25 MG PO TWICE A DAY June 05, 2023 12:00am Start: 11-25-2014 End: 06-21-2022 take 25 mg by mouth twice daily Metoprolol Tartrate Discontinued 25 MG PO TWICE A DAY 180 October 25, 2021 9:27am April 19, 2022 12:01pm Multiple Vitamins-Minerals ( WOMENS MULTI PO) (3 sources) Multiple Vitamin s-Minerals (WOMENS MULTI PO) Take by mouth. Active Multiple Vitamin s-Minerals (WOMENS MULTI PO) Take by mouth. 0 Active Rmlvzxbusamh-Gk-Iksp-Mineral s (2 sources) Start: 06-05-2023 take 1 tablet by mouth once daily Machexcrfykk-An-Zoma-Minerals Active 1 TABLET PO DAILY June 05, 2023 12:00am Start: 06-05-2023 take 1 tablet by hawa th once daily Wowujshgvxic-Il-Vplt-Minerals Active 1 T ABLET PO DAILY June 04, 2023 11:00pm tiZANidine 4 mg oral capsule (5 sources) Central alpha-2 Adrenergic Agonist Start: 06-05-2023 take 4 mg by mouth at bedtime Tizanidine Active 4 MG PO AT BEDTIME June 05, 2023 12:00am take 1 tablet by hawa every six hours as needed tiZANidine 4 [...] Take by mouth. Takes QOD 0 Active Vitamin D3-Vitamin K2 (2 sources) Start: 06-05-2023 take 1 capsule by mouth once daily Vitamin D3-Vitamin K2 Active 1 CAP PO DAILY June 05, 2023 12:00am Start: 06-05-2023 take 1 capsule [facility] daily Vitamin D3-Vitamin K2 Active 1 CAP PO DAILY June 04, 2023 11:00pm Completed/Discontinued Medications Medication Drug Class(es) Dates Sig (Normalized) Sig (Original) [id number] actuat albuterol 0.09 mg/actuat metered dose inhaler (6 sources) beta2-Adrenergic Agonist Start: 10-11-2019 End: 05-20-2020 Albuterol Sulfate Discontinued 2 PUFF INHALATION Q4H October 11, 2019 1:00am May 20, 2020 2:49pm 2 puffs every 4 hours while awake and every 2 hours PRN shortness of breath or wheezing amoxicillin 875 mg / clavulanate 125 mg oral tablet (5 sources) Penicillin-class Antibacterial Start: 10-04-2019 End: 10-14-2019 take 1 tablet by mouth every twelve hours Amoxicillin-Pot Clavulanate (Augmentin) 875-125 mg tablet Discontinued 1 TABLET PO Q12H 20 October 04, 2019 1:00am October 14, 2019 1:09am azithromycin 250 mg oral tablet (6 sources) Macrolide Antimicrobial Start: 2019 End: 05-20-2020 Azithromycin Discontinued 0 PO .COMPLEX 2019 1:00am May 20, 2020 2:48pm take 500 mg today (day 1), then 250 mg for 4 days (days 2-5) PO Start: 05-09-2017 End: 05-14-2017 ZITHROMAX Z-LORE 250 MG TABS Take 2 pills on day 1 then 1 pill days 2 through 5 [facility] [id number] [facility] ALARCON clopidogrel 75 mg oral tablet (20 sources) P2Y12 Platelet Inhibitor Start: 12-09-2020 End: 11-11-2021 take 75 mg by mouth every other day Clopidogrel Discontinued 75 MG PO every other day December 09, 2020 10:59am November 11, 2021 2:51pm Alternates plavix and aspirin Start: 11-25-2014 End: 12-09-2020 take 75 mg by mouth once daily Clopidogrel Discontinue d 75 MG PO DAILY 90 January 28, 2020 12:58pm December 09, 2020 11:01am gabapentin 100 mg oral capsule (5 sources) Anti-epileptic Agent Start: 04-25-2019 End: 07-22-2019 take 100 mg by mouth twice daily, then take 300 mg by mouth at bedtime Gabapentin Discontinued 100 MG PO DIRECTED 150 April 25, 2019 12:00am July 22, 2019 4:34pm 100 mg BID and 300 mg at bedtime zolpidem tartrate 5 mg oral tablet (14 sources) gamma-Aminobutyric Acid-ergic Agonist Start: 05-06-2016 End: 10-03-2016 take 1 tablet by mouth at bedtime AMBIEN 5 MG TABS One tablet by mouth at bedtime. ZOLPIDEM TARTRATE [id number] Jimy Oconnell MD Problems Active Problems Problem Classification Problem Date Documented Date Episodic/Chronic Acute myocardial infarction (20 sources) ST elevation (STEMI) myocardial infarction involving other coronary artery of anterior wall; Translations: [Myocardial infarction] Onset: 12-01-2014 Resolved: 05-06-2016 05-06-2016 Chronic Conditions associated with dizziness or vertigo (4 sources) Intermittent vertigo; Translations: [Dizziness and giddiness] 01-16-2023 Episodic Conduction disorders (2 sources) Right bundle branch block; Translations: [Unspecified right bundle-branch block] Onset: 06-10-2024 06-10-2024 Chronic Coronary atherosclerosis and other heart disease (20 sources) 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; Translations: [Old myocardial infarction] Onset: 11-12-2014 11-25-2014 Chronic Disorders of lipid metabolism (19 sources) Hyperlipidemia; Translations: [Mixed hyperlipidemia] Onset: 11-25-2014 11-25-2014 Chronic Essential hypertension (18 sources) Hypertensive disorder; Translations: [Essential hypertension] Onset: 11-25-2014 11-25-2014 Chronic Heart valve disorders (12 sources) Nonrheumatic tricuspid (valve) insufficiency; Translations: [Tricuspid incompetence, non-rheumatic ] Onset: 05-06-2016 05-06-2016 Chronic Immunizations and screening for infectious disease (8 sources) Patient encounter status; Translations: [Encounter for screening for COVID-19] Episodic Osteoporosis (1 source) Age-related osteoporosis without current pathological fracture; Translations: [Age-related osteoporosis without current pathological fracture] Onset: 07-23-2024 Chronic Other bone disease and musculoskeletal deformities (20 sources) Segmental and somatic dysfunction; Translations: [Segmental and somatic dysfunction of cervical region] 11-25-2020 Episodic Other circulatory disease (4 sources) Elevated blood pressure; Translations: [Elevated blood-pressure reading, without diagnosis of hypertension] 01-16-2023 Episodic Other non-traumatic joint disorders (2 sources) Shoulder pain; Translations: [Pain in left shoulder] 11-14-2020 Episodic Other non-traumatic joint disorders (3 sources) Pain in left shoulder; Translations: [Left shoulder pain] 11-14-2020 Episodic Other screening for suspected conditions (not mental disorders or infectious disease) (11 sources) Cardiovascular stress test abnormal; Translations: [Abnormal result of other cardiovascular function study] Onset: 10-04-2023 09-28-2023 Episodic Other upper respiratory disease (5 sources) Nasal congestion; Translations: [Nasal congestion] 03-25-2022 Episodic Other upper respiratory disease (1 source) Nasal congestion; Translations: [Other disease of nasal cavity and sinuses] Episodic Other upper respiratory infections (20 sources) Sinusitis; Translations: [Acute pharyngitis] Onset: 08-19-2016 05-09-2017 Episodic Otitis media and related conditions (5 sources) Acute bilateral otitis media ; Translations: [Otitis media, unspecified, bilateral] 10-04-2019 Episodic Spondylosis; intervertebral disc disorders; other back problems (5 sources) Degeneration of lumbar intervertebral disc; Translations: [Other intervertebral disc degeneration, lumbar region] 05-13-2019 Chronic Superficial injury; contusion (12 sources) Contusion of left thumb without damage to nail, initial encounter; Translations: [Contusion of thumb] Onset: 02-17-2017 02-17-2017 Episodic Past or Other Problems Problem Classification Problem Date Documented Da te Episodic/Chronic Chronic obstructive pulmonary disease and bronchiectasis (1 source) Bronchitis; Translations: [Bronchitis, not specified as acute or chronic] Onset: 05-09-2017 05-09-2017 Episodic Coronary atherosclerosis and other heart disease (8 sources) Coronary angioplasty status; Translations: [Presence of coronary angioplasty implant and graft] Onset: 11-25-2014 11-25-2014 Episodic Other aftercare (14 sources) Long-term (current) use of other medications; Translations: [Other long term care administrator (current) drug therapy] Onset: 11-25-2014 11-25-2014 Episodic Results Test Name Value Interpretation Reference Range Facility Vitamin D 1,25-Dihydroxyon 1 08-26-2023 VIT D 1,25 DIHY 52.0 pg/mL Normal 24.8-81.5 [facility] Comment on above: Order Comment: Order Date: 06/19/24Order Info: [id number] - [id number] Result Comment: Perf ormed at: [facility] [id number] Inspector Conveyor Line: Ella Dunham MD, Phone: [phone] Performed By: #### L 500.3400, L500.4100 #### [facility] [address] [place], [address] Basic Metabolic Profile (BMP )on 06-24-2024 BUN/CRE 21.0 RATIO High 10-20 [facility] Comment on above: Order Comment: Order Date: 06/19/24Order Info: [id number] - BMPOrder Info: [id number] - PHOSOrder Info: [id number] - MGOrder Info: [id number] - TSH Performed By: #### L 500.3400, L500.4100 #### [facility] [address] [place], [place], [address] CA,Total 9.5 mg/dL Normal 8.5-10.1 [facility] Comment on above: Order Comment: Order Date: 06/19/24Order Info: [id number] - BMPOrder Info: [id number] - PHOSOrder Info: [id number] - MGOrder Info: 3 - TSH Performed By: #### L 500.3400, L500.4100 #### [facility] [address] [place], [place], [address] Chloride [Moles/Vol] 108 mmol/L High 98-107 [facility] Comment on above: Order Comment: Order Date: 06/19/24Order Info: [id number] - BMPOrder Info: [id number] - PHOSOrder Info: - MGOrder Info: [id number] - TSH Performed By: #### L 500.3400, L500.4100 #### [facility] [address] [place], [place], [address] CO2 [Moles/Vol] 28.0 mmol/L Normal 21.0-32.0 [facility] Comment on above: Order Comment: Order Date: 06/19/24Order Info: [id number] - BMPOrder Info: [id number] - PHOSOrder Info: - MGOrder Info: [id number] - TSH Performed By: #### L 500.3400, L500.4100 #### [facility] [address] [place], [place], [address] Creatinine [Mass/Vol] 0.95 mg/dL Normal 0.55-1.02 [facility] Comment on above: Order Comment: Order Date: 06/19/24Order Info: [id number] - BMPOrder Info: [id number] - PHOSOrder Info: - MGOrder Info: [id number] - TSH Result Comment: The validity of the calculated GFR GFRAA in patients over 70 years has not been determined. Clinical correlation is essential. Performed By: #### L 500.3400, L500.4100 #### [facility] [address] [place], [address] EST GFR - AA 75 mL/min Normal >60 [facility] Comment on above: Order Comment: Order Date: 06/19/24Order Info: [id number] - BMPOrder Info: [id number]- - PHOSOrder Info: [id number] - MGOrder Info: [id number] - TSH Result Comment: Afri can [place] GFR Calc Performed By: #### L 500.3400, L500.4100 #### [facility] [address] [place], [address] GAP 5 Normal 5-15 [facility] Comment on above: Order Comment: Order Date: 06/19/24Order Info: [id number] - BMPOrder Info: [id number] - PHOSOrder Info: [id number] - MGOrder Info: 3 - TSH Performed By: #### L 500.3400, L500.4100 #### [facility] [address] [place], [address] GFR/1.73 sq M.predicted among non-blacks MDRD (S/P/Bld) [Vol rate/Area] 62 mL/min/{1.73_m2} Normal >60 [facility] Comment on above: Order Comment: Order Date: 06/19/24Order Info: [id number] - BMPOrder Info: [id number] - PHOSOrder Info: [id number] - MGOrder Info: [id number] - TSH Result Comment: Non- GFR Calc Performed By: #### L 500.3400, L500.4100 #### [facility] [address] [place], [address] Glucose [Mass/Vol] 99 mg/dL Normal 74-[address] [facility] Comment on above: Order Comment: Order Date: 06/19/24Order Info: 666- - BMPOrder Info: [id number]- - PHOSOrder Info: [id number] - MGOrder Info: [id number] - TSH Performed By: #### L 500.3400, L500.4100 #### [facility] [address] [place], [address] Potassium [Moles/Vol] 4.1 mmol/L Normal 3.5-5.1 [facility] Comment on above: Order Comment: Order Date: 06/19/24Order Info: [id number] - BMPOrder Info: [id number] - PHOSOrder Info: [id number] - MGOrder Info: [id number] - TSH Performed By: #### L 500.3400, L500.4100 #### [facility] [address] [place], [address] Sodium [Moles/Vol] 141 mmol/L Normal 136-[address] [facility] Comment on above: Order Comment: Order Date: 06/19/24Order Info: [id number] - BMPOrder Info: [id number] - PHOSOrder Info: - MGOrder Info: [id number] - TSH Performed By: #### L 500.3400, L500.4100 #### [facility] [address] [place], [address] Urea nitrogen [Mass/Vol] 20 mg/dL High 7-18 [facility] Comment on above: Order Comment: Order Date: 06/19/24Order Info: [id number] - BMPOrder Info: [id number] - PHOSOrder Info: - MGOrder Info: [id number] - TSH Performed By: #### L 500.3400, L500.4100 #### [facility] [address] [place], [address] L501.2276on 06-24-2024 Ionized Calcium 5.23 mg/dL High 4.36-5.20 [facility] Comment on above: Performed By: #### L 500.3400, L500.4100 #### [facility] [address] [place], [place], [address] Magnesiumon 06-24-2024 Magnesium [Mass/Vol] 2.1 mg/dL Normal 1.6-2.6 [facility] Comment on above: Order Comment: Order Date: 06/19/24Order Info: 06 - BMPOrder Info: [id number] - PHOSOrder Info: - MGOrder Info: [id number] - TSH Performed By: #### L 500.3400, L500.4100 #### [facility] [address] [place], [place], [address] PTHINon 06-24-2024 PTH 40.5 pg/mL Normal 18.4-80.1 [facility] Comment on above: Order Comment: Order Date: 06/19/24Order Info: [id number] - PTHIN Performed By: #### L 500.3400, L500.4100 #### [facility] [address] [place], [address] Phosphoruson 06-24-2024 Phosphate [Mass/Vol] 4.4 mg/dL Normal 2.5-4.9 [facility] Comment on above: Order Comment: Order Date: 06/19/24Order Info: [id number] - BMPOrder Info: [id number] - PHOSOrder Info: - MGOrder Info: [id number] - TSH Performed By: #### L 500.3400, L500.4100 #### [facility] [address] [place], [address] Thyroid Stim Hormone (TSH)on 06-24-2024 TSH 3.400 uIU/mL Normal 0.358-3.740 [facility] Comment on above: Order Comment: Order Date: 06/19/24Order Info: 06 - BMPOrder Info: [id number] - PHOSOrder Info: - MGOrder Info: [id number] - TSH Performed By: #### L 500.3400, L500.4100 #### [facility] [address] [place], [address] Dexa Bone Density Studyon Dexa Bone Density Study [facility] Imaging Services [address] [address] Dexa Bone Density Study MR#: [id number] Acct: [id number] Name: MARY VICTOR I Rep #: [id number] : 1955 F 68 From: Jimenez diamond MD PCP: Dr. Arsenio Gastelum MD Status: [facility] [address] Study: Dexa Bone Density Study Date of Exam: 06/13/24 Exam# [id number] Ordering Dr: Arsenio Gastelum [id number] STUDY: DUAL ENERGY X-RAY ABSORPTIOMETRY / DXA REASON FOR EXAM: Female, 68 years old. V76.12ScreeningBONE DENSITY REASON FOR EXAM TECHNIQUE: Bone Mineral Density (BMD) measurements of lumbar spine and bilateral hips were obtained. COMPARISON: Comparison is made with prior study dated June 19, 2018. FINDINGS: Lumbar Spine (L1-L4): g/cm2 (0.776) / T-score (-2.5) / Z-score (-0.6) Findings are suggestive of osteopenia with a high fracture risk. Left Femur Total: g/cm2 (0.817) / T-score (-1.0) / Z-score (0.3) Left Femoral Neck: g/cm2 (0.718) / T-score (-1.2) / Z-score (0.4) Right Femur Total: g/cm2 (0.850) / T-score (-0.8) / Z-score (0.6) Right Femoral Neck: g/cm2 (0.680) / T-score (-1.5) / Z-score (0.1) The T-Scores on the most recent prior examination were: Lumbar Spine (L1-L4): There has been worsening of bone density since the previous examination. Left Femur Total: which represents a worsening of 8.4%. Right Femur Total: which represents a worsening of 2.8%. BD/Dexa Bone Density Study IMPRESSION: The patient is considered osteopenic as outlined below according to World Harshad Organization (WHO) criteria with a high fracture risk. There has been worsening of bone density since the previous examination. Reference Information: The T-score is the number of standard deviations above or below the standard which is normal for young adults at their peak bone mineral density. The World Health Organization (WHO) interprets the T-scores as follows: Above -1 Normal bone density Between -1 and -2.5 Osteopenia Equal to / or below -2.5 Osteoporosis As a practical clinical guideline, osteopenia may be graded as follows: Mild -1 through -1.5 Moderate -1.6 through -2.0 Severe -2.1 through -2.4 The Z-score is the number of standard deviations above or below age-matched controls. A Z-score of less than -1.5 would be considered abnormal. References: 1. NIH Osteoporosis and Related Bone Diseases www osteo.org 2. International Society for Clinical Densitometry www iscd.org 3. National Osteoporosis Foundation www nof.org Electronically Signed: Jimenez Perera MD at 12:37 EST , CC: Dr. 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, [address] Absolute Neut 2.4 X10 3/uL Normal 2.0-7.7 [facility] Comment on above: Performed By: #### L 100.0200, L500.2900, L400.0100 #### [facility] [address] [place], [address] Basophils/100 WBC (Bld) 1.2 % High 0-1 [facility] Comment on above: Performed By: #### L 100.0200, L500.2900, L400.0100 #### [facility] [address] [place], [address] Eosinophils/100 WBC (Bld) 2.8 % Normal 0-5 [facility] Comment on above: Performed By: #### L 100.0200, L500.2900, L400.0100 #### [facility] [address] [place], [address] Erythrocyte distribution width (RBC) [Ratio] 12.6 % Normal 11.6-14.6 [facility] Comment on above: Performed By: #### L 100.0200, L500.2900, L400.0100 #### [facility] [address] [place], [address] Hematocrit (Bld) [Volume fraction] 42.2 % Normal 37-47 [facility] Comment on above: Performed By: #### L 100.0200, L500.2900, L400.0100 #### [facility] [address] [place], [address] Hemoglobin (Bld) [Mass/Vol] 13.8 g/dL Normal 12.0-15.0 [facility] Comment on above: Performed By: #### L 100.0200, L500.2900, L400.0100 #### [facility] [address] [place], [address] Lymphocytes/100 WBC (Bld) 30.3 % Normal 19-41 [facility] Comment on above: Performed By: #### L 100.0200, L500.2900, L400.0100 #### [facility] [address] [place], [address] MCH (RBC) [Entitic mass] 31.0 pg Normal 27.0-32.0 [facility] Comment on above: Performed By: #### L 100.0200, L500.2900, L400.0100 #### [facility] [address] [place], [address] MCHC (RBC) [Mass/Vol] 32.7 g/dL Normal 32-36 [facility] Comment on above: Performed By: #### L 100.0200, L500.2900, L400.0100 #### [facility] [address] [place], [address] MCV (RBC) [Entitic vol] 94.8 fL Normal 81-99 [facility] Comment on above: Performed By: #### L 100.0200, L500.2900, L400.0100 #### [facility] [address] [place], [address] Monocytes/100 WBC (Bld) 7.8 % Normal 0-10 [facility] Comment on above: Performed By: #### L 100.0200, L500.2900, L400.0100 #### [facility] [address] [place], [address] Neutrophils/100 WBC (Bld) 57.7 % Normal 47-70 [facility] Comment on above: Performed By: #### L 100.0200, L500.2900, L400.0100 #### [facility] [address] [place], [address] NRBC # 0.00 10 3/uL Normal 0-5 [facility] Comment on above: Performed By: #### L 100.0200, L500.2900, L400.0100 #### [facility] [address] [place], [address] Nucleated RBC (Bld) [#/Vol] 0 10*3/uL Normal 0-5 [facility] Comment on above: Performed By: #### L 100.0200, L500.2900, L400.0100 #### [facility] [address] [place], [address] Platelet mean volume (Bld) [Entitic vol] 10.9 fL Normal 6.2-12.0 [facility] Comment on above: Performed By: #### L 100.0200, L500.2900, L400.0100 #### [facility] [address] [place], [address] Platelets (Bld) [#/Vol] 188 10*3/uL Normal 150-450 [facility] Comment on above: Performed By: #### L 100.0200, L500.2900, L400.0100 #### [facility] [address] [place], [address] RBC (Bld) [#/Vol] 4.45 10*6/uL Normal 4.2-5.4 [facility] Comment on above: Performed By: #### L 100.0200, L500.2900, L400.0100 #### [facility] [address] [place], [address] RDW SD 43.8 fl Normal 35.1-43.9 [facility] Comment on above: Performed By: #### L 100.0200, L500.2900, L400.0100 #### [facility] [address] [place], [address] WBC (Bld) [#/Vol] 4.2 10*3/uL Low 4.4-11.[address] [facility] Comment on above: Performed By: #### L 100.0200, L500.2900, L400.0100 #### [facility] [address] [place], [address] Employee Profileon 4 Albumin [Mass/Vol] 3.7 g/dL Normal 3.2-5.[address] [facility] Comment on above: Performed By: #### L 100.0200, L500.2900, L400.0100 #### [facility] [address] [place], [address] Albumin/Globulin [Mass ratio] 1.1 {ratio} Normal 0.9-2.4 [facility] Comment on above: Performed By: #### L 100.0200, L500.2900, L400.0100 #### [facility] [address] [place], [address] ALK P 82 U/L Normal 45-117 [facility] Comment on above: Performed By: #### L 100.0200, L500.2900, L400.0100 #### [facility] [address] [place], [address] ALT [Catalytic activity/Vol] 29 U/L Normal 13-56 [facility] Comment on above: Performed By: #### L 100.0200, L500.2900, L400.0100 #### [facility] [address] [place], [address] AST [Catalytic activity/Vol] 20 U/L Normal 15-37 [facility] Comment on above: Performed By: #### L 100.0200, L500.2900, L400.0100 #### [facility] [address] [place], [address] Bilirubin [Mass/Vol] 0.70 mg/dL Normal 0.20-1.00 [facility] Comment on above: Result Comment: For patients on eltrombopag therapy, use of Dimension Stephan TBIL is not recommended. Performed By: #### L 100.0200, L500.2900, L400.0100 #### [facility] [address] [place], [address] Bilirubin.direct [Mass/Vol] 0.20 mg/dL Normal 0.00-0.30 [facility] Comment on above: Performed By: #### L 100.0200, L500.2900, L400.0100 #### [facility] [address] [place], [address] BUN/CRE 15.5 RATIO Normal 10-20 [facility] Comment on above: Performed By: #### L 100.0200, L500.2900, L400.0100 #### [facility] [address] [place], [address] CA,Total 9.3 mg/dL Normal 8.5-10.1 [facility] Comment on above: Performed By: #### L 100.0200, L500.2900, L400.0100 #### [facility] [address] [place], [address] Chloride [Moles/Vol] 106 mmol/L Normal 98-107 [facility] Comment on above: Performed By: #### L 100.0200, L500.2900, L400.0100 #### [facility] [address] [place], [address] CHOL:HDL 1.80 Normal [facility] Comment on above: Performed By: #### L 100.0200, L500.2900, L400.0100 #### [facility] [address] [place], [address] Cholesterol [Mass/Vol] 167 mg/dL Normal 200 [facility] Comment on above: Result Comment: <200 mg/dL Desirable 200-240 mg/dL Borderline >240 mg/dL High Risk Performed By: #### L 100.0200, L500.2900, L400.0100 #### [facility] [address] [place], [address] Cholesterol in HDL [Mass/Vol] 91 mg/dL Normal [facility] Comment on above: Result Comment: The drugs N-Acetylcysteine and Metamizole may falsely depress this assay. Reference Range HDL <40 mg/dL Low HDL Cholesterol HDL >or= 60 mg/dL High HDL Cholesterol Performed By: #### L 100.0200, L500.2900, L400.0100 #### [facility] [address] [place], [address] Cholesterol in LDL [Mass/Vol] 64 mg/dL Normal 0-130 [facility] Comment on above: Performed By: #### L 100.0200, L500.2900, L400.0100 #### [facility] [address] [place], [address] Cholesterol in VLDL [Mass/Vol] 12 mg/dL Normal 5-40 [facility] Comment on above: Performed By: #### L 100.0200, L500.2900, L400.0100 #### [facility] [address] [place], [address] CO2 [Moles/Vol] 28.0 mmol/L Normal 21.0-32.0 [facility] Comment on above: Performed By: #### L 100.0200, L500.2900, L400.0100 #### [facility] [address] [place], [address] Creatinine [Mass/Vol] 0.84 mg/dL Normal 0.55-1.02 [facility] Comment on above: Result Comment: The validity of the calculated GFR GFRAA in patients over 70 years has not been determined. Clinical correlation is essential. Performed By: #### L 100.0200, L500.2900, L400.0100 #### [facility] [address] [place], [address] EST GFR - AA 87 mL/min Normal >60 [facility] Comment on above: Result Comment: Afri can S[place] GFR Calc Performed By: #### L 100.0200, L500.2900, L400.0100 #### [facility] [address] [place], [address] GAP 5 Normal 5-15 [facility] Comment on above: Performed By: #### L 100.0200, L500.2900, L400.0100 #### [facility] [address] [place], [address] GFR/1.73 sq M.predicted among non-blacks MDRD (S/P/Bld) [Vol rate/Area] 72 mL/min/{1.73_m2} Normal >60 [facility] Comment on above: Result Comment: Non- GFR Calc Performed By: #### L 100.0200, L500.2900, L400.0100 #### [facility] [address] [place], [address] Globulin (S) [Mass/Vol] 3.4 g/dL Normal 2.2-4.2 [facility] Comment on above: Performed By: #### L 100.0200, L500.2900, L400.0100 #### [facility] [address] [place], [address] Glucose [Mass/Vol] 99 mg/dL Normal 74-[address] [facility] Comment on above: Performed By: #### L 100.0200, L500.2900, L400.0100 #### [facility] [address] [place], [address] LDH 225 U/L Normal 84-246 [facility] Comment on above: Performed By: #### L 100.0200, L500.2900, L400.0100 #### [facility] [address] [place], [address] Phosphate [Mass/Vol] 3.9 mg/dL Normal 2.5-4.9 [facility] Comment on above: Performed By: #### L 100.0200, L500.2900, L400.0100 #### [facility] [address] [place], [address] Potassium [Moles/Vol] 3.9 mmol/L Normal 3.5-5.1 [facility] Comment on above: Performed By: #### L 100.0200, L500.2900, L400.0100 #### [facility] [address] [place], [address] Sodium [Moles/Vol] 139 mmol/L Normal 136-[address] [facility] Comment on above: Performed By: #### L 100.0200, L500.2900, L400.0100 #### [facility] [address] [place], [address] T PROT 7.1 g/dL Normal 6.4-8.2 [facility] Comment on above: Performed By: #### L 100.0200, L500.2900, L400.0100 #### [facility] [address] [place], [address] Triglyceride [Mass/Vol] 59 mg/dL Normal [facility] Comment on above: Result Comment: The drugs N-Acetylcysteine and Metamizole may falsely depress this assay. Serum Triglycerides Reference Interval Normal <150 mg/dL Borderline high 150 - 199 mg/dL High 200 - 499 mg/dL Very High > or = 500 mg/dL Performed By: #### L 100.0200, L500.2900, L400.0100 #### [facility] [address] [place], [address] Urea nitrogen [Mass/Vol] 13 mg/dL Normal 7-18 [facility] Comment on above: Performed By: #### L 100.0200, L500.2900, L400.0100 #### [facility] [address] [place], [address] URIC 5.0 mg/dL Normal 2.6-6.0 [facility] Comment on above: Result Comment: The drugs N-Acetylcysteine and Metamizole may falsely depress this assay. Performed By: #### L 100.0200, L500.2900, L400.0100 #### [facility] [address] [place], [address] Lipid Profileon 05-14-2024 Cholesterol [Mass/Vol] 171 mg/dL Normal 200 [facility] Comment on above: Result Comment: <200 mg/dL Desirable 200-240 mg/dL Borderline >240 mg/dL High Risk Performed By: #### L 500.3400, L500.4100 #### [facility] [address] [place], [address] Cholesterol in HDL [Mass/Vol] 91 mg/dL Normal [facility] Comment on above: Result Comment: The drugs N-Acetylcysteine and Metamizole may falsely depress this assay. Reference Range HDL <40 mg/dL Low HDL Cholesterol HDL >or= 60 mg/dL High HDL Cholesterol Performed By: #### L 500.3400, L500.4100 #### [facility] [address] [place], [address] Cholesterol in LDL [Mass/Vol] 68 mg/dL Normal 0-130 [facility] Comment on above: Performed By: #### L 500.3400, L500.4100 #### [facility] [address] [place], [address] Cholesterol in VLDL [Mass/Vol] 12 mg/dL Normal 5-40 [facility] Comment on above: Performed By: #### L 500.3400, L500.4100 #### [facility] [address] [place], [address] Triglyceride [Mass/Vol] 58 mg/dL Normal [facility] Comment on above: Result Comment: The drugs N-Acetylcysteine and Metamizole may falsely depress this assay. Serum Triglycerides Reference Interval Normal <150 mg/dL Borderline high 150 - 199 mg/dL High 200 - 499 mg/dL Very High > or = 500 mg/dL Performed By: #### L 500.3400, L500.4100 #### [facility] [address] [place], [address] Liver Profileon 05-14-2024 Albumin [Mass/Vol] 3.7 g/dL Normal 3.2-5.[address] [facility] Comment on above: Performed By: #### L 500.3400, L500.4100 #### [facility] [address] [place], [address] ALK P 82 U/L Normal 45-117 [facility] Comment on above: Performed By: #### L 500.3400, L500.4100 #### [facility] [address] [place], [address] ALT [Catalytic activity/Vol] 28 U/L Normal 13-56 [facility] Comment on above: Performed By: #### L 500.3400, L500.4100 #### [facility] [address] [place], [address] AST [Catalytic activity/Vol] 21 U/L Normal 15-37 [facility] Comment on above: Performed By: #### L 500.3400, L500.4100 #### [facility] [address] [place], [address] Bilirubin [Mass/Vol] 0.80 mg/dL Normal 0.20-1.00 [facility] Comment on above: Result Comment: For patients on eltrombopag therapy, use of Dimension Stephan TBIL is not recommended. Performed By: #### L 500.3400, L500.4100 #### [facility] [address] [place], [address] Bilirubin.direct [Mass/Vol] 0.21 mg/dL Normal 0.00-0.30 [facility] Comment on above: Performed By: #### L 500.3400, L500.4100 #### [facility] [address] [place], [address] Globulin (S) [Mass/Vol] 3.3 g/dL Normal 2.2-4.2 [facility] Comment on above: Performed By: #### L 500.3400, L500.4100 #### [facility] [address] [place], [address] T PROT 7.0 g/dL Normal 6.4-8.2 [facility] Comment on above: Performed By: #### L 500.3400, L500.4100 #### [facility] [address] [place], [address] Urinalysis, Employeeon 05-14 BILIRUBIN URINE Negative Normal Negative [facility] Comment on above: Order Comment: CLEAN CATCH Performed By: #### L 100.0200, L500.2900, L400.0100 #### [facility] [address] [place], [address] Clarity (U) Clear Normal Clear [facility] Comment on above: Order Comment: CLEAN CATCH Performed By: #### L 100.0200, L500.2900, L400.0100 #### [facility] [address] [place], [address] Color (U) Straw Normal Yellow [facility] Comment on above: Order Comment: CLEAN CATCH Performed By: #### L 100.0200, L500.2900, L400.0100 #### [facility] [address] [place], [address] GLUCOSE, UR Normal Normal Normal [facility] Comment on above: Order Comment: CLEAN CATCH Performed By: #### L 100.0200, L500.2900, L400.0100 #### [facility] [address] [place], [address] KETONE UR Negative Normal Negative [facility] Comment on above: Order Comment: CLEAN CATCH Performed By: #### L 100.0200, L500.2900, L400.0100 #### [facility] [address] [place], [address] LEUK ESTERASE Negative Normal Negative [facility] Comment on above: Order Comment: CLEAN CATCH Performed By: #### L 100.0200, L500.2900, L400.0100 #### [facility] [address] [place], [address] Nitrite Ql (U) Negative Normal Negative [facility] Comment on above: Order Comment: CLEAN CATCH Performed By: #### L 100.0200, L500.2900, L400.0100 #### [facility] [address] [place], [address] OCCULT BLOOD-UR Negative Normal Negative [facility] Comment on above: Order Comment: CLEAN CATCH Performed By: #### L 100.0200, L500.2900, L400.0100 #### [facility] [address] [place], [address] pH UR 6.5 Normal 5.0 - 8.0 [facility] Comment on above: Order Comment: CLEAN CATCH Performed By: #### L 100.0200, L500.2900, L400.0100 #### [facility] [address] [place], [address] PROT DIPSTX Negative Normal Negative [facility] Comment on above: Order Comment: CLEAN CATCH Performed By: #### L 100.0200, L500.2900, L400.0100 #### [facility] [address] [place], [address] SP.GR. DIPSTX 1.005 Normal 1.002-1.030 [facility] Comment on above: Order Comment: CLEAN CATCH Performed By: #### L 100.0200, L500.2900, L400.0100 #### [facility] [address] [place], [address] UROBILI Normal Normal Normal [facility] Comment on above: Order Comment: CLEAN CATCH Performed By: #### L 100.0200, L500.2900, L400.0100 #### [facility] [address] [place], [address] SCRN MAMM (CAD)W/JOSE LUIS BILATo n 05-01-2024 SCRN MAMM (CAD)W/JOSE LUIS BILAT [facility] Imaging Services [address] [place] [address] SCRN MAMM (CAD)W/JOSE LUIS BILAT MR#: [id number] Acct: [id number] Name: MARY VICTOR I Rep #: [id number] : 1955 F 68 From: Jimenez diamond MD PCP: Dr. Arsenio Gastelum MD Status: REG [facility] Study: SCRN MAMM (CAD)W/JOSE LUIS BILAT Date of Exam: 04/14 04/06 Exam# [id number] Ordering Dr: Arsenio Gastelum [id number] MAMMOGRAPHY - BILATERAL SCREENING REASON FOR EXAM: Female, 68 years old. Routine annual screening examination. PERTINENT HISTORY: Non-contributory. TECHNIQUE: Digital bilateral breast jose luis (3D mammographic acquisition) in the CC and MLO projections. 2-D mediolateral oblique (MLO) and craniocaudad (CC) views of both breasts were obtained. CAD: Full Field Digital Mammography with Computer Added Detection was performed. COMPARISON: Comparison is made with prior study dated April 24, 2023 and April 13, 2022. FINDINGS: Breast Composition: There are scattered areas of fibroglandular density. There are no dominant masses or suspicious calcifications. Stable small benign-appearing bilateral axillary lymph nodes. No other significant abnormalities are identified. There has been no significant change since the prior study. BI/SCRN MAMM (CAD)W/JOSE LUIS BILAT IMPRESSION: Stable bilateral screening mammogram. Yearly follow-up mammogram recommended. (A) ASSESSMENT CATEGORY: BIRADS Category 2: Benign. A letter regarding these results will be sent to the patient by the facility within 30 days. Approximately 10% of breast cancers are not detected by mammography. A normal mammogram should not delay biopsy of a clinically suspicious abnormality. [id number] Electronically Signed: Jimenez Perera MD at 13:36 EDT , CC: Dr. 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 Assessment and Plan Assessment and Plan Orders: Orders POC Cepheid Covid, FluAB, RSV Today Plan Details Goals Barriers: Goals Decrease pain Decrease inflammation Improve ROM Barriers DDD Work posture 11/09/23 0747 Date Best ALARCON Cosigner Signature: Date (if applicable) CC: Normal [facility] Colonoscopy Reporton 024 Colonoscopy Report [facility] Medical Records Department [address] [place] [address] Colonoscopy Report MR#: [id number] Acct: [id number] Name: MARY VICTOR I Rep #: [id number] : 1955 68 From: Ramin Dunlap DO PCP: Dr. Kaushal Gastelum MD Status:[facility] Patient Name: Mary Victor Procedure Date: 11/02/2023 6:59 AM Date of : 1955 Age: 68 Procedure: Colonoscopy Indications: Screening for colorectal malignant neoplasm Providers: Ramin Dunlap DO Referring MD: Kaushal Gastelum Medicines: Monitored Anesthesia Care Patient Profile: This is a 68 year old female. Refer to note in patient chart for documentation of history and physical. Last Colonoscopy: more than 10 years ago. Complications: No immediate complications. Procedure: Pre-Anesthesia Assessment: - Prior to the procedure, a History and Physical was performed, and patient medications and allergies were reviewed. The risks and benefits of the procedure and the sedation options and risks were discussed with the patient. All questions were answered and informed consent was obtained. Patient identification and proposed procedure were verified by the physician. Mental Status Examination: normal. Airway Examination: normal oropharyngeal airway and neck mobility. Prophylactic Antibiotics: The patient does not require prophylactic antibiotics. Prior Anticoagulants: The patient has taken no anticoagulant or antiplatelet agents. ASA Grade Assessment: III - A patient with severe systemic disease. After reviewing the risks and benefits, the patient was deemed in satisfactory condition to undergo the procedure. The anesthesia plan was to use monitored anesthesia care (MAC). Immediately prior to administration of medications, the patient was re-assessed for adequacy to receive sedatives. The heart rate, respiratory rate, oxygen saturations, blood pressure, adequacy of pulmonary ventilation, and response to care were monitored throughout the procedure. The physical status of the patient was re-assessed after the procedure. After I obtained informed consent, the scope was passed under direct vision. Throughout the procedure, the patient's blood pressure, pulse, and oxygen saturations were monitored continuously. The Colonoscope was introduced through the anus and advanced to the cecum, identified by appendiceal orifice and ileocecal valve. The colonoscopy was performed without difficulty. The patient tolerated the procedure well. The quality of the bowel preparation was adequate. The ileocecal valve, appendiceal orifice, and rectum were photographed. Scope In: 7:08:52 AM Scope Withdrawal Time 0 hours 9 minutes 15 seconds Scope Out: 7:20:51 AM Total Procedure Duration Time 0 hours 11 minutes 59 seconds Findings: The perianal and digital rectal examinations were normal. Multiple small and large-mouthed diverticula were found in the recto-sigmoid colon, sigmoid colon and descending colon. A 5 mm polyp was found in the splenic flexure. The polyp was sessile. The polyp was removed with a jumbo cold forceps. Resection and retrieval were complete. Verification of patient identification for the specimen was done. Estimated blood loss was minimal. Non-bleeding external and internal hemorrhoids were found during retroflexion. The hemorrhoids were Grade II (internal hemorrhoids that prolapse but reduce spontaneously). Impression: - Diverticulosis in the recto-sigmoid colon, in the sigmoid colon and in the descending colon. - One 5 mm polyp at the splenic flexure, removed with a jumbo cold forceps. Resected and retrieved. Recommendation: - Repeat colonoscopy in 5 years for surveillance. - Continue present medications. Procedure Code(s): --- Professional --- 59684, Colonoscopy, flexible; with biopsy, single or multiple CPT copyright 2021 [employer]. All rights reserved. The codes documented in this report are preliminary and upon remote coders review may be revised to meet current compliance requirements. Ramin Dunlap DO 11/02/2023 7:27:03 AM This report has been signed electronically. Number of Addenda: 0 Note Initiated On: 11/02/2023 6:59 AM 11/02/23 0727 Date Ramin Dunlap DO Cosigner Signature: Date (if indicated) CC: Dr. Kaushal Gastelum MD; Ramin Dunlap DO Date Dictated: 11/02/2359 Date Transcribed: Brush Trimming Machine Setter: JU Signed Normal [facility] Surgery Specimen Level Gabrielle 11-02-2023 Surgery Specimen Level IV Patient Age/Sex Location Account Attending Physician MARY VICTOR I 68/F EN [id number] Ramin Dunlap DO Specimen: [id number] Received: 11/02/23 Status: LAVELLE Shannon Num: [id number] Spec Type: COLON BX Subm Dr: Ramin Dunlap DO HEADER OPERATION: Colonoscopy, open access with biopsy PRE-OP DIAGNOSIS: Encounter for screening for malignant neoplasm of colon TISSUE SUBMITTED: Splenic flexure biopsy polyp MICROSCOPIC DIAGNOSIS Colonic polyp at hepatic flexure, biopsy; Tubular adenoma. /mr 11/03/2023 MICROSCOPIC DESCRIPTION Slides are reviewed. GROSS DESCRIPTION Received in fixative is one container labeled with the patient's name and designated Splenic flexure biopsy polyp. The specimen consists of one irregular fragment of light apple soft tissue that measures 0.4 x 0.3 x 0.1 cm. The specimen is totally submitted in one cassette. / 11/02/2023 TC:5 CPT: 05336 Patient Age/Sex Location Account Attending Physician MARY VICTOR I 68/F EN [id number] aRmin Dunlap DO Signed (signature on file) Dr. Adán Anderson DO 11/03/23 1154 Normal [facility] Comment on above: Performed By: #### L 500.3400, L500.4100 #### [facility] Laboratory [facility] [place], [address] Cardiac Cath Diagnosticon Cardiac Cath Diagnostic [facility] Imaging Services [address] [place] [address] Cardiac Cath Diagnostic MR#: [id number] Acct: [id number] Name: MARY VICTOR I Rep #: [id number] : 1955 68 From: Deborah Noland MD PCP: Dr. Kaushal Gastelum MD [place] [facility] [place] Name: MARY VICTOR I Study Date: 10/10/2023 Performing: Briana Noland MD Ht: 69 inches 175.26 cm : 1955 Wt: 157.6 lbs 71.38 kg Age: 68 Gender: female BSA: 1.87 PROCEDURE(S) PERFORMED DC01-(99232)LHC/COR/ LV CLINICAL PROFILE AND INDICATIONS Indications: Abnormal Stress test Heart Failure: None CONCLUSIONS CAD as described. LVEF is 60%. No significant aortic stenosis or mitral regurgitation RECOMMENDATIONS Medical therapy for CAD DESCRIPTION OF PROCEDURE The patient arrived to the procedure lab. The risks and benefits of the procedure as well as a full description of our services here and current unavailability of surgical backup were fully explained to the patient and/or their significant other prior to the catheterization. The Timeout was completed, verifying the correct patient and procedure. The patient's procedural site was prepped and draped in the usual fashion. Local anesthetic was given subcutaneously to right radial region with Lidocaine 2%. Using a modified Seldinger technique, arterial access was obtained via the right radial artery, a 6Fr sheath was inserted. Left Coronary Artery selective angiography was performed in multiple views using a 5 Fr. JL3.5 catheter. Left Ventriculography was performed in ARTEAGA projection using a 5 Fr.. LV to AO pullback pressures were then recorded. Right Coronary Artery selective angiography was then performed in multiple views using a 5 Fr. JR 4 catheter. Right Coronary Artery selective angiography was then performed in multiple views using a 5 Fr. JR 4 catheter.The arterial sheath was pulled and a TR Band was applied for hemostasis CORONARY ANGIOGRAPHY DOMINANCE: Right Dominant LEFT HEART ASSESSMENT Left Ventricular Ejection Fraction: by LV Gram 65 % LEFT MAIN: Mild luminal irregularities LEFT ANTERIOR DESCENDING ARTERY: Patent stent in the LAD. 30% stenosis distal to the stent. There is a small diagonal branch that is jailed by the stent that has 80% ostial stenosis. This is a very small branch, about 1.25 mm in diameter CIRCUMFLEX ARTERY: OM 1: Ostial - 40 % Stenosis RIGHT CORONARY ARTERY: 30% stenosis in the proximal right PDA VALVE FINDINGS: No Aortic Valve Stenosis No Mitral Insufficiency COMPLICATIONS No Complications PROCEDURE MEDICATIONS Versed 1 mg IV Fentanyl 50 mcg IV Oxygen: 2 L/min via nasal cannula Heparin given IA 10/10/2023 09:43:16 Verapamil 2.5mg, Ntg 100mcgs, 3000 units of Heparin given IA 10/10/2023 09:43:16 SUMMARY OF HEMODYNAMIC DATA Time AIR REST ECG 08:24:42 AO 159/87 (119) SA 09:45:38 LV 175/-4, 15 09:50:05 LV 176/-3, 18 09:50:14 LV 170/-2, 17 09:50:48 LVp 172/-1, 16 09:50:57 AOp 172/81 (121) 09:51:04 ECG 10:10:43 Signed By Briana Noland MD On 10/12/2023 15:56:18 Briana Noland MD 10/12/23 1556 Date Deborah Noland MD Cosigner Signature: Date (if indicated) CC: Dr. Kaushal Gastelum MD; Dr. Deborah Noland MD Date Dictated: 10/10/2341 Date Transcribed: 10/12/231555 Brush Trimming Machine Setter: YARY Signed Normal [facility] Absolute lymphocyte countOrd ered By: Ling Jeffries on 10-03-2023 Lymphocytes Auto (Unsp spec) [#/Vol] 1.35 10*3/uL 0.83-4.51 [facility] Activated partial thrombopla stin time (aPTT) in platelet poor plasma by coagulation aOrdered By: Ling Jeffries on 10-03-2023 aPTT Coag (PPP) [Time] 29.3 s 24.1-36.2 [facility] Automated lymphocyte count a s percentage of total leukocytesOrdered By: Ling Jeffries on 10-03-2023 Lymphocytes/100 WBC Auto (Unsp spec) 29.1 % 19-41 [facility] Basic Metabolic Profile (BMP )on 10-03-2023 BUN/CRE 21.5 RATIO High - [facility] Comment on above: Performed By: #### L 100.0100, L500.2500, L300.3900, L300.4310 #### [facility] Laboratory [address] [place], [address] CA,Total 9.3 mg/dL Normal 8.5-10.1 [facility] Comment on above: Performed By: #### L 100.0100, L500.2500, L300.3900, L300.4310 #### [facility] Laboratory [address] [place], [address] Chloride [Moles/Vol] 107 mmol/L Normal 98-107 [facility] Comment on above: Performed By: #### L 100.0100, L500.2500, L300.3900, L300.4310 #### [facility] Laboratory [address] [place], [address] CO2 [Moles/Vol] 30.0 mmol/L Normal 21.0-32.0 [facility] Comment on above: Performed By: #### L 100.0100, L500.2500, L300.3900, L300.4310 #### [facility] Laboratory [address] [place], [address] Creatinine [Mass/Vol] 0.79 mg/dL Normal 0.55-1.02 [facility] Comment on above: Result Comment: The validity of the calculated GFR GFRAA in patients over 70 years has not been determined. Clinical correlation is essential. Performed By: #### L 100.0100, L500.2500, L300.3900, L300.4310 #### [facility] Laboratory [address] [place], [address] EST GFR - AA 94 mL/min Normal >60 [facility] Comment on above: Result Comment: Afri can [employer] GFR Calc Performed By: #### L 100.0100, L500.2500, L300.3900, L300.4310 #### [facility] Laboratory [address] [place], [address] GAP 4 Low 5-15 [facility] Comment on above: Performed By: #### L 100.0100, L500.2500, L300.3900, L300.4310 #### [facility] Laboratory [address] [place], [address] GFR/1.73 sq M.predicted among non-blacks MDRD (S/P/Bld) [Vol rate/Area] 78 mL/min/{1.73_m2} Normal >60 [facility] Comment on above: Result Comment: Non- GFR Calc Performed By: #### L 100.0100, L500.2500, L300.3900, L300.4310 #### [facility] Laboratory [address] [place], [address] Glucose [Mass/Vol] 99 mg/dL Normal 74-[address] [facility] Comment on above: Performed By: #### L 100.0100, L500.2500, L300.3900, L300.4310 #### [facility] Laboratory [address] [place], [address] Potassium [Moles/Vol] 4.2 mmol/L Normal 3.5-5.1 [facility] Comment on above: Performed By: #### L 100.0100, L500.2500, L300.3900, L300.4310 #### [facility] Laboratory [address] [place], [address] Sodium [Moles/Vol] 141 mmol/L Normal 136-[address] [facility] Comment on above: Performed By: #### L 100.0100, L500.2500, L300.3900, L300.4310 #### [facility] Laboratory [address] [place], [address] Urea nitrogen [Mass/Vol] 17 mg/dL Normal 7-18 [facility] Comment on above: Performed By: #### L 100.0100, L500.2500, L300.3900, L300.4310 #### [facility] Laboratory [address] [place], [address] Basophil percentageOrdered B y: Ling Jeffries on 10-03-2023 Basophils/100 WBC (Bld) 1.3 % 0-1 [facility] Chloride [Moles/Vol] 107 mmol/L 98-107 [facility] Eosinophils/100 WBC (Bld) 1.9 % 0-5 [facility] Glucose [Mass/Vol] 99 mg/dL 74-[address] [facility] Hemoglobin (Bld) [Mass/Vol] 13.4 g/dL 12.0-15.0 [facility] Monocytes/100 WBC (Bld) 8.0 % 0-10 [facility] Neutrophils (Bld) [#/Vol] 2.8 10*3/uL 2.0-7.7 [facility] Neutrophils/100 WBC (Bld) 59.7 % 47-70 [facility] Potassium [Moles/Vol] 4.2 mmol/L 3.5-5.1 [facility] Sodium [Moles/Vol] 141 mmol/L 136-[address] [facility] WBC (Bld) [#/Vol] 4.6 10*3/uL 4.4-11.[address] [facility] CBC W/Diff, Automatedon 02- 0-2023 Absolute Lymph 1.35 X10 3/uL Normal 0.83-4.51 [facility] Comment on above: Performed By: #### L 100.0100, L500.2500, L300.3900, L300.4310 #### [facility] Laboratory [address] [place], [address] Absolute Neut 2.8 X10 3/uL Normal 2.0-7.7 [facility] Comment on above: Performed By: #### L 100.0100, L500.2500, L300.3900, L300.4310 #### [facility] Laboratory [address] [place], [address] Basophils/100 WBC (Bld) 1.3 % High 0-1 [facility] Comment on above: Performed By: #### L 100.0100, L500.2500, L300.3900, L300.4310 #### [facility] Laboratory [address] [place], [address] Eosinophils/100 WBC (Bld) 1.9 % Normal 0-5 [facility] Comment on above: Performed By: #### L 100.0100, L500.2500, L300.3900, L300.4310 #### [facility] Laboratory [address] [place], [address] Erythrocyte distribution width (RBC) [Ratio] 12.5 % Normal 11.6-14.6 [facility] Comment on above: Performed By: #### L 100.0100, L500.2500, L300.3900, L300.4310 #### [facility] Laboratory [address] [place], [address] Hematocrit (Bld) [Volume fraction] 40.2 % Normal 37-47 [facility] Comment on above: Performed By: #### L 100.0100, L500.2500, L300.3900, L300.4310 #### [facility] Laboratory [address] [place], [address] Hemoglobin (Bld) [Mass/Vol] 13.4 g/dL Normal 12.0-15.0 [facility] Comment on above: Performed By: #### L 100.0100, L500.2500, L300.3900, L300.4310 #### [facility] Laboratory [address] [place], [address] IG% 0.000 Normal 0.0-0.9 [facility] Comment on above: Result Comment: IG% - Immature Granulocytes (promyelocytes, myelocytes and metamyelocytes) > 1% indicates that a LEFT SHIFT is Present. Performed By: #### L 100.0100, L500.2500, L300.3900, L300.4310 #### [facility] Laboratory [address] [place], [address] Lymphocytes/100 WBC (Bld) 29.1 % Normal 19-41 [facility] Comment on above: Performed By: #### L 100.0100, L500.2500, L300.3900, L300.4310 #### [facility] Laboratory [address] [place], [address] MCH (RBC) [Entitic mass] 31.2 pg Normal 27.0-32.0 [facility] Comment on above: Performed By: #### L 100.0100, L500.2500, L300.3900, L300.4310 #### [facility] Laboratory [address] [place], [address] MCHC (RBC) [Mass/Vol] 33.3 g/dL Normal 32-36 [facility] Comment on above: Performed By: #### L 100.0100, L500.2500, L300.3900, L300.4310 #### [facility] Laboratory [address] [place], [address] MCV (RBC) [Entitic vol] 93.5 fL Normal 81-99 [facility] Comment on above: Performed By: #### L 100.0100, L500.2500, L300.3900, L300.4310 #### [facility] Laboratory [address] [place], [address] Monocytes/100 WBC (Bld) 8.0 % Normal 0-10 [facility] Comment on above: Performed By: #### L 100.0100, L500.2500, L300.3900, L300.4310 #### [facility] Laboratory [address] [place], [address] Neutrophils/100 WBC (Bld) 59.7 % Normal 47-70 [facility] Comment on above: Performed By: #### L 100.0100, L500.2500, L300.3900, L300.4310 #### [facility] Laboratory [address] [place], [address] Nucleated RBC (Bld) [#/Vol] 0 10*3/uL Normal 0-5 [facility] Comment on above: Performed By: #### L 100.0100, L500.2500, L300.3900, L300.4310 #### [facility] Laboratory [address] [place], [address] Platelet mean volume (Bld) [Entitic vol] 10.3 fL Normal 6.2-12.0 [facility] Comment on above: Performed By: #### L 100.0100, L500.2500, L300.3900, L300.4310 #### [facility] Laboratory [address] [place], [address] Platelets (Bld) [#/Vol] 201 10*3/uL Normal 150-450 [facility] Comment on above: Performed By: #### L 100.0100, L500.2500, L300.3900, L300.4310 #### [facility] Laboratory [address] [place], [address] RBC (Bld) [#/Vol] 4.30 10*6/uL Normal 4.2-5.4 [facility] Comment on above: Performed By: #### L 100.0100, L500.2500, L300.3900, L300.4310 #### [facility] Laboratory [address] [place], [address] RDW SD 43.1 fl Normal 35.1-43.9 [facility] Comment on above: Performed By: #### L 100.0100, L500.2500, L300.3900, L300.4310 #### [facility] Laboratory [address] [place], [address] WBC (Bld) [#/Vol] 4.6 10*3/uL Normal 4.4-11.[address] [facility] Comment on above: Performed By: #### L 100.0100, L500.2500, L300.3900, L300.4310 #### [facility] Laboratory [address] [place], [address] Chest PA and Lateralon 10-03 Chest PA and Lateral [facility] Imaging Services [address] [place] [address] Chest PA and Lateral MR#: [id number] Acct: [id number] Name: MARY VICTOR I Rep #: [id number] : 1955 F 67 From: Jimenez diamond MD PCP: Dr. Kaushal Gastelum MD [place] [facility] [place]: Chest PA and Lateral Date of Exam: 10/03/23 Exam# [id number] Ordering Dr: Ling Jeffries [place] [id number] STUDY: X-RAY CHEST REASON FOR EXAM: Female, 67 years old. Abn EKG TECHNIQUE: PA and lateral views of the chest. COMPARISON: Comparison is made with prior study dated November 13, 2020. FINDINGS: Hyperinflation. The lungs are clear. There is no demonstrated pleural abnormality. Normal size heart. Normal mediastinum and isidro. Normal visualized pulmonary arteries. Normal visualized aortic arch and descending thoracic aorta. Normal visualized thoracic spine. Normal visualized ribs, clavicles, and shoulders. There is no demonstrated abnormality of the visualized soft tissue structures of the upper abdomen. RAD/Chest PA and Lateral IMPRESSION: Hyperinflation. The lungs are clear. Electronically Signed: Jimenez Perera MD at 15:39 EST , CC: Dr. Kaushal Gastelum MD; AGNES Viveros Brush Trimming Machine Setter: Signed Normal [facility] Determination of erythrocyte mean corpuscular volume (MCV)Ordered By: Ling Jeffries on 10-03-2023 MCV (RBC) [Entitic vol] 93.5 fL 81-99 [facility] Erythrocyte distribution wid th ratioOrdered By: Ling Jeffries on 10-03-2023 Erythrocyte distribution width (RBC) [Ratio] 12.5 % 11.6-14.6 [facility] Erythrocyte distribution wid th standard deviationOrdered By: Ling Jeffries on 10-03-2023 Erythrocyte distribution width (RBC) [Entitic vol] 43.1 fL 35.1-43.9 [facility] Hematocrit Auto (Bld) [Volum e fraction]Ordered By: Ling Jeffries on 10-03-2023 Hematocrit (Bld) [Volume fraction] 40.2 % 37-47 [facility] Immature granulocytes/100 WB C Auto (Bld)Ordered By: Ling Jeffries on 10-03-2023 Immature granulocytes/100 WBC (Bld) 0.000 % 0.0-0.9 [facility] Comment on above: IG% - Immature Granu locytes (promyelocytes, myelocytes and metamyelocytes) > 1% indicates that a LEFT SHIFT is Present. Laboratory - Chemistry and C hemistry - challengeOrdered By: Ling Jeffries on 10-03-2023 CO2 [Moles/Vol] 30.0 mmol/L 21.0-32.0 [facility] Urea nitrogen/Creatinine [Mass ratio] 21.5 mg/mg 10- [facility] Laboratory - CoagulationOrde red By: Ling Jeffries on 10-03-2023 INR Coag (Bld) [Relative time] 1.0 {INR} [facility] PT Coag (PPP) [Time] 13.0 s 11.7-14.9 [facility] Laboratory - Hematology and Cell countsOrdered By: Ling Jeffries on 10-03-2023 MCH (RBC) [Entitic mass] 31.2 pg 27.0-32.0 [facility] MCHC (RBC) [Mass/Vol] 33.3 g/dL 32-36 [facility] Nucleated RBC/100 WBC (Bld) [Ratio] 0 % 0-5 [facility] Platelet mean volume (Bld) [Entitic vol] 10.3 fL 6.2-12.0 [facility] Platelets (Bld) [#/Vol] 201 10*3/uL 150-450 [facility] No Panel InformationOrdered By: Ling Jeffries on 10-03-2023 Estimated GFR (MDRD) Amer 94 mL/min >60 [facility] Comment on above: GFR Calc Estimated GFR (MDRD) Non-Af Amer 78 mL/min >60 [facility] Comment on above: Non- GFR Calc Partial Thromboplast Timeon 10-03-2023 aPTT Coag (Bld) [Time] 29.3 s Normal 24.1-36.2 [facility] Comment on above: Performed By: #### L 100.0100, L500.2500, L300.3900, L300.4310 #### [facility] [address] [place], [address] Prothrombin Time w/INRon INR Coag (PPP) [Relative time] 1.0 {INR} Normal [facility] Comment on above: Performed By: #### L 100.0100, L500.2500, L300.3900, L300.4310 #### [facility] [address] [place], [address] PT Coag (PPP) [Time] 13.0 s Normal 11.7-14.9 [facility] Comment on above: Performed By: #### L 100.0100, L500.2500, L300.3900, L300.4310 #### [facility] [address] [place], [address] RBC Auto (Bld) [#/Vol]Ordere d By: Ling Jeffries on 10-03-2023 RBC (Bld) [#/Vol] 4.30 10*6/uL 4.2-5.4 [facility] Serum or plasma calcium tona urement (mass/volume)Ordered By: Ling Jeffries on 10-03-2023 Calcium [Mass/Vol] 9.3 mg/dL 8.5-10.[address] [facility] Serum or plasma creatinine m easurement (mass/volume)Ordered By: Ling Jeffries on 10-03-2023 Creatinine [Mass/Vol] 0.79 mg/dL 0.55-1.02 [facility] Comment on above: The validity of the calculated GFR & GFRAA in patients over 70 years has not been determined. Clinical correlation is essential. Serum or plasma urea nitroge n measurement (mass/volume)Ordered By: Ling Jeffries on 10-03-2023 Urea nitrogen [Mass/Vol] 17 mg/dL 7-18 [facility] Thin prep Papanicolaou smear with manual screeningOrdered By: Ling Jeffries on 10-03-2023 Thin prep Papanicolaou smear with manual screening 4 5-15 [facility] Stress Reporton 09-27-2023 Stress Report [facility] [address] [place] [address] MR#: [id number] Acct: [id number] Name: MARY VICTOR I Rep #: [id number] : 1955 67 From: Deborah Noland MD Primary Care: Dr. Kaushal Gastelum MD Status: REG CLI Referring Dr: Ling Jeffries Sex: F C Stress Test Report Date: 09/26/2023 Procedure: Exercise tolerance test/imaging study Indications: Preoperative evaluation Consent: Per the patient Procedure: The patient exercised on a Bradley protocol for 7 minutes and 30 seconds achieving a peak heart rate of 148 bpm (95% predicted maximal heart rate) with a peak blood pressure 200/78 mmHg and a peak MET capacity of 10.1 METs. The baseline ECG demonstrated sinus rhythm, right bundle branch block, nonspecific ST-T changes. The peak exercise ECG demonstrated sinus tachycardia with about 1 mm horizontal to downsloping ST depressions in leads V3 and V4. Upsloping ST depressions noted in inferior leads and also V5 and V6. EKG during recovery revealed return of ST segments to baseline. There were 2 episodes of 3 beat runs of nonsustained V. tach and an 8 beat run of nonsustained V. tach in the recovery period. [There were no cardiac dysrhythmias pretest, during exercise, or recovery]. The functional capacity was considered normal for age. There was [no complaint of chest discomfort during exercise or recovery]. The examination was discontinued secondary to achieving target heart rate. Impression: 1. Technically adequate (percent predicted maximal heart rate greater than 85%) exercise tolerance test 2. Stress test is positive for exercise-induced EKG changes of ischemia and nonsustained V. tach in the recovery phase. 3. The test test is negative for exercise-induced chest pain 4. Functional capacity is normal for age 5. Nuclear images pending Myocardial perfusion imaging study: Technique: The patient was injected with 11.3 mCi of technetium 99m Cardiolite and subsequently rest SPECT Cardiolite nuclear imaging was obtained in the horizontal long, vertical long, and short axis views. The patient exercised on a Bradley protocol. Please see above for details. The patient was injected with 33.1 mCi of technetium 99m Cardiolite and subsequently stress SPECT Cardiolite nuclear imaging was obtained in the horizontal long, vertical long, and short axis views. A gated Cardiolite study at peak stress was obtained. Interpretation: Rest and stress SPECT Cardiolite nuclear imaging status post realignment, normalization, and attenuation correction, demonstrates overall normal myocardial radioisotope uptake. The gated Cardiolite study demonstrates no significant regional wall motion abnormalities. The reported LVEF is greater than 70%. Impression: 1. There is no evidence of significant ischemia or infarction. 2. The gated Cardiolite study reports an LVEF of greater than 70%. This note was generated with [employer] dictation software. It may contain incorrect words, spelling, and punctuation that were not noted in checking the note before signing. 09/27/23 1325 Date Deborah Noland MD CC: Dr. Kaushal Gastelum MD; AGNES Viveros Date Dictated: 09/27/23 1315 Date Transcribed: 09/27/231314 Brush Trimming Machine Setter: NN Signed Normal [facility] Cardiology Visit Reporton Cardiology Visit Report [facility] [address] [place], [place] [address] OFFICE VISIT Date of Service: 09/26/23 MR#: [id number] Acct: [id number] Name: MARY VICTOR I Rep #: [id number] : 1955 Provider: AGNES Schwab Age/Sex: 67/F Location: [facility] Status: Signed [facility] History of Present Illness Details: Mary Victor is a 67-year-old female that presents here today for a pre-operative clearance. In 2014 She presented to [facility] ER with substernal chest burning, radiating to her neck. A 12-lead EKG demonstrated ST elevation in the anterolateral leads with reciprocal ST segment depression inferiorly. She underwent emergent transfer to [facility] and emergent coronary angiography via the right radial approach. Her left main was normal, her LAD had a 95% mid vessel stenosis at the origin of the 2nd diagonal, and nonobstructive disease of her left circumflex and right coronary artery. She received a 2.25X 32 everolimus stent, postdilated to 2.25 mm. Her EF at that time was 45-50% with hypokinesis of the mid to distal anterior and apical aguilar. From my understanding her peak troponin was around 11, and she was subsequently sent home. There is also some nonobstructive 30% lesions in her left circumflex. She also has a history of hypertension hyperlipidemia. Pt notes that she was scheduled for a colonoscopy, her EKG was reviewed from last summer when she was in the ER. T wave changes were noted. She did undergo a stress test this morning. From a cardiac standpoint, patient is doing well. She does not have any chest discomfort/heaviness /tightness. Her exercise tolerance is stable for her age. She does not have any worsening symptoms of shortness of breath. She does not have any orthopnea. She denies PND. She does not have any symptoms of congestive heart failure. She does not have any palpitations that she is aware of. She does not have any lightheadedness or dizziness. She does not have any near- syncope or syncope. She does not have any lower extremity edema. She does not have any symptoms of claudication. Intake Vital Signs 06/05/23 13:35 09/26/23 08:38 Height 5 ft 9 in 5 ft 9 in Weight: 162 lb 157 lb 6 oz BMI 23.9 23.2 BP 151/84 H Blood Pressure Location Lt brachial Position Sitting Respiration 14 Pulse 69 Pulse Source Monitor Comment Cardiac stable,yearly visit. Intake Visit Reasons: SURGICAL CLEARANCE Mandarin Tutor Required: No Accompanied by: Self Is patient in pain?: No Allergies codeine Allergy (Verified 09/26/23 08:49) Itching lisinopril Adverse Reaction (Intermediate, Verified 09/26/23 08:49) cough Medications aspirin 81 mg tablet,delayed release (Adult Low Dose Aspirin) 81 mg PO DAILY 12/09/20 [History Confirmed 09/26/23] atorvastatin 80 mg tablet 80 mg PO QHS #90 tabs 10/25/21 [Rx Confirmed 09/26/23] hydrochlorothiazide 25 mg tablet 25 mg PO DAILY #90 tabs 04/19/22 [Rx Confirmed 09/26/23] metoprolol tartrate 25 mg tablet 25 mg PO BID 06/05/23 [History Confirmed 09/26/23] vhdfchuzexyu-Pe-ejqo -minerals 18 mg-0.4 mg tablet 1 tab PO DAILY 06/05/23 [History Confirmed 09/26/23] tizanidine 4 mg capsule 4 mg PO QHS PRN muscle spasticity 06/05/23 [History Confirmed 09/26/23] vitamin D3 125 mcg (5,000 unit)-vitamin K2 90 mcg capsule 1 cap PO DAILY 06/05/23 [History Confirmed 09/26/23] losartan 25 mg tablet 50 mg PO DAILY 09/26/23 [History Confirmed 09/26/23] Ejection fraction %: 65 to 70 [facility] Medical History Allergies Arthritis Atherosclerosis of [place] coronary artery of [place] heart without angina pectoris Bilateral headaches Cardiology follow-up encounter Essential (primary) hypertension Former smoker History of echocardiogram History of stress test Hx of colonic polyp Mixed hyperlipidemia Non-rheumatic tricuspid valve insufficiency Old myocardial infarction ( 11/18/14) Wears glasses Surgical History H/O hernia repair H/O total hysterectomy History of coronary artery stent placement ( 11/18/14) Hx of colonoscopy Family History Other Cancer Hypertension Social History current occupational status: employed current occupation: [employer] Smoking Status: Former smoker alcohol intake: current alcohol intake frequency: a few times a month Alcohol type: wine substance use type: does not use what type of physical activity do you participate in: walking frequency: 3-4 times per week ROS Const Const: Positive for difficulty sleeping; Negative for fatigue, weakness, headache(s) or daytime sleepiness Eyes Eyes: Negative for change in vis (more content not included)... Normal [facility] Absolute lymphocyte countOrd ered By: HEALTH ASSESSMENT on 03-22-2023 Lymphocytes Auto (Unsp spec) [#/Vol] 1.20 10*3/uL 0.83-4.51 [facility] Absolute reticulocyte countO rdered By: HEALTH ASSESSMENT on 03-22-2023 Reticulocytes (Bld) [#/Vol] 0.00 10*3/uL 0-5 [facility] Basophil percentageOrdered B y: HEALTH ASSESSMENT on 03-22-2023 Basophil percentage 3.7 mg/dL 2.5-4.9 [facility] Bilirubin [Mass/Vol] 1.10 mg/dL 0.20-1.00 [facility] Comment on above: For patients on eltr ombopag therapy, use of Dimension Stephan TBIL is not recommended. Chloride [Moles/Vol] 107 mmol/L 98-107 [facility] Cholesterol [Mass/Vol] 154 mg/dL <200 [facility] Comment on above: <200 mg/dL Desirable 200-240 mg/dL Borderline >240 mg/dL High Risk Glucose [Mass/Vol] 92 mg/dL 74-[address] [facility] LDH [Catalytic activity/Vol] 208 U/L 84-246 [facility] Neutrophils (Bld) [#/Vol] 2.4 10*3/uL 2.0-7.7 [facility] Potassium [Moles/Vol] 3.9 mmol/L 3.5-5.1 [facility] Protein [Mass/Vol] 6.6 g/dL 6.4-8.[address] [facility] Sodium [Moles/Vol] 139 mmol/L 136-[address] [facility] Triglyceride [Mass/Vol] 51 mg/dL <199 [facility] Comment on above: The drugs N-Acetylcy steine and Metamizole may falsely depress this assay.Serum Triglycerides Reference Interval Normal <150 mg/dL Borderline high 150 - 199 mg/dL High 200 - 499 mg/dL Very High > or = 500 mg/dL WBC (Bld) [#/Vol] 4.0 10*3/uL 4.4-11.[address] [facility] Bilirubin Test strip Ql (U)O rdered By: HEALTH ASSESSMENT on 03-22-2023 Bilirubin Ql (U) Negative Negative [facility] Blood erythrocytes count (nu mber/volume)Ordered By: HEALTH ASSESSMENT on 03-22-2023 RBC (Bld) [#/Vol] 4.36 10*6/uL 4.2-5.4 [facility] Blood hemoglobin measurement (mass/volume)Ordered By: HEALTH ASSESSMENT on 03-22-2023 Hemoglobin (Bld) [Mass/Vol] 13.6 g/dL 12.0-15.0 [facility] Blood platelet mean volumeOr dered By: HEALTH ASSESSMENT on 03-22-2023 Platelet mean volume (Bld) [Entitic vol] 10.5 fL 6.2-12.0 [facility] Determination of erythrocyte mean corpuscular volume (MCV)Ordered By: HEALTH ASSESSMENT on 03-22-2023 MCV (RBC) [Entitic vol] 94.0 fL 81-99 [facility] Direct bilirubinOrdered By: HEALTH ASSESSMENT on 03-22-2023 Bilirubin.direct [Mass/Vol] 0.27 mg/dL 0.00-0.30 [facility] Hematocrit Auto (Bld) [Volum e fraction]Ordered By: HEALTH ASSESSMENT on 03-22-2023 Hematocrit (Bld) [Volume fraction] 41.0 % 37-47 [facility] Ketones Test strip Ql (U)Ord ered By: HEALTH ASSESSMENT on 03-22-2023 Ketones Ql (U) Negative Negative [facility] Laboratory - Chemistry and C hemistry - challengeOrdered By: HEALTH ASSESSMENT on 03-22-2023 ALP [Catalytic activity/Vol] 71 U/L 45-117 [facility] ALT [Catalytic activity/Vol] 31 U/L 13-56 [facility] Cholesterol.total/Choles terol in HDL [Mass ratio] 1.90 {ratio} [facility] CO2 [Moles/Vol] 26.0 mmol/L 21.0-32.0 [facility] Globulin (S) [Mass/Vol] 3.1 g/dL 2.2-4.2 [facility] Urea nitrogen/Creatinine [Mass ratio] 19.6 mg/mg 10-20 [facility] Laboratory - Hematology and Cell countsOrdered By: HEALTH ASSESSMENT on 03-22-2023 Erythrocyte distribution width (RBC) [Entitic vol] 43.1 fL 35.1-43.9 [facility] Erythrocyte distribution width (RBC) [Ratio] 12.4 % 11.6-14.6 [facility] MCH (RBC) [Entitic mass] 31.2 pg 27.0-32.0 [facility] Nucleated RBC/100 WBC (Bld) [Ratio] 0 % 0-5 [facility] MCHC Auto (RBC) [Mass/Vol]Or dered By: HEALTH ASSESSMENT on 03-22-2023 MCHC (RBC) [Mass/Vol] 33.2 g/dL 32-36 [facility] Nitrite Test strip Ql (U)Ord ered By: HEALTH ASSESSMENT on 03-22-2023 Nitrite Ql (U) Negative Negative [facility] No Panel InformationOrdered By: HEALTH ASSESSMENT on 03-22-2023 Estimated GFR (MDRD) Amer 90 mL/min >60 [facility] Comment on above: GFR Calc Estimated GFR (MDRD) Non-Af Amer 75 mL/min >60 [facility] Comment on above: Non- GFR Calc Platelets bldOrdered By: [facility] ASSESSMENT on 03-22-2023 Platelets (Bld) [#/Vol] 196 10*3/uL 150-450 [facility] Protein Test strip Ql (U)Ord ered By: HEALTH ASSESSMENT on 03-22-2023 Protein Ql (U) Negative Negative [facility] Segmented neutrophils/100 WB C Auto (Bld)Ordered By: HEALTH ASSESSMENT on 03-22-2023 Segmented neutrophils/100 WBC (Bld) 58.7 % 47-70 [facility] Serum or plasma albumin tona urement (mass/volume)Ordered By: HEALTH ASSESSMENT on 03-22-2023 Albumin [Mass/Vol] 3.5 g/dL 3.2-5.[address] [facility] Serum or plasma albumin/glob ulin mass ratioOrdered By: HEALTH ASSESSMENT on 03-22-2023 Albumin/Globulin [Mass ratio] 1.1 {ratio} 0.9-2.4 [facility] Serum or plasma calcium tona urement (mass/volume)Ordered By: HEALTH ASSESSMENT on 03-22-2023 Calcium [Mass/Vol] 8.9 mg/dL 8.5-10.[address] [facility] Serum or plasma cholesterol in HDL measurement (mass/volume)Ordered By: HEALTH ASSESSMENT on 03-22-2023 Cholesterol in HDL [Mass/Vol] 82 mg/dL >40 [facility] Comment on above: The drugs N-Acetylcy steine and Metamizole may falsely depress this assay. Reference Range HDL <40 mg/dL Low HDL Cholesterol HDL >or= 60 mg/dL High HDL Cholesterol Serum or plasma cholesterol in VLDL measurement (mass/volume)Ordered By: HEALTH ASSESSMENT on 03-22-2023 Cholesterol in VLDL [Mass/Vol] 10 mg/dL 5-40 [facility] Serum or plasma creatinine m easurement (mass/volume)Ordered By: HEALTH ASSESSMENT on 03-22-2023 Creatinine [Mass/Vol] 0.82 mg/dL 0.55-1.02 [facility] Comment on above: The validity of the calculated GFR & GFRAA in patients over 70 years has not been determined. Clinical correlation is essential. Serum or plasma low density lipoprotein (LDL) cholesterol measurement (mass/volume)Ordered By: HEALTH ASSESSMENT on 03-22-2023 Cholesterol in LDL [Mass/Vol] 62 mg/dL 0-130 [facility] Serum or plasma urea nitroge n measurement (mass/volume)Ordered By: HEALTH ASSESSMENT on 03-22-2023 Urea nitrogen [Mass/Vol] 16 mg/dL 7-18 [facility] Serum or plasma uric acid me asurement (mass/volume)Ordered By: HEALTH ASSESSMENT on 03-22-2023 Urate [Mass/Vol] 5.9 mg/dL 2.6-6.0 [facility] Comment on above: The drugs N-Acetylcy steine and Metamizole may falsely depress this assay. Thin prep Papanicolaou smear with manual screeningOrdered By: HEALTH ASSESSMENT on 03-22-2023 Thin prep Papanicolaou smear with manual screening 22 U/L 15-37 [facility] Thin prep Papanicolaou smear with manual screening 6 5-15 [facility] Urine blood detectionOrdered By: HEALTH ASSESSMENT on 03-22-2023 RBC Ql (U) Negative Negative [facility] Urine clarityOrdered By: [facility] ASSESSMENT on 03-22-2023 Clarity (U) Clear Clear [facility] Urine color determinationOrd ered By: HEALTH ASSESSMENT on 03-22-2023 Color (U) Yellow Yellow [facility] Urine glucose detectionOrder ed By: HEALTH ASSESSMENT on 03-22-2023 Glucose Ql (U) Normal mg/dl Normal [facility] Urine leukocyte esterase det ection by dipstickOrdered By: HEALTH ASSESSMENT on 03-22-2023 Leukocyte esterase Test strip Ql (U) 25 /ul Negative [facility] Urine pHOrdered By: HEALTH A SSESSMENT on 03-22-2023 pH (U) 7.0 [pH] 5.0 - 8.0 [facility] Urine specific gravity measu rementOrdered By: HEALTH ASSESSMENT on 03-22-2023 Specific gravity (U) [Rel density] 1.010 1.002-1.030 [facility] Urobilinogen Auto test strip Ql (U)Ordered By: HEALTH ASSESSMENT on 03-22-2023 Urobilinogen Ql (U) Normal mg/dl Normal [facility] Absolute lymphocyte countOrd ered By: Dr. Hurst on 01-16-2023 Lymphocytes Auto (Unsp spec) [#/Vol] 1.38 10*3/uL 0.83-4.51 [facility] Basophil percentageOrdered B y: Dr. Hurst on 01-16-2023 Basophils/100 WBC (Bld) 0.9 % 0-1 [facility] Chloride [Moles/Vol] 107 mmol/L 98-107 [facility] Eosinophils/100 WBC (Bld) 1.4 % 0-5 [facility] Glucose [Mass/Vol] 99 mg/dL 74-[address] [facility] Neutrophils (Bld) [#/Vol] 3.9 10*3/uL 2.0-7.7 [facility] Neutrophils/100 WBC (Bld) 66.4 % 47-70 [facility] Potassium [Moles/Vol] 3.1 mmol/L 3.5-5.1 [facility] Sodium [Moles/Vol] 142 mmol/L 136-[address] [facility] WBC (Bld) [#/Vol] 5.9 10*3/uL 4.4-11.[address] [facility] Blood erythrocytes count (nu mber/volume)Ordered By: Dr. Hurst on 01-16-2023 RBC (Bld) [#/Vol] 4.23 10*6/uL 4.2-5.4 [facility] Blood hemoglobin measurement (mass/volume)Ordered By: Dr. Hurst on 01-16-2023 Hemoglobin (Bld) [Mass/Vol] 13.0 g/dL 12.0-15.0 [facility] Blood lymphocytes/100 leukoc ytesOrdered By: Dr. Hurst on 01-16-2023 Lymphocytes/100 WBC (Bld) 23.6 % 19-41 [facility] Blood monocytes/100 leukocyt esOrdered By: Dr. Hurst on 01-16-2023 Monocytes/100 WBC (Bld) 7.5 % 0-10 [facility] Blood platelet mean volumeOr dered By: Dr. Hurst on 01-16-2023 Platelet mean volume (Bld) [Entitic vol] 10.2 fL 6.2-12.0 [facility] Determination of erythrocyte mean corpuscular volume (MCV)Ordered By: Dr. Hurst on 01-16-2023 MCV (RBC) [Entitic vol] 93.6 fL 81-99 [facility] Hematocrit Auto (Bld) [Volum e fraction]Ordered By: Dr. Hurst on 01-16-2023 Hematocrit (Bld) [Volume fraction] 39.6 % 37-47 [facility] Laboratory - Chemistry and C hemistry - challengeOrdered By: Dr. Hurst on 01-16-2023 CO2 [Moles/Vol] 29.0 mmol/L 21.0-32.0 [facility] Urea nitrogen/Creatinine [Mass ratio] 11.9 mg/mg 10-20 [facility] Laboratory - Hematology and Cell countsOrdered By: Dr. Hurst on 01-16-2023 Erythrocyte distribution width (RBC) [Entitic vol] 42.7 fL 35.1-43.9 [facility] Erythrocyte distribution width (RBC) [Ratio] 12.4 % 11.6-14.6 [facility] Immature granulocytes/100 WBC (Bld) 0.200 % 0.0-0.9 [facility] Comment on above: IG% - Immature Granu locytes (promyelocytes, myelocytes and metamyelocytes) > 1% indicates that a LEFT SHIFT is Present. MCH (RBC) [Entitic mass] 30.7 pg 27.0-32.0 [facility] Nucleated RBC/100 WBC (Bld) [Ratio] 0 % 0-5 [facility] MCHC Auto (RBC) [Mass/Vol]Or dered By: Dr. Hurst on 01-16-2023 MCHC (RBC) [Mass/Vol] 32.8 g/dL 32-36 [facility] No Panel InformationOrdered By: Dr. Hurst on 01-16-2023 Estimated Creatinine Clearance Calc 77.12 ml/min [facility] Estimated GFR (MDRD) Amer 99 mL/min >60 [facility] Comment on above: GFR Calc Estimated GFR (MDRD) Non-Af Amer 82 mL/min >60 [facility] Comment on above: Non- GFR Calc Platelets bldOrdered By: Dr. Hurst on 01-16-2023 Platelets (Bld) [#/Vol] 194 10*3/uL 150-450 [facility] Serum or plasma calcium tona urement (mass/volume)Ordered By: Dr. Hurst on 01-16-2023 Calcium [Mass/Vol] 9.4 mg/dL 8.5-10.[address] [facility] Serum or plasma creatinine m easurement (mass/volume)Ordered By: Dr. Hurst on 01-16-2023 Creatinine [Mass/Vol] 0.76 mg/dL 0.55-1.02 [facility] Comment on above: The validity of the calculated GFR & GFRAA in patients over 70 years has not been determined. Clinical correlation is essential. Serum or plasma urea nitroge n measurement (mass/volume)Ordered By: Dr. Hurst on 01-16-2023 Urea nitrogen [Mass/Vol] 9 mg/dL 7-18 [facility] Thin prep Papanicolaou smear with manual screeningOrdered By: Dr. Hurst on 01-16-2023 Thin prep Papanicolaou smear with manual screening 6 5-15 [facility] Laboratory - Microbiology an d Antimicrobial susceptibilityon 03-25-2022 SARS-CoV-2 (COVID-19) RNA ELIAZAR+probe Ql (Unsp spec) Not detected [facility] Work Phone: PROGRESSon 09-16-2019 PROGRESS HNO ID: [id number] Author: Silva (Uzair Aviles Service: ? Author Type: Enrollment Management Coordinator Type: Progress Notes Filed: 09/16/2019 11:25 AM Note Text: POPULATION HEALTH CONSTRUCTION ASSISTANT QUICKNOTE Provider Action/FYI: Mary returned my call and states she's no longer getting care with Dr. Penaloza. Dr. Penaloza removed as PCP. Patient identified by name and . Silva Aviles CMA [facility] PROGRESS HNO ID: [id number] Author: Silva Aviles Service: ? Author Type: Enrollment Management Coordinator Type: Progress Notes Filed: 09/16/2019 11:25 AM Note Text: POPULATION HEALTH CONSTRUCTION ASSISTANT QUICKNOTE Provider Action/FYI: 2nd attempt - Left message for patient to return call #[phone] Patient identified by name and . Silva Aviles CMA [facility] CNPTOUTREACHon 09-13-2019 CNPTOUTREACH Patient Outreach (INTMWS) MARY VICTOR I ([id number]) 1955 F Date Time Provider Department 09/13[facility] During your visit today, we recorded the following information about you: Silva Aviles CMA 09/16/2019 11:25 AM Signed [facility] CARE GAP REGISTRY DOCUMENTATION (OUTSIDE TEAMLET) Provider [...] units) Date Value 04/28/2015 35 LDL Chol, [place] (mg/dL) Date Value 05/04/2012 148 03/04/2009 148 [...] visit: 05/13/2016 ? Future office visit: Verify pcp/physical/re-esta blish care ANT Acosta [facility] 09/16/2019 11:25 AM Signed [facility] CONSTRUCTION ASSISTANT OLIVIA Provider Action/FYI: 1st attempt - MyChart message sent. Patient identified by name and . ANT Acosta [facility] 09/16/2019 11:25 AM Signed [facility] CONSTRUCTION ASSISTANT OLIVIA Provider Action/FYI: 2nd attempt - Left message for patient to return call #[phone] Patient identified by name and . ANT Acosta [facility] 09/16/2019 11:25 AM Signed [facility] ASSISTANT OLIVIA Provider Action/FYI: Mary returned my call and states she's no longer getting care with Dr. Penaloza. Dr. Penaloza removed as PCP. Patient identified by name and . Silva Aviles CMA Allergies As of Date: 09/13/2019 Noted Allergy Reaction CODEINE 11/18/2008 9 - Itching LISINOPRIL 04/28/2014 3 - Cough Date Reviewed: 05/13/2016 Reviewed by: Allie See LPN - Fully Assessed Reason for Visit: PHMA/Care Gap Outreach [3605] Prescriptions as of 09/13/2019 Sig: LOSARTAN 25 [...] Status:Closed by SILVA AVILES CMA on 09/16/19 [facility] PROGRESSon 09-13-2019 PROGRESS HNO ID: [id number] Author: Silva Aviles Service: ? Author Type: Enrollment Management Coordinator Type: Progress Notes Filed: 09/16/2019 11:25 AM Note Text: POPULATION HEALTH CONSTRUCTION ASSISTANT QUICKNOTE Provider Action/FYI: 1st attempt - [facility] message sent. Patient identified by name and . Silva Aviles CMA [facility] PROGRESS HNO ID: [id number] Author: Silva Aviles Service: ? Author Type: Enrollment Management Coordinator Type: Progress Notes Filed: 09/16/2019 11:25 AM Note Text: [facility] CARE GAP REGISTRY DOCUMENTATION (OUTSIDE TEAMLET) Provider [...] units) Date Value 04/28/2015 35 LDL Chol, [place] (mg/dL) Date Value 05/04/2012 148 03/04/2009 148 [...] visit: 05/13/2016 ? Future office visit: Verify pcp/physical/re-esta huber Aviles CMA [facility] Office Visit: UC: cough/marguerite estionon 05-09-2017 Documentation of current medications (procedure) Done Invalid Interpretation Code [facility] Work Phone: Fall risk assessment No Invalid Interpretation Code [facility] Work Phone: Tobacco use CPHS Former smoker Invalid Interpretation Code [facility] Work Phone: Lab Report: Lipid Profileon 04-18-2017 Cholesterol 146 mg/dL Invalid Interpretation Code 200 [employer] Work Phone: [phone] HDL Cholesterol 88 mg/dL Invalid Interpretation Code [employer] Work Phone: [phone] LDL Cholesterol 50 mg/dL Invalid Interpretation Code 0-130 [employer] Work Phone: [phone] Triglyceride 39 mg/dL Invalid Interpretation Code [employer] Work Phone: [phone] very low density lipoproteins 8 mg/dL Invalid Interpretation Code 5-40 [employer] Work Phone: [phone] Lab Report: Liver Profileon 04-18-2017 Alanine aminotransferase (ALT) 28 U/L Invalid Interpretation Code 12-78 [employer] Work Phone: [phone] Albumin 3.7 g/dL Invalid Interpretation Code 3.4-5.0 [employer] Work Phone: [phone] Alkaline phosphatase (ALP) 75 U/L Invalid Interpretation Code 45-117 [employer] Work Phone: [phone] Aspartate aminotransferase (AST) 24 U/L Invalid Interpretation Code 15-37 [employer] Work Phone: [phone] Bilirubin (direct) 0.18 mg/dL Invalid Interpretation Code 0.00-0.30 [employer] Work Phone: [phone] Bilirubin (total) 0.70 mg/dL Invalid Interpretation Code 0.20-1.00 [employer] Work Phone: [phone] Globulin 3.2 g/dL Invalid Interpretation Code 2.3-3.5 [employer] Work Phone: [phone] Protein 6.9 g/dL Invalid Interpretation Code 6.4-8.2 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-2016 Left ventricular Ejection fraction 65 % Invalid Interpretation Code [facility] Work Phone: Clinical Lists Update: Strep Teston 08-19-2016 Rapid strep test Negative Invalid Interpretation Code [facility] Work Phone: Lab Report: Basic Metabolic Profile (BMP)on 06-08-2016 Anion gap 8 mmol/L Invalid Interpretation Code 5-15 [facility] Work Phone: BUN/Creatinine Ratio 17.2 RATIO Invalid Interpretation Code 10-20 [facility] Work Phone: Calcium 8.5 mg/dL Invalid Interpretation Code 8.5-10.1 [facility] Work Phone: Chloride 106 mmol/L Invalid Interpretation Code 98-107 [facility] Work Phone: CO2 29.0 mmol/L Invalid Interpretation Code 21.0-32.0 [facility] Work Phone: Creatinine 0.76 mg/dL Invalid Interpretation Code 0.55-1.20 [facility] Work Phone: eGFR (non-black) 101 mL/min/{1.73_m2} Invalid Interpretation Code >60 [facility] Work Phone: eGFR (non-black) 83 mL/min/{1.73_m2} Invalid Interpretation Code >60 [facility] Work Phone: Glucose 90 mg/dL Invalid Interpretation Code 70-110 [facility] Work Phone: Potassium 3.8 mmol/L Invalid Interpretation Code 3.5-5.1 [facility] Work Phone: Sodium 143 mmol/L Invalid Interpretation Code 136-145 [facility] Work Phone: Urea nitrogen 13 mg/dL Invalid Interpretation Code 7-18 [facility] Work Phone: Chart Maintenanceon 05-25-20 16 Cholesterol 128 mg/dL Invalid Interpretation Code [facility] Work Phone: HDL Cholesterol 74 mg/dL Invalid Interpretation Code [facility] Work Phone: LDL Cholesterol 47 mg/dL Invalid Interpretation Code [facility] Work Phone: Triglyceride 34 mg/dL Invalid Interpretation Code [facility] Work Phone: Lab Report: Lipid Profileon 10-23-2015 very low density lipoproteins 12 mg/dL Invalid Interpretation Code 5-40 [facility] Work Phone: Lab Report: Liver Profileon 10-23-2015 Alanine aminotransferase (ALT) 27 U/L Invalid Interpretation Code 12-78 [facility] Work Phone: Albumin 3.8 g/dL Invalid Interpretation Code 3.4-5.0 [facility] Work Phone: Alkaline phosphatase (ALP) 69 U/L Invalid Interpretation Code 50-136 [facility] Work Phone: Aspartate aminotransferase (AST) 16 U/L Invalid Interpretation Code 15-37 [facility] Work Phone: Bilirubin (direct) 0.19 mg/dL Invalid Interpretation Code 0.00-0.30 [facility] Work Phone: Bilirubin (total) 0.70 mg/dL Invalid Interpretation Code 0.20-1.00 [facility] Work Phone: Globulin 3.1 g/dL Invalid Interpretation Code 2.3-3.5 [facility] Work Phone: Protein 6.9 g/dL Invalid Interpretation Code 6.4-8.2 [facility] Work Phone: Lab Report: T4 Total, Thyrox inon 04-28-2015 Thyroxine (T4) 9.6 ug/dL Invalid Interpretation Code 4.8-13.9 [facility] Work Phone: Lab Report: Thyroid Stim Hor star (TSH)on 04-28-2015 Thyroid stimulating hormone (TSH) 2.03 u[iU]/mL Invalid Interpretation Code 0.358-3.74 [facility] Work Phone: Office Visiton 03-31-2015 Smoking cessation education (procedure) yes Invalid Interpretation Code [facility] Work Phone: External Other: Preferred Me thod of Contacton 12-02-2014 Patient's prefered method of contact secmsg Invalid Interpretation Code [facility] Work Phone: Office Visiton 12-01-2014 cardiac risk group C Invalid Interpretation Code [facility] Work Phone: General cardiovascular disease 10Y risk [#] Irmo.D'Agostdianne N/A Invalid Interpretation Code [facility] Work Phone: Replaced Document: Yodit E CG Observationson 12-01-2014 electrocardiogram interpretation Sinus Rhythm Low voltage in precordial leads. -RSR(V1) -nondiagnostic. - Negative T-waves May be normal -consider acute process. ABNORMAL Invalid Interpretation Code [facility] Work Phone: GE use only - for LinkLogic import when terms are not otherwise specified 429 ms Invalid Interpretation Code [facility] Work Phone: P wave axis, electrocardiogram 51 deg Invalid Interpretation Code [facility] Work Phone: TN interval, electrocardiogram 136 ms Invalid Interpretation Code [facility] Work Phone: Pulse (Heart Rate) 72 /min Invalid Interpretation Code [facility] Work Phone: QRS axis, electrocardiogram 42 deg Invalid Interpretation Code [facility] Work Phone: QRS duration, electrocardiogram 86 ms Invalid Interpretation Code [facility] Work Phone: QT interval, electrocardiogram new path ms Invalid Interpretation Code [facility] Work Phone: T wave axis, electrocardiogram 90 deg Invalid Interpretation Code [facility] Work Phone: Clinical Lists Update: Prelo deckhand maintenance 11-18-2014 Hematocrit (HCT) 41.0 % Invalid Interpretation Code [facility] Work Phone: Hemoglobin (HGB) 13.9 g/dL Invalid Interpretation Code [facility] Work Phone: Platelets 215 10*3/mm3 Invalid Interpretation Code [facility] Work Phone: WBC (Leukocytes) 5.9 10*3/uL Invalid Interpretation Code [facility] Work Phone: Vital Signs Date Time Vital Sign Value Performing Clinician Faci lity 06-10-2024 14:29-0400 Body height 175.3 cm [facility] Cardiovascular Oxygen Plant Operator [facility] 06-10-2024 14:29-0400 Body mass index (BMI) [Ratio] 24.75 kg/m2 [facility] Cardiovascular Oxygen Plant Operator [facility] 06-10-2024 14:29-0400 Body weight 76.[address] [facility] Cardiovascular Oxygen Plant Operator [facility] 06-10-2024 14:29-0400 Diastolic blood pressure 92 mm[Hg] [facility] Cardiovascular Oxygen Plant Operator [facility] 06-10-2024 14:29-0400 Heart rate 64 /min [facility] Cardiovascular Oxygen Plant Operator [facility] 06-10-2024 14:29-0400 Systolic blood pressure 134 mm[Hg] [facility] Cardiovascular Oxygen Plant Operator [facility] 11-02-2023 07:35-0400 Body temperature 97 [degF] Dr. Kaushal galloway Work Phone: [facility] 11-02-2023 07:35-0400 Diastolic blood pressure 77 mm[Hg] Dr. Kaushal Gastelum Work Phone: [facility] 11-02-2023 07:35-0400 Heart rate 66 /min Dr. Kaushal galloway Work Phone: [facility] 11-02-2023 07:35-0400 Respiratory rate 16 /min Dr. Kaushal galloway Work Phone: [facility] 11-02-2023 07:35-0400 SaO2% (BldA) [Mass fraction] 97 % Dr. Kaushal Gastelum Work Phone: [phone] [place] [address] 11-02-2023 07:35-0400 Systolic blood pressure 125 mm[Hg] Dr. Kaushal Gastelum Work Phone: 1([phone])[phone] [place] [address] 11-02-2023 06:12-0400 Body height 175.[address] Kaushal galloway Work Phone: [phone] [place] [address] 11-02-2023 06:12-0400 Body mass index (BMI) [Ratio] 23.3 kg/m2 Dr. Kaushal Gastelum Work Phone: 6(542)[phone] [place] [address] 11-02-2023 06:12-0400 Body weight 71.[address] Kaushal galloway Work Phone: 1(813)[phone] [place] [address] 10-13-2023 14:03-0500 Body mass index (BMI) [Ratio] 23.1 kg/m2 Dr. Kaushal Gastelum Work Phone: 7(013)[phone] [place] [address] 10-13-2023 14:03-0500 Body weight 71.[address] Kaushal galloway Work Phone: 7(002)310-246003 [place] [address] 10-10-2023 08:25-0500 Body weight 71.[address] Kaushal galloway Work Phone: 9(404)562-951103 [place] [address] 10-09-2023 11:04-0500 Body mass index (BMI) [Ratio] 23.2 kg/m2 Dr. Kaushal Gastelum Work Phone: 2(114)[phone] [place] [address] 09-26-2023 08:38-0500 Body height 175.[address] Kaushal galloway Work Phone: [phone](296)[phone] [place] [address] 09-26-2023 08:38-0500 Body mass index (BMI) [Ratio] 23.2 kg/m2 Dr. Kaushal Gastelum Work Phone: [phone](790)[phone] [place] [address] 09-26-2023 08:38-0500 Body weight 71.[address] Kuashal galloway Work Phone: [facility] 09-26-2023 08:38-0500 Diastolic blood pressure 84 mm[Hg] Dr. Kaushal Gastelum Work Phone: [facility] 09-26-2023 08:38-0500 Heart rate 69 /min Dr. Kaushal galloway Work Phone: [facility] 09-26-2023 08:38-0500 Respiratory rate 14 /min Dr. Kaushal galloway Work Phone: [facility] 09-26-2023 08:38-0500 Systolic blood pressure 151 mm[Hg] Dr. Kaushal Gastelum Work Phone: [facility] 06-22-2023 11:36-0500 Body height 177.8 cm Melinda Short HUB BORER-CURRICULUM DEVELOPMENT COORDINATOR Work Phone: [facility] 06-22-2023 11:36-0500 Body mass index (BMI) [Ratio] 23.17 kg/m2 [facility] Short HUB BORER-CURRICULUM DEVELOPMENT COORDINATOR Work Phone: [facility] 06-22-2023 11:36-0500 Body weight 73.26 kg [facility] Short HUB BORER-CURRICULUM DEVELOPMENT COORDINATOR Work Phone: [facility] 06-22-2023 11:36-0500 Diastolic blood pressure 80 mm[Hg] [facility] Short HUB BORER-CURRICULUM DEVELOPMENT COORDINATOR Work Phone: [facility] 06-22-2023 11:36-0500 Heart rate 67 /min [facility] Short HUB BORER-CURRICULUM DEVELOPMENT COORDINATOR Work Phone: [facility] 06-22-2023 11:36-0500 SaO2% (BldA) [Mass fraction] 99 % [facility] Short HUB BORER-CURRICULUM DEVELOPMENT COORDINATOR Work Phone: [facility] 06-22-2023 11:36-0500 Systolic blood pressure 150 mm[Hg] Melinda Short HUB BORER-CURRICULUM DEVELOPMENT COORDINATOR Work Phone: [facility] 06-05-2023 13:35-0400 Body mass index (BMI) [Ratio] 23.9 kg/m2 Dr. Kaushal Gastelum Work Phone: [facility] 06-05-2023 13:35-0400 Body weight 73.[address] Kaushal galloway Work Phone: [facility] 01-16-2023 20:44-0400 Diastolic blood pressure 89 mm[Hg] [facility] 01-16-2023 20:44-0400 Heart rate 87 /min [facility] 01-16-2023 20:44-0400 Respiratory rate 18 /min [facility] 01-16-2023 20:44-0400 SaO2% (BldA) [Mass fraction] 100 % [facility] 01-16-2023 20:44-0400 Systolic blood pressure 172 mm[Hg] [facility] 01-16-2023 19:09-0400 Body height 175.26 cm [facility] 01-16-2023 19:09-0400 Body mass index (BMI) [Ratio] 23.8 kg/m2 [facility] 01-16-2023 19:09-0400 Body temperature 97 [degF] [facility] 01-16-2023 19:09-0400 Body weight 73 kg [facility] 06-21-2022 14:38-0500 Body height 176.5 cm Simone Fritz DO Work Phone: [facility] 06-21-2022 14:38-0500 Body mass index (BMI) [Ratio] 23.65 kg/m2 Simone Fritz DO Work Phone: [facility] 06-21-2022 14:38-0500 Body weight 73.71 kg Simone Fritz DO Work Phone: [facility] 06-21-2022 14:38-0500 Diastolic blood pressure 72 mm[Hg] Simone Tong DO Work Phone: [facility] 06-21-2022 14:38-0500 Heart rate 65 /min Simone Fritz DO Work Phone: [facility] 06-21-2022 14:38-0500 Systolic blood pressure 122 mm[Hg] Simone Fritz DO Work Phone: [facility] 03-25-2022 14:51-0400 Body temperature 98.9 [degF] Dr. Kaushal galloway Work Phone: [facility] Work Phone: 03-25-2022 14:51-0400 Diastolic blood pressure 72 mm[Hg] Dr. Kaushal Gastelum Work Phone: [facility] Work Phone: 03-25-2022 14:51-0400 Heart rate 91 /min Dr. Kaushal galloway Work Phone: [facility] Work Phone: 03-25-2022 14:51-0400 Respiratory rate 15 /min Dr. Kaushal galloway Work Phone: [facility] Work Phone: 03-25-2022 14:51-0400 SaO2% (BldA) [Mass fraction] 97 % Dr. Kaushal Gastelum Work Phone: [facility] Work Phone: 03-25-2022 14:51-0400 Systolic blood pressure 154 mm[Hg] Dr. Kaushal Gastelum Work Phone: [facility] Work Phone: 05-09-2017 10:27-0400 BMI (Body Mass Index) 22.96 kg/m2 Cathryn Borja LPN [facility] Work Phone: 05-09-2017 10:27-0400 Body Temperature 97 [degF] Cathryn Borja LPN [facility] Work Phone: 05-09-2017 10:27-0400 BP Diastolic 84 mm[Hg] Cathryn Borja LPN [facility] Work Phone: 05-09-2017 10:27-0400 BP Systolic 122 mm[Hg] Cathryn Borja LPN [facility] Work Phone: 05-09-2017 10:27-0400 Height 177.8 cm Cathryn Borja LPN [facility] Work Phone: 05-09-2017 10:27-0400 Pulse (Heart Rate) 87 /min Cathryn Borja LPN [facility] Work Phone: 05-09-2017 10:27-0400 Respiratory Rate 16 /min Cathryn Borja LPN [facility] Work Phone: 05-09-2017 10:27-0400 Weight 72.58 kg Cathryn Borja LPN [facility] Work Phone: 04-13-2017 14:10-0400 BMI (Body Mass Index) 22.96 kg/m2 Kimjunior Shultz [facility] Work Phone: 04-13-2017 14:10-0400 BP Diastolic 62 mm[Hg] Kim Shultz [facility] Work Phone: 04-13-2017 14:10-0400 BP Systolic 126 mm[Hg] Ikm Shultz [facility] Work Phone: 04-13-2017 14:10-0400 Height 177.8 cm Kim Shultz [facility] Work Phone: 04-13-2017 14:10-0400 Pulse (Heart Rate) 68 /min Kim Shultz [facility] Work Phone: 04-13-2017 14:10-0400 Respiratory Rate 18 /min Kim Shultz [facility] Work Phone: 04-13-2017 14:10-0400 Weight 72.58 kg [facility] Work Phone: 02-17-2017 11:30-0400 BMI (Body Mass Index) 23.01 kg/m2 Amber Pineda LPN [facility] Work Phone: 02-17-2017 11:30-0400 Body Temperature 97.7 [degF] Amber Pineda LPN [facility] Work Phone: 02-17-2017 11:30-0400 BP Diastolic 70 mm[Hg] Amber Pineda LPN [facility] Work Phone: 02-17-2017 11:30-0400 BP Systolic 130 mm[Hg] Amber Pineda LPN [facility] Work Phone: 02-17-2017 11:30-0400 Height 177.8 cm Amber Pineda LPN [facility] Work Phone: 02-17-2017 11:30-0400 Pulse (Heart Rate) 70 /min Amebr Pineda LPN [facility] Work Phone: 02-17-2017 11:30-0400 Weight 72.76 kg Amber Pineda LPN [facility] Work Phone: 10-03-2016 12:46-0500 BSA (Body Surface Area) 1.89 m2 Amber Pineda LPN [facility] Work Phone: 10-03-2016 12:46-0500 Respiratory Rate 18 /min Amber Pineda LPN [facility] Work Phone: 08-19-2016 13:36-0500 Height 177.8 cm Amber Pineda LPN [facility] Work Phone: 08-19-2016 13:36-0500 Weight 72.45 kg [facility] Work [facility]: Encounters Encounter Date Encounter Type Care Provider Facility Start: 06-24-2024 End: 06-24-2024 ambulatory [facility] Facility:[facility] Start: 06-13-2024 End: 06-13-2024 [facility] Facility:[facility] Start: 06-10-2024 End: 06-10-2024 Office outpatient visit 25 minutes Sasha Sohail Willard APRN-CURRICULUM DEVELOPMENT COORDINATOR Work Phone: [facility] [place] Comment on above: Right bundle branch block (Primary Dx); Coronary artery disease involving [place] coronary artery of [place] heart without angina pectoris; Essential hypertension, benign; Mixed hyperlipidemia Start: 06-10-2024 ambulatory ARSENIO GASTELUM Fa cility:[facility] Start: 05-14-2024 ambulatory Arsenio Fournier lity:[facility] Start: 05-14-2024 End: 05-14-2024 ambulatory Arsenio Gastelum Facility:[facility] Start: 05-01-2024 End: 05-01-2024 ambulatory Arsenio Gastelum Facility:[facility] Start: 11-09-2023 End: 11-09-2023 ambulatory Best ALARCON Facility:[facility] Start: 11-02-2023 ambulatory Ramin Dunlap Facility :[facility] Start: 11-02-2023 Non-patient / Non-visit Dr. Abraham Gastelum Work Phone: [facility] Start: 11-02-2023 End: 11-02-2023 Admission to same day surgery center Dr. Kaushal Gastelum Work Phone: [facility]Endoscopy Work Phone: Start: 11-02-2023 End: 11-02-[address] Kaushal Gastelum Work Phone: [facility] Work Phone: Start: 10-13-2023 Non-patient / Non-visit Dr. Abraham Gastelum Work Phone: [facility] Work Phone: Start: 10-13-2023 ambulatory Arsenio Fournier lity:[facility] Start: 10-10-2023 End: 10-10-2023 Admission to same day surgery center Dr. Kaushal Gastelum Work Phone: [facility]-Inventory Control Supervisor/Special Procedures Work Phone: Start: 10-10-2023 End: 10-10-2023 ambulatory Arsenio Gastelum Facility:[facility] Start: 10-04-2023 Encounter for preprocedural cardiovascular examination Deborah Noland [facility] Start: 09-27-2023 ambulatory Arsenio Weineri lity:[facility] Start: 09-27-2023 Non-patient / Non-visit [facility] Start: 09-26-2023 End: 09-26-[address] Kaushal Gastelum Work Phone: [facility] Work Phone: Start: 09-26-2023 End: 09-26-2023 ambulatory Arsenio Gastelum Facility:[facility] Start: 09-26-2023 End: 09-26-[address] Kaushal Gastelum Work Phone: [facility] Work Phone: Start: 09-26-2023 End: 09-26-[address] Kaushal Gastelum Work Phone: [facility]-Cardiovascul ct Services Work Phone: Start: 09-26-2023 End: 09-26-2023 ambulatory Arsenio Gastelum Facility:[facility] Start: 09-26-2023 Non-patient / Non-visit Dr. Abraham Gastelum Work Phone: [facility] Start: 08-30-2023 ambulatory Arsenio Fournier lity:[facility] Start: 08-29-[address] Abraham Gastelum Work Phone: [facility] Start: 06-22-2023 End: 06-22-2023 Office outpatient visit 15 minutes Melinda ROGERS Work Phone: [facility] [place] Comment on above: Coronary artery dise ase involving little shell tribe coronary artery of little shell tribe heart without angina pectoris (Primary Dx); Essential hypertension; Mixed hyperlipidemia Start: 06-22-2023 ambulatory [facility] Facility:[facility] Start: 06-07-2023 End: 06-07-[address] Kaushal Gastelum Work Phone: [facility]-Cat Scan, [facility] Work Phone: Start: 06-05-2023 Non-patient / Non-visit Dr. Abraham Gastelum Work Phone: [facility] Work Phone: Start: 03-22-2023 End: 03-22-2023 ambulatory [facility] Work Phone: Start: 03-22-2023 End: 03-22-2023 Discharged Recurring [facility]-Laboratory Work Phone: Start: 01-16-2023 End: 01-16-2023 Emergency department patient visit [facility]-Emergency Department Start: 06-21-2022 End: 06-21-2022 Office outpatient new 60 minutes Simone Edward Lam NICHOLE Work Phone: [facility] [place] Comment on above: Coronary artery dise ase involving little shell tribe coronary artery of little shell tribe heart without angina pectoris (Primary Dx); Essential hypertension, benign; Mixed hyperlipidemia Start: 04-13-2022 End: 04-13-[address] Kaushal Gastelum Work Phone: [facility] Work Phone: Start: 04-13-2022 End: 04-13-[address] Kaushal Gastelum Work Phone: [facility]-Outpatient Breast Imaging Start: 03-25-2022 End: 03-25-[address] Kaushal Gastelum Work Phone: [facility] Procedures Date Procedure Procedure Detail Performing Clinician Start: 11-02-[address] Kaushal galloway Work Phone: Start: 10-03-2023 Plain chest X-ray Dr. Kaushal galloway Work Phone: Start: 09-26-2023 Radionuclide imaging of perfusion of myocardium under exercise stress Dr. Kaushal Gastelum Work Phone: Start: 06-07-2023 CT of abdomen and pelvis without contrast Dr. Kaushal Gastelum Work Phone: Start: 01-16-2023 CT of head without contrast Start: 04-13-[address] Kaushal dao Work Phone: Start: 04-13-2017 End: 04-18-2017 *Hepatic [...] MD Work Phone: Start: 10-06-2015 End: 10-06-2015 МАРИЯ Oconnell MD Work Phone: Start: 10-06-2015 End: [...] Rehab Jimy Oconnell MD Work Phone: Start: 11-12-2014 History of placement of stent for coronary artery disease History of coronary artery stent placement Dr. Kaushal Gastelum Work Phone: Plan of Treatment Date Care Activity Detail Author Start: 05-07-2028 Tetanus vaccination TETANUS [facility] Start: 05-23-2025 End: 05-23-2025 Patient encounter procedure 05/23/2025 2:00 PM EDT Office Visit [facility] [address] [place] [address] [facility] [place] Start: 05-29-2024 End: 05-29-2024 Patient encounter procedure 05/29/2024 2:00 PM EDT Office Visit [facility] [place] [address] [place] [id number] Melinda Dorado APRN-CNP [address] [address] [facility] [place] Start: 04-14-2024 COVID-19 VACCINE () COVID-19 VACCINE () [facility] Start: 11-02-2023 Patient discharge [facility] Start: 10-10-2023 Patient discharge [facility] Start: 06-27-2023 End: 06-27-2023 Patient encounter procedure 06/27/2023 Office Visit Cardiovascular Medicine Simone Fritz DO [address] [address] [facility] [place] Start: 10-30-2017 End: 10-30-2017 Appointment Appointment [facility] Work Phone: Start: 10-16-2017 End: 04-21-2017 *Hepatic Function Panel *Hepatic Function Panel [facility] Work Phone: Start: 10-16-2017 End: 04-21-2017 Lipid panel [AGGREGATE] *Lipid Profile CC PCP [facility] Work Phone: Start: 2017 RSV VACCINE (1 - 1-d ose 60+ series) RSV VACCINE (1 - 1-dose 60+ series) [facility] Start: 04-13-2017 End: 04-13-2017 Appointment Appointment [facility] Work Phone: Start: 04-13-2017 End: 04-18-2017 *Hepatic Function Panel *Hepatic Function Panel [facility] Work Phone: Start: 04-13-2017 End: 04-13-2017 МАРИЯ HSIEH [facility] Work Phone: Start: 04-13-2017 End: 04-13-2017 Follow Up Appt 6 months Follow Up Appt 6 months [facility] Work Phone: Start: 04-13-2017 End: 04-18-2017 Lipid panel [AGGREGATE] *Lipid Profile CC PCP [facility] Work Phone: Start: 04-06-2017 End: 04-06-2017 Appointment Appointment [facility] Work Phone: Start: 02-17-2017 End: 02-17-2017 Appointment Appointment [facility] Work Phone: Start: 10-23-2016 End: 06-09-2016 *Hepatic Function Panel *Hepatic Function Panel [facility] Work Phone: Start: 10-23-2016 End: 06-09-2016 Lipid panel [AGGREGATE] *Lipid Profile CC PCP [facility] Work Phone: Start: 10-03-2016 End: 10-03-2016 МАРИЯ HSIEH [facility] Work Phone: Start: 10-03-2016 End: 10-03-2016 Follow Up Appt 6 months Follow Up Appt 6 months [facility] Work Phone: Start: 06-08-2016 End: 06-08-2016 *BMP *BMP [facility] Work Phone: Start: 06-08-2016 End: 06-08-2016 Follow Up BP Check Follow Up BP Check [facility] Work Phone: Start: 05-06-2016 End: 05-06-2016 МАРИЯ JEAN-BAPTISTEN [facility] Work Phone: Start: 05-06-2016 End: 05-06-2016 Follow Up Appt 6 months Follow Up Appt 6 months [facility] Work Phone: Start: 05-06-2016 End: 05-06-2016 Follow Up BP Check Follow Up BP Check [facility] Work Phone: Start: 04-25-2016 End: 06-09-2016 *Hepatic Function Panel *Hepatic Function Panel [facility] Work Phone: Start: 04-25-2016 End: 06-09-2016 Lipid panel [AGGREGATE] *Lipid Profile CC PCP [facility] Work Phone: Start: 10-06-2015 End: 10-23-2015 *Hepatic Function Panel *Hepatic Function Panel [facility] Work Phone: Start: 10-06-2015 End: 10-06-2015 МАРИЯ HSIEH [facility] Work Phone: Start: 10-06-2015 End: 10-06-2015 Follow Up Appt 1 year Follow Up Appt 1 year [facility] Work Phone: Start: 10-06-2015 End: 10-23-2015 Lipid panel [AGGREGATE] *Lipid Profile CC PCP [facility] Work Phone: Start: 06-12-2015 End: 10-06-2015 *Hepatic Function Panel *Hepatic Function Panel [facility] Work Phone: Start: 06-12-2015 End: 10-06-2015 Lipid panel [AGGREGATE] *Lipid Profile CC PCP [facility] Work Phone: Start: 03-31-2015 End: 03-31-2015 МАРИЯ HSIEH [facility] Work Phone: Start: 03-31-2015 End: 03-31-2015 Echocardiography Echocardiogram (complete) [facility] Work Phone: Start: 03-31-2015 End: 03-31-2015 Follow Up Appt 6 months Follow Up Appt 6 months [facility] Work Phone: Start: 03-31-2015 End: 04-28-2015 Thyroid stimulating hormone (TSH) *TSH [facility] Work Phone: Start: 03-31-2015 End: 04-28-2015 Thyroxine (T4) *T4 (Total) [facility] Work Phone: Start: 12-15-2014 End: 12-11-2014 *Hepatic Function Panel *Hepatic Function Panel [facility] Work Phone: Start: 12-15-2014 End: 12-02-2014 Lipid panel [AGGREGATE] *Lipid Profile CC PCP [facility] Work Phone: Start: 12-01-2014 End: 12-01-2014 Cardiac Rehab Cardiac Rehab [facility] Work Phone: Start: 12-01-2014 End: 12-01-2014 DJN DJN [facility] Work Phone: Start: 12-01-2014 End: 12-01-2014 Echocardiography Echocardiogram (complete) [facility] Work Phone: Start: 12-01-2014 End: 12-01-2014 Electrocardiogram, complete EKG (In office) [facility] Work Phone: Start: 12-01-2014 End: 12-01-2014 Follow Up Appt 4 months Follow Up Appt 4 months [facility] Work Phone: Start: 11-25-2014 End: 12-01-2014 Cardiac Rehab Cardiac Rehab [facility] Work Phone: Start: 2002 Screening for malign ant neoplasm of colon COLORECTAL CANCER SCREENING DISCUSSION [facility] Start: 1997 Lipid panel LIPID SCREENING [facility] Start: 1997 Screening for malign ant neoplasm of breast MAMMOGRAM SCREENING DISCUSSION [facility] Start: 1978 Screening for malign ant neoplasm of cervix CERVICAL CANCER SCREENING DISCUSSION [facility] Start: 1972 HIV screening HIV SCREENING DISCUSSION [facility] Start: 04-07-1958 COVID-19 VACCINE (#1) COVID-19 VACCI NE (#1) [facility] Start: 1957 Hepatitis C screening HEPATITI S C VIRUS SCREENING [facility] Start: 1957 Potassium [Moles/vol ume] in Serum or Plasma POTASSIUM [facility] Start: 1957 Screening for osteoporosis DEXA SCAN DISCUSSION [facility] Ambulatory ECG TN ECG (OFFICE R EAD ONLY) TN - OFFICE PERFORMED Routine Coronary artery disease involving little shell tribe coronary artery of little shell tribe heart without angina pectoris Essential hypertension, benign Mixed hyperlipidemia Ordered: 06/21/2022 [facility] Comment on above: Ordered: 06/21/2022 Blood chemistry [facility] Catheterization of l eft heart [facility] CBC W Auto Different ial panel - Blood [facility] Colonoscopy [facility] Partial thromboplast in time, activated [facility] Patient Education [facility] Work Phone: Patient referral [facility] Work Phone: Prothrombin time [facility] XR Chest PA and Lateral [facility] Immunizations Immunization Date Immunization Notes Care Provider Fa cility 05-13-2022 influenza, injectabl e, quadrivalent, preservative free Dr. Kaushal Gastelum Work Phone: [facility] 05-13-2022 influenza, seasonal, injectable [facility] 05-19-2021 influenza, injectabl e, quadrivalent, preservative free Dr. Kaushal Gastelum Work Phone: [facility] 05-19-2021 influenza, seasonal, injectable Dr. Kaushal Gastelum Work Phone: [facility] 05-12-2020 influenza, injectabl e, quadrivalent, preservative free Dr. Kaushal Gastelum Work Phone: [facility] 05-12-2020 influenza, seasonal, injectable Dr. Kaushal Gastelum Work Phone: [facility] 05-09-2019 influenza, injectabl e, quadrivalent, preservative free Dr. Kaushal Gastelum Work Phone: [facility] 05-09-2019 influenza, seasonal, injectable Dr. Kaushal Gastelum Work Phone: [facility] 05-11-2018 influenza, injectabl e, quadrivalent, preservative free Dr. Kaushal Gastelum Work Phone: [facility] 05-11-2018 influenza, seasonal, injectable Dr. Kaushal Gastelum Work Phone: [facility] 05-19-2017 influenza, injectabl e, quadrivalent, preservative free Dr. Kaushal Gastelum Work Phone: [facility] 05-19-2017 influenza, seasonal, injectable Dr. Kaushal Gastelum Work Phone: [facility] 05-13-2016 influenza, injectabl e, quadrivalent, preservative free Dr. Kaushal Gastelum Work Phone: [facility] 05-13-2016 influenza, seasonal, injectable Dr. Kaushal Gastelum Work Phone: [facility] 05-13-2015 influenza, injectabl e, quadrivalent, preservative free Dr. Kaushal Gastelum Work Phone: [facility] 05-13-2015 influenza, seasonal, injectable Dr. Kaushal Gastelum Work Phone: [facility] 05-14-2014 influenza, injectabl e, quadrivalent, preservative free Dr. Kaushal Gastelum Work Phone: [facility] 05-14-2014 influenza, seasonal, injectable Dr. Kaushal Gastelum Work Phone: [facility] 06-13-[address] Kaushal Gastelum Work Phone: [facility] Payers Date Payer Category Payer Self-pay [id number] 2023 Private Health Insurance [id number] 2023 Unknown [id number] 2019 Unknown [facility] [id number] 2019-Present [address] [address] [place] [address] [id number] 2013 Unknown [id number] 1955 Unknown [id number] 94 1957 Unknown [id number] 94 Unknown [id number] 62 Unknown [id number] 62 Unknown [id number] 62 Unknown [id number] [id number] 62 Unknown [id number] [id number] 62 Unknown [id number] [id number] 62 Unknown [id number] [id number] 62 Unknown [id number] [id number] 62 Unknown [id number] [id number] 62 Unknown [id number] [id number] 62 Unknown [id number] [id number] 62 Unknown [id number] [id number] 62 Unknown [id number] 2.16.840.1.504738.3.579.2.4 62 Unknown [id number] [id number] 62 Unknown [id number] [id number] 62 Unknown [id number] 62 Social History Date Type Detail Facility Start: 03-25-2022 End: 11-01-2023 Tobacco smoking status NHIS Unknown if ever smoked [facility] Start: 1955 Sex Assigned At Female [facility] Start: 06-21-2022 Tobacco smoking status NHIS Never smoked tobacco [facility] Start: 06-21-2022 Tobacco use and exposure Smokeless tobacco non-user [facility] Start: 06-21-2022 End: 06-10-2024 Alcohol intake Current drinker of alcohol (finding) [facility] Start: 06-21-2022 Alcohol Comment 1 [facility] Start: 1955 Sex Assigned At Not on file [facility] Start: 06-22-2023 End: 06-10-2024 History of Social function [facility] Start: 06-22-2023 End: 06-10-2024 Tobacco use panel [facility] NEGATED: Highlighted row [facility] Medical Equipment Procedure Code Equipment Code Equipment Origin al Text Equipment Identifier Dates Promus Premier Coronary stent FDA Start: 11-18-2014 Promus Premier Coronary stent FDA Start: 11-18-2014 Promus Premier Coronary stent FDA Start: 11-18-2014 Promus Premier Coronary stent FDA Start: 11-18-2014 Promus Premier Coronary stent FDA Start: 11-18-2014 Goals Date Patient Goal Desired Activity /State Mental Status Date Assessment Result Facility 11-02-2023 Cognitive function Level Of Cons ciousness Awake;Alert;Appropriate [facility] Work Phone: 11-02-2023 Cognitive function Voice/Name [facility] Work Phone: 01-16-2023 Cognitive function Level Of Cons ciousness Awake;Alert;Appropriate;Follow s Commands [facility] Work Phone: Clinical Notes 11-08-2022 to 06-10-2024 Sasha Willard, [employer]ER-[employer]RICULUM DEVELOPMENT COORDINATOR - 06/10/2024 3:[address], [employer]RICULUM DEVELOPMENT COORDINATOR - 06/22/2023 12:00 PM EST Note Date & Type Note Facility 06-10-2024 History of Present illness Narrative Ms. Victor, is a 68 y.o. female who presented 06/10/2024 at the [facility] [place] for a follow up visit. She has a history of CAD/STEMI 11/2014 s/p MLAD PCI RENY, RBBB, HTN, HLD. Last visit at General Cardiology was 06/22/2023 with Melinda Dorado CNP, at which time she was feeling well without cardiac concerns. History of Present Illness At today's visit, the patient reports feeling well overall. She denies chest pain, shortness of breath, lightheadedness, palpitations, syncope or swelling. 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 Her blood pressure readings have been elevated recently, around 135/80. Prior to her colonoscopy at [facility] in spring 2023, her anesthesia team [...] lb 9.6 oz) Height: 1.753 m (5' 9) Wt Readings from Last 3 Encounters: 06/10/24 [...] function, impaired relaxation, no significant valve disease [facility] 11/2014 s/p PCI RENY x1 mLAD, moderate disease distally w/o intervention ECG 06/21/2022 NSR at 65 bpm w RBBB ASSESSMENT/PLAN: Assessment & Plan Coronary artery disease - [facility] 11/2014 s/p PCI RENY x1 mLAD, moderate disease distally w/o intervention - [facility] at outside hospital 09/2023 reportedly stable, records requested - Appears [...] should need arise. documented in this encounter [facility] 11-02-2023 Procedure note [facility] 11-02-2023 Procedure note [facility] 11-02-2023 Note [facility] Medical Records Department [address] [place] [address] History Physical Exam 11/02/23 0656 MR#: [id number] Acct: [id number] Name: MARY VICTOR I Rep #: [id number] : 1955 68 From: Ramin Friend PCP: Dr. Kaushal Gastelum MD Status:[facility] Location: [place] [address] HPI - General General Date of Admission: 11/02/23 Date of Service: 11/02/23 Chief Complaint: Screening colonoscopy HPI Narrative MARY VICTOR, is a 68 F who presents today for screening colonoscopy. She does not have any abdominal pain. Does not have any cramping. She does not have any chest pain or shortness of breath. Overall she is in very good health. She did have a colonoscopy approximately 10 years ago and had 1 benign polyp removed. She does have a past medical history of hypertension, hypercholesterolemia which are controlled with medicines. [facility] Medical History Allergies Arthritis Atherosclerosis of little shell tribe coronary artery of little shell tribe heart without angina pectoris Bilateral headaches Cardiology follow-up encounter Essential (primary) hypertension Former smoker History of echocardiogram History of stress test Hx of colonic polyp Mixed hyperlipidemia Non-rheumatic tricuspid valve insufficiency Old myocardial infarction ( 11/18/14) Wears glasses Home Medications aspirin 81 mg tablet,delayed release (Adult Low Dose Aspirin) 81 mg PO DAILY 12/09/20 [History Last Taken 10/30/23] atorvastatin 80 mg tablet 80 mg PO QHS #90 tabs 10/25/21 [Rx Last Taken 11/01/23] hydrochlorothiazide 25 mg tablet 25 mg PO DAILY #90 tabs 04/19/22 [Rx Last Taken 11/01/23] metoprolol tartrate 25 mg tablet 25 mg PO BID 06/05/23 [History Last Taken 11/02/23 04:30] jqwcizmggzhg-Vl-lixl-minerals 18 mg-0.4 mg tablet 1 tab PO DAILY 06/05/23 [History Last Taken Unknown] tizanidine 4 mg capsule 4 mg PO QHS PRN muscle spasticity 06/05/23 [History Last Taken Unknown] vitamin D3 125 mcg (5,000 unit)-vitamin K2 90 mcg capsule 1 cap PO DAILY 06/05/23 [History Last Taken Unknown] losartan 25 mg tablet 50 mg PO DAILY 09/26/23 [History Last Taken 11/02/23 04:30] Allergy/AdvReac Type Severity Reaction Status Date / Time codeine Allergy Itching Verified 11/02/23 06:10 lisinopril AdvReac Intermediate cough Verified 11/02/23 06:10 Family History Other Cancer Hypertension Surgical History H/O hernia repair H/O total hysterectomy History of coronary artery stent placement ( 11/18/14) Hx of cardiac catheterization Hx of colonoscopy Social History current occupational status: employed current occupation: [employer] Smoking Status: Former smoker alcohol intake: current alcohol intake frequency: a few times a month Alcohol type: wine substance use type: does not use what type of physical activity do you participate in: walking frequency: 3-4 times per week ROS Review of Systems ROS Unobtainable: other Constitutional Constitutional: Denies fatigue, fever(s), poor appetite, weight gain or weight loss ENT HEENT: Denies mouth lesions Cardiovascular Cardiovascular: Denies abdominal bloating, abdominal edema or abdominal pain Respiratory/Chest Respiratory/Chest: Denies change in mental status, change in phlegm color, chest congestion or chest tightness Gastrointestinal Gastrointestinal: Denies belching, bloating, change in bowel habits, change in stool character, chewing difficulty, coffee ground emesis, constipation, cramping, diarrhea, dyspepsia, dysphagia, early satiety, excessive flatus, fecal incontinence, heartburn, hematemesis, hematochezia, hemorrhoids, loose stools, melena, nausea, odynophagia, rectal bleeding, tenesmus, vomiting or weight changes Genitourinary Genitourinary: Denies abdominal discomfort, burning urination or itching Musculoskeletal Musculoskeletal: Reports as per HPI; Denies muscle weakness or myalgias Integumentary Integumentary: Denies jaundice Neurologic Neurologic: Denies lack of coordination or weakness Psychiatric Psychiatric: Denies confusion, depression, memory loss, mood swings, paranoia or suicidal ideation Endocrine Endocrinology: Denies systems reviewed and no addt'l complaints, except as documented Hematologic/Lymphatic Hematologic/Lymphatic: Denies anemia, easy bleeding, easy bruising or lymphadenopathy Allergic/Immunologic Allergic/Immunologic: Denies systems reviewed and no addt'l complaints, except as documented Vital Signs Vital Signs Vital Signs: 11/02/23 06:12 11/02/23 06:12 Temperature 98.3 F Temperature Source Temporal Pulse Rate 60 Respiratory Rate 18 Respiratory Pattern Normal Blood Pressure 156/87 H Blood Pressu (more content not included)... [facility] 06-22-2023 History of Present illness Narrative , is a 67 y.o. female who presented 06/22/2023 at the [facility] [place]. Mary has a medical history of CAD/STEMI [...] lb 8 oz) Height: 1.778 m (5' 10) Wt Readings from Last 3 Encounters: 06/22/23 [...] no evidence of ischemia, METS 10.1 TTE 2018 normal biV function, impaired relaxation, no significant valve disease [facility] 11/2014 s/p PCI RENY x1 mLAD, moderate disease distally w/o intervention ASSESSMENT/PLAN: * CAD - S/p STEMI PCI 2014 - 2019 no evidence of ischemia, METS 10.1 - TTE 2018 normal biV function, impaired relaxation, no significant valve disease - [facility] 11/2014 s/p PCI RENY x1 mLAD, moderate [...] in one year documented in this encounter [facility] 01-16-2023 Discharge summary Note Date/Time January 16, 2023 7:47p [facility] Medical Records Department [address] [place] [address] Emergency Department Summary 01/16/23 MR#: [id number] Acct: [id number] Name: MARY VICTOR Junior Rep #:[id number] : 1955 67 From: Jasper Hurst MD PCP: Dr. Kaushal Gastelum MD Status: REG ER Location: ED HPI History of Present Illness Chief Complaint: Hypertension Narrative Narrative: Patient presents with elevated blood pressure and a couple episodes of transientvertigo. Patient states that when she rolled over in bed this morning she got vertigo. She went back to sleep. She was able to get up and do normal things. When she tilted her head far to the left she got vertigo for a moment again but then wentaway. As long as she does not make a quick move or bending to the side she feels fine. No numbness tingling weakness or discoordination though. No headache. She does check her blood pressure frequently and noticed that today her blood pressure is elevated. Normally it is in the low 100s. She was switched from metoprolol 25 twice a day to losartan back in June. She is also on hydrochlorothiazide. She does admit that she ate differently over the weekend and had some very salty burritos that may have contributed to this. Fidel has some allergy symptoms. But she has no chest pain trouble breathing. She has had a heart attack in 2014 but no symptoms related to that at all. [facility] Medical History (Updated 01/16/23 @ 20:[address] Jasper Hurst MD) Allergies Arthritis Atherosclerosis of little shell tribe coronary artery of little shell tribe heart without angina pectoris Bilateral headaches Essential (primary) hypertension Mixed hyperlipidemia Non-rheumatic tricuspid valve insufficiency Old myocardial infarction (~11/18/14) Home Medications aspirin 81 mg tablet,delayed release (Adult Low Dose Aspirin) 81 mg PO Q OTHER DAY 12/09/20 [History Last Taken Unknown] atorvastatin 80 mg tablet 80 mg PO QHS #90 tabs 10/25/21 [Rx Last Taken Unknown] hydrochlorothiazide 25 mg tablet 25 mg PO DAILY #90 tabs 04/19/22 [Rx Last Taken Unknown] losartan 25 mg tablet 50 mg PO DAILY 01/16/23 [History Last Taken Unknown] Allergy/AdvReac Type Severity Reaction Status Date / Time codeine Allergy Itching Verified 01/16/23 19:09 lisinopril AdvReac Intermediate cough Verified 01/16/23 19:09 Family History Other Cancer Hypertension Surgical History H/O total hysterectomy History of coronary artery stent placement (~11/18/14) Social History Smoking Status: Former smoker alcohol intake: current alcohol intake frequency: a few times a month Alcohol type: wine substance use type: does not use what type of physical activity do you participate in: walking frequency: 3-4 times per week ROS ROS ED ROS Narrative A complete review of systems was performed and is negative except as documented in the history of present illness. Some specific details below. Constitutional: No recent fevers or chills. No malaise. EYE: No discharge, visual complaints, or pain. ENT: No difficulty swallowing. No swelling. No pain. No reflux symptoms. Mild nasal congestion and runny nose. She occasionally feels as though her ears mightbe plugged slightly. But no pain. CV: No chest pain pressure tightness or palpitations. Respiratory: No cough or trouble breathing. GI: No abdominal pain. No nausea vomiting diarrhea. No blood in stool. : No frequency dysuria or hematuria. Musculoskeletal: No recent trauma. No pains. No swelling. Skin: No rash. Nondiaphoretic. Neuro: No weakness or numbness. Please see history of present illness. Endocrine: No polyuria or polydipsia. EXAM Physical Exam Narrative Exam Narrative: CONSTITUTIONAL: Patient is nontoxic in appearance. The patient looks comfortable. Work of breathing looks normal. HEENT: No notable trauma. Mucous membranes moist. No sinus tenderness. No indication of pain with swallowing. EYES: No conjunctival injection. No proptosis. NECK:No JVD. No stridor. No bruits are heard. CARDIOVASCULAR: Regular rate. Regular rhythm. No notable murmur. No JVD. Heart rate on the monitor is about 90 and appears to be normal sinus rhythm. RESPIRATORY: No respiratory distress. Breathing is unlabored. No wheezes. No rhonchi. No rales. No pain with a deep breath. No chest wall tenderness. GASTROINTESTINAL: Not distended. Bowel sounds are normal. No tenderness. No guarding. No rebound. No palpable mass. No bruit is heard. GENITOURINARY: No tenderness over the bladder. No CVA tenderness. MUSCULOSKELETAL: Atraumatic. No peripheral edema. No cord. No tenderness along the deep venous system. No asymmetry. No distended veins. NEUROLOGICAL: Patient is alert and appropriate. No focal deficit noted. No discoordination. No sensory loss. Speech is normal. She has no symptoms of any neurologic deficit or vertigo at this time either. SKIN: No noted rashes. No diaphoresis. PSYCHIATRIC: Patient is calm. Mood is appropriate. Const Vital Signs: 01/16/23 19:09 01/16/23 19:19 01/16/23 20:35 Temperature 97 F L Temperature Source Temporal Pulse Rate 105 H 72 Respiratory Rate 18 18 Respiratory Effort Normal Non-Labored Respiratory Pattern Normal Blood Pressure 213/100 H 163/88 H Blood Pressure Mean 137 113 Pulse Ox 100 98 Oxygen Delivery Method Room Air Room Air MDM MDM MDM Narrative Medical decision making narrative: My independent interpretation the patient's CT scan of the head without contrastshows no acute process. Final reading was negative head/brain CT without IV contrast. Patient CBC is normal. Patient's electrolytes are normal other than minimally low potassium at 3.1. This should self correct with diet. Patient's blood pressure is down to 168/88 at this time without therapy. She now recalls that she took her medicines with a glass of wine after dinner last night. Normally she takes them separately later in the evening. This certainlycould have caused some variation in absorption. It is also possible that the salty burrito contributed to her transient elevation of blood pressure. Her vertigo is only there if she turns certain directions. I do not think this requires any further evaluation or treatment. She has an appointment with her physician tomorrow at about 11:45 in the morning which she will keep. I think she is appropriate for discharge. I do not think we need to change her medications at this time. Lab Data Attestation: I reviewed the patient's lab results. Labs: Laboratory Results - last 24 hr 01/16/23 01/16/23 19:50 19:50 WBC 5.9 RBC 4.23 Hgb 13.0 Hct 39.6 MCV 93.6 MCH 30.7 MCHC 32.8 RDW Std Deviation 42.7 RDW Coeff of Chapo 12.4 Plt Count 194 MPV 10.2 Immature Gran % (Auto) 0.200 Neut % (Auto) 66.4 Lymph % (Auto) 23.6 Marquette % (Auto) 7.5 Eos % (Auto) 1.4 Baso % (Auto) 0.9 Absolute Neuts (auto) 3.9 Absolute Lymphs (auto) 1.38 Nucleated RBC % 0 Sodium 142 Potassium 3.1 L Chloride 107 Carbon Dioxide 29.0 Anion Gap 6 BUN 9 Creatinine 0.76 Estim Creat Clear Calc 77.12 Est GFR (MDRD) Af Amer 99 Est GFR (MDRD) Non-Af 82 BUN/Creatinine Ratio 11.9 Glucose 99 Calcium 9.4 Radiography Diagnostic Testing: Clinical Impression(s) from Imaging Studies Brain CT 01/16/23 19:41 IMPRESSION: Negative head/brain CT without intravenous contrast. Electronically Signed: Sammy Barragan MD at 20:15 EDT , EKG Initial EKG: Comments: My independent interpretation the patient's EKG shows normal sinus rhythm with a right bundle branch block which is not new. Overall rate is88. Diffuse nonspecific ST and T wave changes likely related to the bundle branch block. TN interval is normal. QRS duration is slightly long at 122 ms. QTc is slightly long at 486 ms. However, these EKG findings are similar to 13 November 2020. Discharge Plan Triage Chief Complaint: Hypertension ED Provider: Jasper Hurst Dx/Rx/DC Orders Clinical Impression: Elevated blood pressure reading, Intermittent vertigo Instructions: ED High Blood Pressure Hypertension Prescriptions: No Action aspirin [Adult Low Dose Aspirin] 81 mg tablet,delayed release (DR/EC) 81 mg PO Q OTHER DAY Rx Instructions: Alternates plavix and aspirin losartan 25 mg tablet 50 mg PO DAILY atorvastatin 80 mg tablet 80 mg PO QHS Qty: 90 3RF hydrochlorothiazide 25 mg tablet 25 mg PO DAILY Qty: 90 3RF Primary Care Provider: Kaushal Gastelum Referrals: Kaushal Gastelum MD [Primary Care Provider] - 1 Day Disposition Disposition: Home, Self Care What to do if you have Problems For any increased pain, shortness of breath, bleeding, nausea or vomiting, chestpain, or any unexpected problems, contact your Primary Care Provider. Call [facility] ([phone]) or report to the closest Emergency Room. Call 911 if necessary. 01/16/232043 <Electronically signed by Jasper Hurst MD> Cosigner Signature (if applicable): CC: Dr. Kaushal Gastelum MD ~ Signed [facility] Work Phone: [phone]) 688-975211-08-2022 History of Present illness Narrative* Teresa Akers MA - 06/21/2022 2:30 PM EST 12 Lead EKG performed per provider's order, per policy, and given to Dr. Fritz for interpretation. * Simone Fritz DO - 06/21/2022 2:30 PM EST HISTORY It was my privilege to see Ms. Mary Victor at [facility] [place] on 06/21/2022 for her CAD. She is a 66 y.o. female hx CAD/STEMI 11/2014 s/p mLAD PCI RENY, HTN, HLP, presenting here to re-establish with cardiology. She denies any CP, SOB, orthopnea/PND, worsening LE edema, palpitations, syncope. 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 She reports [...] MEDICAL HISTORY Past Medical History: Diagnosis Date CA (myocardial infarction) Migraine PAST SOCIAL HISTORY Social [...] Sitting) Pulse 65 Ht 1.765 m (5' 9.5) Wt 73.7kg (162 lb 8 oz) BMI 23.65 kg/m [...] erythema: Skin: No jaundice or rash Neuro: grader tender grossly intact. Strength grossly equal in muscle groups of the bilateral UEs and LEs. Psych: appropriate affect and cognition LABS AND TEST RESULTS No results found for: CHOLESTEROL, TRIG, HDL, LDLCALC No results found for: ALT, GLUCOSE, HGBA1C, TSH No results found for: SODIUM, POTASSIUM, CHLORIDE, CO2, BUN, CREATSERUM, GLUCOSE Reviewed all testing and notes from 2014 to 10/2021 [facility] 11/2014 - s/p PCI RENY x 1 mLAD; moderate disease distally without intervention. TTE 2018 - normal biV function, impaired relaxation, no significant valve disease [facility] 2019 - no evidence of ischemia, 10.1 METs ASSESSMENT AND PLAN In summary, Ms. Mary Victor is a 66 y.o. female with hx CAD/STEMI 11/2014 s/p mLAD PCI RENY, HTN,HLP, presenting here to re-establish with cardiology. 1. CAD/STEMI - s/p PCI 2014. Recommend she restart ASA 81 mg daily. Will also consolidate some of her medications. Given no angina, OK to stop Lopressor. Reviewed 7 years worth of testing and notes that patient brought with her as described above. Reviewed [facility] film of her mLAD post-PCI that appearsonly mild- moderately stenosed distally. Would not recommend further ischemic [...] contact me. Respectfully yours, Simone Fritz DO, [facility] [employer] Counselor of Clinical Internal Medicine [facility] Diagnosis Onset Date Resolution Status Encounter for screening for COVID-19 acute Nasal congestion acute Sore throat acute [facility] Work Phone: Evaluation note* Diagnosis Coronary artery disease involving little shell tribe coronary artery of little shell tribe heart without angina pectoris- Primary Essential hypertension, benign Mixed hyperlipidemia [facility] assessment information available [facility] Work Phone: Evaluation note* Diagnosis Coronary artery disease involving little shell tribe coronary artery of little shell tribe heart without angina pectoris- Primary Essential hypertension Unspecified essential hypertension Mixed hyperlipidemia [facility] Diagnosis Onset Date Resolution Status [id number] chronic Essential (primary) hypertension chronic Mixed hyperlipidemia chronic [facility] Work Phone: Evaluation note* Diagnosis Onset Date Resolution Status [id number] chronic Essential (primary) hypertension chronic Mixed hyperlipidemia chronic Encounter for screening for malignant neoplasm of colo n acute [facility] Work Phone: Evaluation note* Diagnosis Right bundle branch block- Primary Coronary artery disease involving little shell tribe coronary artery of little shell tribe heart without angina pectoris Essential hypertension, benign Mixed hyperlipidemia [facility] this [facility] Author Ramin Dunlap [facility] November 02, 2023 6:58am Note Date/Time November 02, 2023 6:5 8am [facility] Medical Records Department [address] [place] [id number] History & Physical Exam 11/02/23 0656 MR#: [id number] Acct: [id number] Name: MARY VICTOR I Rep #:[id number] : 1955 68 From: Ramin Dunlap DO PCP: Dr. Kaushal Gastelum MD Status: [facility] Location: [place] [address] HPI - General General Date of Admission: 11/02/23 Date of Service: 11/02/23 Chief Complaint: Screening colonoscopy HPI Narrative MARY VICTOR, is a 68 F who presents today for screening colonoscopy. She doesnot have any abdominal pain. Does not have any cramping. She does not have anychest pain or shortness of breath. Overall she is in very good health. She didhave a colonoscopy approximately 10 years ago and had 1 benign polyp removed. She does have a past medical history of hypertension, hypercholesterolemia whichare controlled with medicines. [facility] Medical History Allergies Arthritis Atherosclerosis of little shell tribe coronary artery of little shell tribe heart without angina pectoris Bilateral headaches Cardiology follow-up encounter Essential (primary) hypertension Former smoker History of echocardiogram History of stress test Hx of colonic polyp Mixed hyperlipidemia Non-rheumatic tricuspid valve insufficiency Old myocardial infarction (~11/18/14) Wears glasses Home Medications aspirin 81 mg tablet,delayed release (Adult Low Dose Aspirin) 81 mg PO DAILY 12/09/20 [History Last Taken 10/30/23] atorvastatin 80 mg tablet 80 mg PO QHS #90 tabs 10/25/21 [Rx Last Taken 11/01/23] hydrochlorothiazide 25 mg tablet 25 mg PO DAILY #90 tabs 04/19/22 [Rx Last Taken 11/01/23] metoprolol tartrate 25 mg tablet 25 mg PO BID 06/05/23 [History Last Taken 11/02/23 04:30] dieoimnzbzvg-El-wlrs-minerals 18 mg-0.4 mg tablet 1 tab PO DAILY 06/05/23 [History Last Taken Unknown] tizanidine 4 mg capsule 4 mg PO QHS PRN muscle spasticity 06/05/23 [History Last Taken Unknown] vitamin D3 125 mcg (5,000 unit)-vitamin K2 90 mcg capsule 1 cap PO DAILY 06/05/23 [History Last Taken Unknown] losartan 25 mg tablet 50 mg PO DAILY 09/26/23 [History Last Taken 11/02/23 04:30] Allergy/AdvReac Type Severity Reaction Status Date / Time codeine Allergy Itching Verified 11/02/23 06:10 lisinopril AdvReac Intermediate cough Verified 11/02/23 06:10 Family History Other Cancer Hypertension Surgical History H/O hernia repair H/O total hysterectomy History of coronary artery stent placement (~11/18/14) Hx of cardiac catheterization Hx of colonoscopy Social History current occupational status: employed current occupation: [employer] Smoking Status: Former smoker alcohol intake: current alcohol intake frequency: a few times a month Alcohol type: wine substance use type: does not use what type of physical activity do you participate in: walking frequency: 3-4 times per week ROS Review of Systems ROS Unobtainable: other Constitutional Constitutional: Denies fatigue, fever(s), poor appetite, weight gain or weight loss ENT HEENT: Denies mouth lesions Cardiovascular Cardiovascular: Denies abdominal bloating, abdominal edema or abdominal pain Respiratory/Chest Respiratory/Chest: Denies change in mental status, change in phlegm color, chestcongestion or chest tightness Gastrointestinal Gastrointestinal: Denies belching, bloating, change in bowel habits, change in stool character, chewing difficulty, coffee ground emesis, constipation, cramping, diarrhea, dyspepsia, dysphagia, early satiety, excessive flatus, fecalincontinence, heartburn, hematemesis, hematochezia, hemorrhoids, loose stools, melena, nausea, odynophagia, rectal bleeding, tenesmus, vomiting or weight changes Genitourinary Genitourinary: Denies abdominal discomfort, burning urination or itching Musculoskeletal Musculoskeletal: Reports as per HPI; Denies muscle weakness or myalgias Integumentary Integumentary: Denies jaundice Neurologic Neurologic: Denies lack of coordination or weakness Psychiatric Psychiatric: Denies confusion, depression, memory loss, mood swings, paranoia orsuicidal ideation Endocrine Endocrinology: Denies systems reviewed and no addt'l complaints, except as documented Hematologic/Lymphatic Hematologic/Lymphatic: Denies anemia, easy bleeding, easy bruising or lymphadenopathy Allergic/Immunologic Allergic/Immunologic: Denies systems reviewed and no addt'l complaints, except as documented Vital Signs Vital Signs Vital Signs: 11/02/23 06:12 11/02/23 06:12 Temperature 98.3 F Temperature Source Temporal Pulse Rate 60 Respiratory Rate 18 Respiratory Pattern Normal Blood Pressure 156/87 H Blood Pressure Mean 110 Blood Pressure Source Monitor Blood Pressure Position Semi-Fowlers Blood Pressure Location Right Arm Pulse Ox 100 Oxygen Delivery Method Room Air Weight Weight: 158 lb Body Mass Index (BMI) 23.3 Physical Exam Const alert General Appearance: cooperative Orientation / Consciousness: oriented to person HEENT hearing grossly normal bilaterally Head and Scalp: normal to inspection Face and Sinus: face symmetric Nose: external nose normal Mouth: oral and palatal mucosa normal Eyes conjunctivae normal General Eye: normal appearance of both eyes Neck full ROM General: normal visual inspection Lymph Lymphatic: no lymphadenopathy noted Chest inspection of chest normal and palpation of chest normal Chest: symmetrical chest wall rise Resp normal respiratory effort Effort and Inspection: able to speak in complete sentences Cardio regular rate GI non-distended Percussion: normal to percussion Rectal Exam: deferred Neuro Speech: speech normal Gait (Neuro): normal gait Assessment & Plan Assessment/Plan (1) Encounter for screening for malignant neoplasm of colon: PLAN: 68-year-old comes in with past medical history of hypertension, CAD history of CA status post PTCA with stents for screening colonoscopy. She was explained alternatives, risk, benefits including not withstanding bleeding, infection, sepsis, perforation, need for emergent surgery and . She will have an ASA of 3. 11/02/23 0658 <Electronically signed by Ramin Dunlap DO> Cosigner Signature (if applicable): CC: Dr. Kaushal Gastelum MD; Ramin Dunlap DO~ Signed [facility] Work Phone: Summary Purpose Family History No Family History Records Found Relationship Condition Age at Onset Recorded Date/T mario Not Specified Malignant neoplasm Unknown Hypertension Unknown Advance Directives No Advanced Directives Records Found Advance Directive Response Recorded Date/ Time Advance Directives No December 03 11:03am Living Will No December 03, 2020 11:03am Power of Warp Splitter No December 03 11:03am Advance Directive Response Recorded Date/ Time Advance Directives No May 19, 2022 11:22am Living Will No January 16, 2023 7 :19pm Power of Warp Splitter No January 16, 2023 7:19pm Advance Directive Response Recorded Date/ Time Advance Directives No May 19, 2022 10:22am Living Will No August 29 8:50am Power of Warp Splitter No August 29, 2023 8:50am Advance Directive Response Recorded Date/ Time Advance Directives No September 9:25am Living Will No November 01, 2023 9:59am Power of Warp Splitter No October 31 9:59am Chief Complaint and Reason for Visit Chief Complaint SORE THROAT/COVID TE ST SCREENING Reason for Visit Encounter for screen ing for COVID-19 Nasal congestion Sore throat Chief Complaint HYPERTENSION Chief Complaint Amb Documentation Unspecified abdominal pain ABNORMAL EKG SURGICAL CLEARANCE ABNORMAL EKG Reason for Visit [id number] Essential (primary) hypertension Mixed hyperlipidemia Chief Complaint ABNORMAL EKG ABNORMAL EKG SURGICAL CLEARANCE ABNORMAL EKG ABN STRESS TEST, CP Amb Documentation Reason for Visit [id number] Essential (primary) hypertension Mixed hyperlipidemia Encounter for screening for malignant neoplasm of colon Additional Source Comments INFORMATION SOURCE (unrecogn ized section and content) DATE CREATED AUTHOR 09/05/2020 [facility] DATE CREATED AUTHOR AUTHOR'S ORGANIZ ATION 06/11/2024 [facility] DATE CREATED AUTHOR AUTHOR'S ORGANIZ ATION 07/26/2024 [facility] Reason for Visit (unrecogniz ed section and content) Reason Comments Heart Problem Patient presents in cardiology today. She sees a national investigative producer at [facility]. She is retiring and here to establish care at [facility]. H/O CA in 2014. Reason Comments Follow-up 1 yr [...] Care Teams (unrecognized sec tion and content) Team Status: Active Member Role Status Dates Dr. Kaushal Gastelum MD Family Provider Active Dr. Kaushal Gastelum MD Primary Care Provider Activ e Team Status: Inactive Member Role Status Dates Dr. Kaushal Gastelum MD Primary Care Provider Activ e Dr. Jasper Hurst MD Emergency Provider Active Team Status: Inactive Member Role Status Dates Dr. Kaushal Gastelum MD Primary Care Provider Activ e Dr. Jasper Hurst MD Attending Provider, Emergency Provider Active Team Status: Inactive Member Role Status Dates Dr. Kaushal Gastelum MD Primary Care Provider Activ e Health Risk Assessment Attending Provider Active Intranet Support Relationship Specialty Start Date End Date Arsenio Gastelum MD [address] [place] [address] PCP - General 06/16/23 Team Status: Active Member Role Status Dates Dr. Kaushal Gastelum MD Primary Care Provider Activ e María Mayers Attending Provider Active Team Status: Inactive Member Role Status Dates Dr. Kaushal Gastelum MD Primary Care Provider, Refe ing Provider Active Ling ALARCON, PA Attending Provider Active Team Status: Active Member Role Status Dates Dr. Kaushal Gastelum MD Primary Care Provider Activ e Ling ALARCON, PA Referring Provider, Other Provider Active Dr. Deborah Noland MD Attending Provider Activ e Team Status: Inactive Member Role Status Dates Dr. Kaushal Gastelum MD Primary Care Provider, Attending Provider, Referring Provider Active Team Status: Inactive Member Role Status Dates Dr. Kaushal Gastelum MD Primary Care Provider Activ e Ling ALARCON PA Attending Provider, Referr ing Provider Active Team Status: Active Member Role Status Dates Dr. Kaushal Gastelum MD Primary Care Provider Activ e Dr. Deborah Noland MD Attending Provider Activ e [place] Referring Provider Active Team Status: Active Member Role Status Dates Dr. Kaushal Gastelum MD Primary Care Provider, Refe rring Provider Active Dr. Ramin Dunlap DO Attending Provider, Other Prov ider Active Team Status: Inactive Member Role Status Dates Dr. Kaushal Gastelum MD Primary Care Provider Activ e Dr. Deborah Noland MD Attending Provider, Refe rring Provider Active Team Status: Inactive Member Role Status Dates Dr. Kaushal Gastelum MD Primary Care Provider, Refe rring Provider Active Dr. Ramin Dunlap DO Attending Provider Active [employer] Support Relationship Specialty Start Date End Date Arsenio Gastelum MD [address] [place] [address] PCP - General 06/16/23 FOR RECORDS PERTAINING [...] BE BASED ON THE PRIMARY CLINICAL RECORDS. [facility]. provides no warranty or guarantee of the accuracy or completeness of information in this document.
[2025-01-21 07:45] LABS: ALB/GLOB Ratio 1.6 RATIO (0.9-2.4); AST(SGOT) 24 U/L (<=31); Alanine Aminotransfer ALT/SGPT 20 U/L (<=34); Albumin, Serum 4.2 g/dL (3.4-4.8); Alkaline Phosphatase 84 U/L (35-104); Anion Gap 11 (5-15); BUN 11 mg/dL (4-19); BUN/Creat Ratio 13.3 RATIO (10-20); Calcium,Total 9.4 mg/dL (7.6-11.0); Carbon Dioxide 23.9 mmol/L (21.0-32.0); Chloride 104 mmol/L (98-108); Cholesterol 184 mg/dL (<=200); Creatinine, Serum 0.83 mg/dL (0.70-1.20); EST Glomerular Filtration Rate 77 (>60); Globulin 2.6 g/dL (2.2-4.2); Glucose 99 mg/dL (70-99); High Density Lipoprotein 74 mg/dL; Low Density Lipoprotein Calc. 92 mg/dL; Potassium 3.9 mmol/L (3.3-5.1); Protein, Total 6.9 g/dL (5.9-8.4); Sodium Level 138 mmol/L (133-145); Total Bilirubin 0.71 mg/dL (0.00-1.30); Triglycerides 93 mg/dL; Very Low Density Lipoprotein 19 mg/dL (5-40)
== END | disposition home or self-care (01) ==
PROVIDERS: PCP Family Medicine; Referring Provider Physician Assistant Medical; Visit Provider Physician Assistant Medical
DX: E78.2 Mixed hyperlipidemia (principal); I10 Essential (primary) hypertension; I25.10 Atherosclerotic heart disease of native coronary artery without angina pectoris
CPT/HCPCS: 36415; 80053; 80061